=== PATIENT | male | born 1950 | race Caucasian/White ===

== ENCOUNTER → 2023-10-20 10:54 | Outpatient (REF) | payer MEDICARE, SELFPAY | LOC: HWRAD 10:54 | PROVIDERS: ATTENDING PHYSICIAN Family Medicine | DX: I25.10 Atherosclerotic heart disease of native coronary artery without angina pectoris (principal) | CPT/HCPCS: 71046 ==

== ENCOUNTER → 2023-12-25 12:31 | Outpatient (REF) | payer MEDICARE, SELFPAY | LOC: RAD 12:31 | PROVIDERS: ATTENDING PHYSICIAN Physician Assistant; FAMILY PHYSICIAN Family Medicine | DX: I73.9 Peripheral vascular disease, unspecified (principal); R60.9 Edema, unspecified | CPT/HCPCS: 93922; 93925; 93971 ==

== ENCOUNTER 2024-05-02 09:26 | Emergency (ER) | payer MEDICARE, SELFPAY ==
[2024-05-02 09:45] VITALS: BP 120/69
--- NOTE | 2024-05-02 10:05 | ED.GENMED ---
History of Present Illness
General
Chief Complaint: Skin Problem
Source: patient
Time Seen by Provider: 05/02/24 09:50
History of Present Illness
History of Present Illness:
Patient is concerned with an area of ecchymosis over his right posterior elbow. No pain. No known trauma. No other unusual bruising. No distal numbness tingling or weakness.
Past History
Past History
ED Past Medical History: CAD, HTN and Hypercholesterolemia
ED Past Surgical History: Cardiac, Orthopedic and Other (Vascular surgery)
Social History
Tobacco: Non-smoker
Personal:
Living: with family
Employment: Employed
Review of Systems
Review of Systems
All Other Systems: Not applicable
Constitutional: Denies fever or chills
Phy Exam
Physical Exam
Physical Exam:
GENERAL: Alert and oriented in no apparent distress
CARDIAC: Regular rate and rhythm
LUNGS: No respiratory distress
NEUROLOGICAL: Alert and oriented , grossly non-focal
SKIN: Warm and dry, fairly large area of superficial ecchymosis over the right posterior elbow. Approximately 20 cm x 10 cm. No warmth no erythema no open wound. No other unusual bruising
MUSCULOSKELETAL: No edema,no deformity.Good color. No bony tenderness to the right elbow. Good range of motion. Nontender
PSYCH: Normal and appropriate interaction.
Course
Orders/Labs/Results
Orders:
Orders
05/02/24 10:00
Basic Metabolic Panel Urgent
Complete Blood Count/With Diff Urgent
05/02/24 10:56
Potassium Urgent
Abnormal Lab Results
05/02/24
10:00
Potassium 5.3 H mmol/L
(3.5-5.1)
Chloride 109 H mmol/L
(98-107)
BUN 22 H mg/dl
(9-20)
05/02/24 10:00
05/02/24 10:00
Vital Signs
Initial and Last Documented VS:
Initial Vital Signs
Temp Pulse Resp BP Pulse Ox
98.3 F 69 16 120/69 97
05/02/24 09:45 05/02/24 09:45 05/02/24 09:45 05/02/24 09:45 05/02/24 09:45
Last Documented Vital Signs
Temp Pulse Resp BP Pulse Ox
98.3 F 69 16 120/69 97
05/02/24 09:45 05/02/24 09:45 05/02/24 09:45 05/02/24 09:45 05/02/24 09:45
MDM/Problems Addressed
Differential Diagnosis Includes:
Clinically this is a large subcutaneous area of ecchymosis without significant bony abnormality. Nothing to support DVT. No signs of cellulitis. Will check a CBC to evaluate platelets.
Labs stable. Minimal hyperkalemia which was a incidental finding. Likely hemolysis. Will recheck potassium. No reason to stay at this time. If remains minimally elevated can follow-up.
*Pulse Oximetry
Patient hypoxic: no
*Critical Care Note
Total Time (30-74mins, 75-104mins- exclusive of procedures): Not Applicable
Data Reviewed
Review of Other/Old Records Reveals: Labs and Testing
ED Attending Note
-
Portions of this chart may have been created with voice recognition software.� Occasional wrong word or��sound alike� substitutions may have occurred due to the inherent limitations of voice recognition software.
Discharge Plan
Departure
Patient Disposition: Home (Routine Discharge)
Date of Disposition: 05/02/24
Time of Disposition: 10:57
Patient with high blood pressure during this ER visit?: No
Discharge Problem:
Right arm ecchymosis, Mild hyperkalemia
Instructions: Hyperkalemia, Contusion
Prescriptions:
No Action
simvastatin [Zocor] 20 mg Tablet
20 mg PO HS
metoprolol succinate [Toprol XL] 25 mg Tablet Extended Release 24 Hr
12.5 mg PO DAILY
ezetimibe [Zetia] 10 mg Tablet
10 mg PO QPM
coQ10 (ubiquinol) 100 mg Capsule
300 mg PO QPM
magnesium oxide 400 mg magnesium Tablet
400 mg PO QPM
tamsulosin 0.4 MG capsule
0.4 mg PO QPM
aspirin 81 mg Tablet,Delayed Release (Dr/Ec)
81 mg PO DAILY
clopidogrel 75 mg Tablet
75 mg PO DAILY Qty: 90 0RF
Referrals:
Nicolas Escobar, [Family Provider] - Follow up in 2-3 days
Activity Restrictions/Additional Instructions:
I will call you about your repeat potassium result
This area of bruising/ecchymosis should self resolved. Return with redness swelling pain fever spreading ecchymosis or any other concerning symptoms.
Interventions
Interventions:
*Risk Screen - Suicide Last Done: 05/02/24 10:05
*General Assessment Last Done: 05/02/24 10:05
*Neglect/Abuse Screening Last Done: 05/02/24 10:05
*ED COVID-19 Vaccine History Last Done: 05/02/24 10:05
Discharge Date and Time
Print Language: KOREAN
[2024-05-02 10:19] LABS: % Basophils 0.5 % (0-2); % Eosinophils 1.1 % (0-6); % Immature Granulocytes 0.4 % (0-0.5); % Lymphocytes 20.8 % (20.5-51.1); % Monocytes 5.9 % (1.7-9.3); % Neutrophils 71.3 % (42.2-75.2); Absolute Eosinophils 0.1 10^3/uL (0-0.7); Absolute Lymphocytes 1.7 10^3/uL (1.2-3.4); Absolute Monocytes 0.5 10^3/uL (0.1-0.6); Absolute Neutrophils 5.9 10^3/uL (1.4-6.5); Hemoglobin 17.4 g/dL (13.0-18.0); Mean Corp Hgb Conc. 34.1 g/dL (33.0-37.0); Mean Corpuscular Hgb 29.2 pg (27.0-31.0); Mean Corpuscular Volume 85.6 fL (80.0-94.0); Mean Platelet Volume 9.7 fL (7.4-10.4); Nucleated Red Blood Cells % 0 % (-); Platelet Count 177 10^3/uL (130-400); Red Blood Cell Count 5.96 10^6/uL (4.70-6.10); Red Cell Dist. Width 13.2 % (11.5-14.5); White Blood Cell Count 8.3 10^3/uL (4.8-10.8)
[2024-05-02 10:33] LABS: Blood Urea Nitrogen 22 mg/dl (9-20); Calcium 9.8 mg/dl (8.4-10.2); Carbon Dioxide 23 mmol/L (22-30); Chloride 109 mmol/L (98-107); Glucose 94 mg/dl (70-99); Potassium 5.3 mmol/L (3.5-5.1); Sodium 140 mmol/L (135-145); eGFR > 60.00
[2024-05-02 11:19] VITALS: BP 124/74
== END 2024-05-02 11:15 | disposition home or self-care (01) ==
LOC: EMR 09:26
PROVIDERS: EMERGENCY PHYSICIAN Emergency Medicine; FAMILY PHYSICIAN Family Medicine
DX: S50.01XA Contusion of right elbow, initial encounter (principal); E87.5 Hyperkalemia; X58.XXXA Exposure to other specified factors, initial encounter; I10 Essential (primary) hypertension; E78.00 Pure hypercholesterolemia, unspecified; I25.10 Atherosclerotic heart disease of native coronary artery without angina pectoris; Z79.82 Long term (current) use of aspirin; Z88.5 Allergy status to narcotic agent; Z91.048 Other nonmedicinal substance allergy status
CPT/HCPCS: 99283; 80048; 84132; 85025

== ENCOUNTER 2024-05-17 15:37 | Inpatient (IN) | payer MEDICARE, SELFPAY ==
[2024-05-17 11:08] VITALS: BP 126/89
--- NOTE | 2024-05-17 12:05 | ED.GENMED ---
History of Present Illness
General
Chief Complaint: Vascular Symptoms
Source: patient, records, spouse, previous radiology exam and previous hospital records
Exam Limitations: none
Time Seen by Provider: 05/17/24 11:30
Nursing documentation reviewed up to this point in time: agreed with
History of Present Illness
History of Present Illness:
74-year-old male presents with coolness and pain to his right foot into his calf history of the same when he occluded his right femoral artery stent was placed about 15 years ago [facility] followed locally by Dr. Hernandez did have some
bruising of his right arm week or 2 ago aspirin was stopped maintained on Plavix no trauma in his arm no pain
Past History
Past History
ED Past Medical History: CAD, HTN and Hypercholesterolemia
ED Past Surgical History: Cardiac, Orthopedic and Other (Vascular surgery)
Social History
Tobacco: Former smoker
Alcohol: None
Drug: None
Personal:
Living: with family
Employment: Employed
Review of Systems
Review of Systems
All Other Systems: Not applicable
Constitutional: Denies fever or fatigue
EENT: Reports no symptoms
Respiratory: Reports no symptoms
Cardiac: Reports no symptoms
ABD/GI: Reports no symptoms
Musculoskeletal: Reports muscle stiffness and back pain (Chronic)
Skin: Reports no symptoms
Neurological: Reports numbness; Denies dizzy
Endocrine: Reports no symptoms
Phy Exam
Physical Exam
Physical Exam:
Physical Exam
General: no apparent distress, not acutely ill
Neck: No jaundice
Heart: s1/s2 regular rate and rhythm, no murmur. equal radial pulses.
Lungs: no acute respiratory distress. clear bilaterally
Abdomen: Nontender
Neuro: alert and oriented. no focal neurological deficits
Skin: no rash
Psychiatric: well kept. interactive and cooperative
Extremities: Right lower extremity no pallor, slightly cool, diminished posterior tibialis pulse
Course
Orders/Labs/Results
Orders:
Orders
05/17/24 11:46
Vascular Surgery Consult Urgent
Consulting Provider: Kervin Hernandez
Was physician already notified: Yes
05/17/24 12:09
Electrocardiogram (*1) Urgent
Reason for Study: QTc Monitoring
EKG- Treatment ONCE
05/17/24 12:15
CT Abd Aorta Angio W/ Run Off Stat
Comment:
Reason For Exam: cold leg, do not wait for labs please
05/17/24 12:29
Heparin Protocol- PTT Orders As Directed
PTT per Heparin protocol: -Obtain CBC and baseline PTT - if not already collected.
-Obtain PTT 6 hours from start of infusion. Then, every 6 hours until 2 consecutive
PTT's are therapeutic. Then, PTT Daily.
-With each rate change, obtain PTT every 6 hours until 2 consecutive PTT's are
therapeutic. Then, PTT Daily.
Notify MD As Directed
Notify physician if: PTT is greater than or equal to 200.
05/17/24 12:30
Heparin 24678 Units/250 ml 25,000 units in 250 ml IV PER PROTOCOL
Weight to be used for heparin protocol in kilograms (kg):: 92
Protocol:: Vascular Surgery
PTT Goal Range to be used:: PTT 73 to 111 seconds
Order type:: Initial
INITIAL Infusion Dose (UNITS/KG/hr) & then follow protocol:: 18 units/kg/hr
Infusion Dose in UNITS/hr & then follow protocol (UNITS/hr):: 1,700
INFUSION RATE in mL/hr & then follow protocol (mL/hr):: 17
PTT less than or equal to 64 seconds:: Notify Ordering Provider. obtain orders for rate increase &
possible bolus
PTT 64.1 to 72.9 seconds:: Increase rate by 100 units/hr (+ 1 mL/hr)
PTT 73 to 111 seconds:: Target Range. No change in rate.
PTT 111.1 to 130.9 seconds:: Decrease rate by 100 units/hr (- 1 mL/hr)
PTT 131 to 199.9 seconds:: HOLD for 1 hour. Then decrease rate by 200 units/hr (- 2 mL/hr)
PTT greater than or equal to 200 seconds:: STOP INFUSION. Notify Ordering provider to obtain further orders.
Lab follow-up:: Each change, PTT q6h until 2 consecutive are therapeutic. Then PTT
daily.
05/17/24 12:31
Complete Blood Count/With Diff Urgent
Comprehensive Metabolic Panel Urgent
PTT Urgent
Prothrombin Time Urgent
05/19/24 06:00
Complete Blood Count/No Diff Q2D
Comment: Notify MD if platelet count is <130,000 or decreases by 50% from baseline
05/21/24 06:00
Complete Blood Count/No Diff Q2D
Comment: Notify MD if platelet count is <130,000 or decreases by 50% from baseline
05/23/24 06:00
Complete Blood Count/No Diff Q2D
Comment: Notify MD if platelet count is <130,000 or decreases by 50% from baseline
05/25/24 06:00
Complete Blood Count/No Diff Q2D
Comment: Notify MD if platelet count is <130,000 or decreases by 50% from baseline
05/27/24 06:00
Complete Blood Count/No Diff Q2D
Comment: Notify MD if platelet count is <130,000 or decreases by 50% from baseline
05/29/24 06:00
Complete Blood Count/No Diff Q2D
Comment: Notify MD if platelet count is <130,000 or decreases by 50% from baseline
05/31/24 06:00
Complete Blood Count/No Diff Q2D
Comment: Notify MD if platelet count is <130,000 or decreases by 50% from baseline
06/02/24 06:00
Complete Blood Count/No Diff Q2D
Comment: Notify MD if platelet count is <130,000 or decreases by 50% from baseline
Abnormal Lab Results
05/17/24
12:31
Absolute Neuts (auto) 7.8 H 10^3/uL
(1.4-6.5)
Neutrophils % 79.1 H %
(42.2-75.2)
Lymphocytes % 14.6 L %
(20.5-51.1)
Potassium 5.2 H mmol/L
(3.5-5.1)
05/17/24 12:31
05/17/24 12:31
Vital Signs
Initial and Last Documented VS:
Initial Vital Signs
Temp Pulse Resp BP Pulse Ox
98.0 F 64 18 126/89 96
05/17/24 11:08 05/17/24 11:08 05/17/24 11:08 05/17/24 11:08 05/17/24 11:08
Last Documented Vital Signs
Temp Pulse Resp BP Pulse Ox
98.0 F 58 12 134/70 97
05/17/24 11:08 05/17/24 12:32 05/17/24 12:32 05/17/24 12:32 05/17/24 12:32
MDM/Problems Addressed
Differential Diagnosis Includes:
Venous occlusion stent occlusion PVD
MDM/Problems Addressed:
Pain coolness of his
Chronic conditions affecting care:
PVD
Acute Exacerbation and/or Progression of Chronic Illness:
PVD
*Radiology
Radiology exam reviewed: preliminary read by ED provider
*Pulse Oximetry
Patient hypoxic: no
*EKG
Interpreted by ED Provider?: Yes
Interpretation: normal
Comparison EKG: no comparison EKG present
Heart Rate: 78
Rate: normal
Ischemia: non-specific ST changes
*Super[employer] Interpretation
Rate: normal
Interpretation: normal
Heart Rate: 78
Rhythm: sinus
*Critical Care Note
Total Time (30-74mins, 75-104mins- exclusive of procedures): Not Applicable
Data Reviewed
Review of Other/Old Records Reveals: Labs, Operative Reports and Discharge Summary
Source: patient
Update Note
Update Note:
Labs noted, vascular surgery note reviewed
ED Attending Note
-
Portions of this chart may have been created with voice recognition software.� Occasional wrong word or��sound alike� substitutions may have occurred due to the inherent limitations of voice recognition software.
Discharge Plan
Departure
Patient Disposition: Admit
Date of Disposition: 05/17/24
Time of Disposition: 13:20
Admit to: Med/Surg
Presentation/result/management discussed w/ accepting MD/DO: Hospitalist
Patient with high blood pressure during this ER visit?: No
Condition: Fair
Discharge Problem:
Peripheral vascular disease
Prescriptions:
No Action
simvastatin [Zocor] 20 mg Tablet
20 mg PO HS
metoprolol succinate [Toprol XL] 25 mg Tablet Extended Release 24 Hr
12.5 mg PO DAILY
ezetimibe [Zetia] 10 mg Tablet
10 mg PO QPM
coQ10 (ubiquinol) 100 mg Capsule
300 mg PO QPM
magnesium oxide 400 mg magnesium Tablet
400 mg PO QPM
tamsulosin 0.4 MG capsule
0.4 mg PO QPM
aspirin 81 mg Tablet,Delayed Release (Dr/Ec)
81 mg PO DAILY
clopidogrel 75 mg Tablet
75 mg PO DAILY Qty: 90 0RF
Interventions
Interventions:
*Risk Screen - Suicide Last Done: 05/17/24 11:08
*General Assessment Last Done: 05/17/24 11:08
*Neglect/Abuse Screening Last Done: 05/17/24 11:08
ED- Cardiac Assessment Last Done: 05/17/24 12:35
ED- Pulmonary Assessment Last Done: 05/17/24 12:35
ED-Peripheral Vascular Assessment Last Done: 05/17/24 12:35
ED-Skin Assessment Last Done: 05/17/24 12:35
Discharge Date and Time
Print Language: KOSOVAN
--- NOTE | 2024-05-17 12:17 | CON.VAS ---
Addendum entered and electronically signed by Lizandro Stoner III, MD 05/17/24 20:03:
This patient was seen and examined with MELONIE Juares. I agree with the history and physical exam as well as the assessment and plan. I have the following additions:
Patient is known to the vascular surgery service
Lower extremity endovascular interventions performed at [facility] many years ago
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
Had an episode of acute stent thrombosis 1 year ago in April 2023 that was treated endovascularly
Has another recurrent event in the right lower extremity
Onset of lower extremity discomfort earlier today similar to what he experienced a year ago
I personally reviewed the CT angiogram images which show thrombosis of the right superficial femoral artery stent and distal reconstitution of the popliteal artery.
On physical examination he is grossly intact from a neuro motor standpoint in the left lower extremity, foot and toes
He has a monophasic Doppler signal in the right posterior tibial artery at the ankle
My recommendation is for therapeutic anticoagulation with heparin
Continue antiplatelet therapy
Vein mapping
Revascularization with either RLE bypass, if he has acceptable UE vein conduit (prior b/l LE GSV harvests), or consideration of percutaneous transmural artery bypass/DETOUR which may be a good option for him.
We will continue discussions and development of surgical plan over the weekend.
Call with questions or concerns
Signed:
Lizandro Stoner III, MD
[facility] Vascular Surgery
[phone] ([facility])
Addendum entered and electronically signed by MELONIE Juares 05/17/24 14:15:
Dr. Stoner reviewed CTA with patient and . Right SFA is occluded.
Plan:
-Admit to medicine
-Continue heparin drip
-Upper extremity vein mapping, for bypass early next week
-Cardiac optimization
Original Note:
Consultation
Consultation Request
Performing Provider: Dannielle WILHELM
Reason for Consultation: Cold leg
Medical History
-
Chief Complaint: Right lower extremity pain
History of Present Illness:
74-year-old male well-known to the vascular service presents to the ER today for sudden onset right calf and foot pain while playing pickle ball this morning. Denies trauma or injury. Patient had a Viabahn stent placed with an a prior stent in his
right SFA on 05/02/[address] Hernandez. Patient reports no issues since that stent placement. Vascular consult for right lower extremity pain.
Patient seen at bedside in the ER this a.m. with present. Patient admits to sudden onset pain in the right foot and calf while playing pickle ball. Patient states he left pickleball to go home once arriving home his brought him to the
ER. The pain has subsided but patient notes the foot feels stiff when attempting to move his toes, feels cool to him and there is a decrease in the sensation he feels. His toes nails are dusky and cap refill is delayed. He has +1/2 femoral pulse
and a faint Doppler signal at the PT. patient was recently here on 05/02/2024 in the ER for bruising of the right upper extremity. He had reached out to Dr. Hernandez's office and was notified he could stop taking his aspirin. He has continued on his
Plavix and has not missed a dose.
Vascular procedure:
05/02/23: Placement of [place] Viabahn 6 mm x 10 cm covered stent through occluded SFA stent.
Dr Herrera Oliver Right SFA stent from ' years ago'
Past Medical History
Past Medical History: HTN, Hypercholesterolemia and Other (PAD)
Past Surgical History: Other (See above)
Social History
Tobacco: Non-Smoker
Personal:
Living: With Family
Family History
Family History: Reviewed & Not Pertinent
Allergies / Home Medications
Allergy/AdvReac Type Severity Reaction Status Date / Time
codeine Allergy UNSURE OF Verified 05/17/24 11:08
REACTION
pollen extracts Allergy Unknown Verified 05/17/24 11:08
�Medication �Instructions �Recorded �Confirmed �Type
aspirin 81 mg tablet,delayed 81 mg PO DAILY 05/02/23 05/02/23 History
release
coQ10 (ubiquinol) 100 mg capsule 300 mg PO QPM 05/02/23 05/02/23 History
ezetimibe 10 mg tablet (Zetia) 10 mg PO QPM 05/02/23 05/02/23 History
magnesium oxide 400 mg PO QPM 05/02/23 05/02/23 History
metoprolol succinate 25 mg 12.5 mg PO DAILY 05/02/23 05/02/23 History
tablet,extended release 24 hr
(Toprol XL)
simvastatin 20 mg tablet (Zocor) 20 mg PO HS 05/02/23 05/02/23 History
tamsulosin 0.4 mg capsule 0.4 mg PO QPM 05/02/23 05/02/23 History
clopidogrel 75 mg tablet 75 mg PO DAILY #90 tabs 05/03/23 Rx
Review of Systems
-
History Source: Patient
All other systems: Negative unless noted
Constitutional: Reports No Symptoms
EENT: Reports No Symptoms
Respiratory: Reports No Symptoms
Cardiac: Reports No Symptoms
Vascular: Reports Leg Pain / Claudication and Numbness
Abdomen/GI: Reports No Symptoms
: Reports No Symptoms
Musculoskeletal: Reports Muscle Stiffness
Skin: Reports No Symptoms
Neurological: Reports No Symptoms
Endocrine: Reports No Symptoms
Physical Exam
Vital Signs
Temp Pulse Resp BP Pulse Ox
98.0 F 64 18 126/89 96
05/17/24 11:08 05/17/24 11:08 05/17/24 11:08 05/17/24 11:08 05/17/24 11:08
Physical Exam
General: No Apparent Distress
HEENT: Normocephalic and Atraumatic
Respiratory: Non Labored Respirations
Cardiac: Negative JVD
GI: Soft and Non Tender
Musculoskeletal: No Clubbing and Cyanosis (Right toenail beds dusky)
Skin: Other (Right foot slightly cooler than left, slightly paler than left)
Neuro: Awake, Alert and Oriented
Psych: Calm
Pulses: Right Femoral: +1, Left Posterior Tibial: +1 and Right Posterior Tibial: Doppler (Faint)
Assessment / Plan
-
74-year-old male with new onset pain, coolness, numbness to the right foot
History of stent thrombosis to the right SFA
New right SFA stent placed last year by Dr. Hernandez
Plan:
-Stat CT angio with runoff
-Heparin drip
-N.p.o. for possible lysis
-Admit to hospitalist
-Discussed with Dr. Hernandez
[2024-05-17 12:32] VITALS: BP 134/70
[2024-05-17 12:53] LABS: APTT 26.5 Sec (23.4-35.0); INR 1.08; PT 13.9 Sec (11.4-14.6)
[2024-05-17 13:07] LABS: % Basophils 0.2 % (0-2); % Eosinophils 0.2 % (0-6); % Immature Granulocytes 0.4 % (0-0.5); % Lymphocytes 14.6 % (20.5-51.1); % Monocytes 5.5 % (1.7-9.3); % Neutrophils 79.1 % (42.2-75.2); Absolute Lymphocytes 1.4 10^3/uL (1.2-3.4); Absolute Monocytes 0.5 10^3/uL (0.1-0.6); Absolute Neutrophils 7.8 10^3/uL (1.4-6.5); Hematocrit 44.3 % (39.0-52.0); Mean Corp Hgb Conc. 33.9 g/dL (33.0-37.0); Mean Corpuscular Hgb 28.8 pg (27.0-31.0); Mean Platelet Volume 9.5 fL (7.4-10.4); Nucleated Red Blood Cells % 0 % (-); Platelet Count 203 10^3/uL (130-400); Red Blood Cell Count 5.21 10^6/uL (4.70-6.10); Red Cell Dist. Width 12.9 % (11.5-14.5); White Blood Cell Count 9.8 10^3/uL (4.8-10.8)
[2024-05-17 13:08] LABS: ALT (SGPT) 14 U/L (0-50); AST (SGOT) 26 U/L (17-59); Albumin 3.9 g/dl (3.5-5.0); Alkaline Phosphatase 84 U/L (38-126); Blood Urea Nitrogen 15 mg/dl (9-20); Calcium 9.4 mg/dl (8.4-10.2); Carbon Dioxide 29 mmol/L (22-30); Chloride 107 mmol/L (98-107); Glucose 98 mg/dl (70-99); Potassium 5.2 mmol/L (3.5-5.1); Sodium 144 mmol/L (135-145); Total Bilirubin 0.8 mg/dl (0.2-1.3); Total Protein 6.3 g/dl (6.3-8.2); eGFR > 60.00
[2024-05-17 13:17] VITALS: BP 145/71
[2024-05-17] MEDS: HEPARIN 25000 UNITS/250 ML IV (13:21)
--- NOTE | 2024-05-17 14:26 | HPS.HSE ---
Family Physician
-
Family Physician:
Chief Complaint
-
Right calf and foot pain
History of Present Illness
74-year-old male with a past medical history PAD status post right SFA stent on 05/02/2023, CAD status post CABG and cardiac stent placement, hypertension, hyperlipidemia, anxiety/depression, BPH presents with acute onset of right calf and foot pain
while pain pickleball. Patient denies pain at rest, but states pain occurs when he walks. Associated symptoms include decreased sensation in the right foot, and his right foot is cool to the touch. He also reports spontaneous bruising of his
right arm a few weeks ago. He denies trauma. He reached out to Dr. Hernandez's office, and was told to stop taking his aspirin. He has continued his Plavix. No fever, no chest pain, no shortness of breath. No black or bloody stools. No hematuria.
No nausea, no vomiting.
Medical History
Past Medical History
Past Medical History: Reports Other
Additional Past Medical History:
Coronary artery disease status post stent placement and CABG
Peripheral artery disease
Kidney stones
Hypertension
Hyperlipidemia
Anxiety/depression
Benign prostatic hypertrophy
Past Surgical History: Reports Other
Additional Past Surgical History:
CABG
Cardiac stents
Bilateral leg stents
Left total knee arthroplasty
Social History
Tobacco: Former Smoker (Quit over 40 years ago)
Alcohol: Occasional
Drug: None
Personal:
Living: With Family
Family History
Family History: Not pertinent
Allergies / Home Medications
Allergies reflects when Allergies were last updated in bttn.
Home Medications with original date entered in bttn
Allergy/Medication List:
Allergies
Allergy/AdvReac Type Severity Reaction Status Date / Time
codeine Allergy UNSURE OF Verified 05/17/24 11:08
REACTION
pollen extracts Allergy Unknown Verified 05/17/24 11:08
Home Medications Table - record
�Medication �Instructions �Recorded �Confirmed
coQ10 (ubiquinol) 100 mg capsule 300 mg PO QPM 05/02/23 05/17/24
ezetimibe 10 mg tablet (Zetia) 10 mg PO QPM 05/02/23 05/17/24
simvastatin 20 mg tablet (Zocor) 20 mg PO HS 05/02/23 05/17/24
tamsulosin 0.4 mg capsule 0.4 mg PO QPM 05/02/23 05/17/24
clopidogrel 75 mg tablet 75 mg PO HS 05/17/24 05/17/24
sertraline 50 mg tablet 25 mg PO HS 05/17/24 05/17/24
Review of Systems
-
A 12 point ROS was completed and negative except as noted: Yes
Physical Exam
Vital Signs
Vital Signs
Temp Pulse Resp BP Pulse Ox
98.0 F 55 12 145/71 99
05/17/24 11:08 05/17/24 13:17 05/17/24 12:32 05/17/24 13:17 05/17/24 13:17
Physical Exam
General: Well Developed, Well Nourished and No Apparent Distress
HEENT: NormoCephalic, Anicteric and Moist mucous membranes
Respiratory: Clear
Cardiac: S1/S2 and Regular Rhythm
Musculoskeletal: No Clubbing, No Edema and Other (Decreased sensation of right foot, right foot cool to the touch, decreased pulses)
Skin: Warm
Neuro: Awake, Alert and Oriented
Psych: Calm
Laboratory Results
-
05/17/24 12:31
05/17/24 12:31
Laboratory Results
PT 13.9 Sec (11.4-14.6) 05/17/24 12:31
INR 1.08 05/17/24 12:31
APTT 26.5 Sec (23.4-35.0) 08/30/24 12:31
Total Bilirubin 0.8 mg/dl (0.2-1.3) 05/17/24 12:31
AST 26 U/L (17-59) 05/17/24 12:31
ALT 14 U/L (0-50) 05/17/24 12:31
Alkaline Phosphatase 84 U/L (38-126) 05/17/24 12:31
Impression/Plan
-
HPI: 74-year-old male with a past medical history PAD status post right SFA stent on 05/02/2023, CAD status post CABG and cardiac stent placement, hypertension, hyperlipidemia, anxiety/depression, BPH presents with acute onset of right calf and foot
pain while pain pickleball. Patient denies pain at rest, but states pain occurs when he walks. Associated symptoms include decreased sensation in the right foot, and his right foot is cool to the touch. He also reports spontaneous bruising of his
right arm a few weeks ago. He denies trauma. He reached out to Dr. Hernandez's office, and was told to stop taking his aspirin. He has continued his Plavix. No fever, no chest pain, no shortness of breath. No black or bloody stools. No hematuria.
No nausea, no vomiting.
#Critical limb ischemia of right lower extremity
#Peripheral artery disease
Status post right SFA stent on 05/02/[address] Hernandez
Appreciate vascular surgery input, for right lower extremity bypass next week
Vascular surgery recommends cardiology consult for optimization
Continue heparin drip, Plavix, statin
Check fasting lipid profile
#Right upper extremity ecchymosis
Denies injury, denies trauma
Stopped aspirin a few weeks ago
Platelets are normal, coag profile normal, unclear etiology
Continue to monitor
#Coronary artery disease status post CABG and stent placement
Continue statin, Plavix
Cardiology consulted by vascular surgery for optimization
#Hyperkalemia
Mild, low potassium diet, recheck in a.m.
#Anxiety/depression
Continue SSRI
#BPH
Continue Flomax
DVT prophylaxis�heparin drip
Full code
Total time spent to see the patient on the floor, examine the patient, review data and lab results, discuss treatment plan with patient, nursing staff around 77 minutes.
--- NOTE | 2024-05-17 15:21 | CON.CAR ---
Addendum entered and electronically signed by Anton Antonio MD 05/17/24 17:11:
I saw and examined the patient.
The GAS FLOW REGULATOR's note was reviewed and I agree with the note.
Primary hand tool lapper Dr. Elizabeth.
74-year-old male with a history of coronary artery disease, coronary artery bypass grafting 2018, coronary stenting with last procedure including stenting of the left circumflex and diagonal 2017, ejection fraction 45 to 50%, PAD left SFA stent
04/2023. Patient is normally active and plays [employer] ball. Today he had acute pain right lower calf and which then migrated into the foot. By the time he got home pain then went up to his upper leg with rest symptoms resolved and now is pain-free.
Seen by vascular surgery. CTA showed occluded right SFA and now patient is being assessed for lower extremity bypass. Due to prior cardiac history preop cardiovascular evaluation requested.
Patient has some increased risk due to previous history of coronary artery disease and coronary stenting along with ejection fraction 45 to 50%. However he has good functional capacity and is able to perform greater than 4 METS without symptoms.
ECG is stable. Although patient has some increased risk his condition appears stable to proceed with vascular surgery as scheduled. No additional changes in testing or medical therapy required.
-Continue aspirin 81 mg a day without interruption
-Patient remains on IV heparin under the direction of vascular surgery
-If patient develops new symptoms then please let us know otherwise we will reassess postoperatively
Original Note:
Consultation
Consultation Request
Date/Time Consultation Requested: 05/17/24 2:15p
Date/Time Consultation Performed: 05/17/24 3p
Requesting Provider: MELONIE Juares
Performing Provider: MELONIE Eugene for Dr. Antonio
Reason for Consultation: pre-op risk assessment
Medical History
-
Chief Complaint: RLE pain
History of Present Illness:
Mr. Aleman is a 74 yo male with CAD s/p CABG 2013, then multiple PCI, last Lcx and diag 2017, prior NSTEMI, ICM EF 45-50%, PAD s/p left SFA stent 04/[address] Hernandez, sinus bradycardia (did not tolerate beta keaton), IVCD, dyslipidemia,
statin intolerance to Crestor (mouth swelling) but tolerates Zocor, who presents to the ER with c/o RLE pain after playing pickle ball today. 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
cyanotic toes. CTA showed occluded right SFA, he was seen by Dr. Stoner who plans for UE vein mapping and bypass early next week. He is admitted to the hospitalist service and we are consulted for pre-op risk assessment. He plays pickle ball 3
times a week w/o any cardiac symptoms. EKG is stable w/o ischemia. He states having spontaneous ecchymosis to RUE and was seen in the ER 05/02/24, Dr. Hernandez recommended stopping ASA and continue Plavix. He also states having COVID 1 month ago.
Past Medical History
Past Medical History: Other (as above)
Past Surgical History: Other (as above)
Social History
Tobacco: Former Smoker
Alcohol: Occasional
Personal:
Living: With Family
Family History
Family History: Reviewed & Not Pertinent
Allergies / Home Medications
Allergy/AdvReac Type Severity Reaction Status Date / Time
codeine Allergy UNSURE OF Verified 05/17/24 11:08
REACTION
pollen extracts Allergy Unknown Verified 05/17/24 11:08
�Medication �Instructions �Recorded �Confirmed �Type
coQ10 (ubiquinol) 100 mg capsule 300 mg PO QPM 05/02/23 05/17/24 History
ezetimibe 10 mg tablet (Zetia) 10 mg PO QPM 05/02/23 05/17/24 History
simvastatin 20 mg tablet (Zocor) 20 mg PO HS 05/02/23 05/17/24 History
tamsulosin 0.4 mg capsule 0.4 mg PO QPM 05/02/23 05/17/24 History
clopidogrel 75 mg tablet 75 mg PO HS 05/17/24 05/17/24 History
sertraline 50 mg tablet 25 mg PO HS 05/17/24 05/17/24 History
Review of Systems
-
History Source: Patient
All other systems: Negative unless noted
Physical Exam
Vital Signs
Temp Pulse Resp BP Pulse Ox
98.0 F 60 14 145/71 98
05/17/24 11:08 05/17/24 14:00 05/17/24 14:00 05/17/24 13:17 05/17/24 14:00
Lab Results
05/17/24 12:31
05/17/24 12:31
Physical Exam
General: Well Developed, Well Nourished and No Apparent Distress
HEENT: Normocephalic, Anicteric and Moist Mucous Membranes
Respiratory: Clear and Non Labored Respirations
Cardiac: S1/S2 and Regular Rhythm
Breast: Deferred by me
GI: Soft, Non Tender, Non Distended and Normal Bowel Sounds
Rectal: Deferred by Provider
Genito-urinary: No Costovertebral Tender
Musculoskeletal: No Clubbing, No Cyanosis and No Edema
Skin: Warm, Dry and Other (RLE toe nails are dusky, cap refill is delayed)
Neuro: AO x 3
Psych: Calm
Impression / Plan
-
Pre-op risk assessment - PAD with occluded right SFA, RLE pain.
- denies any symptoms, specifically CP, SOB or palps.
- able to perform > 4 METS without cardiac symptoms.
- he is euvolemic, no heart failure symptoms, stable weights at home on medical therapy.
- Echo 08/01/23: EF 45-50%, septal hypokinesis, mild MR, nl RV, mild TR.
- intermediate risk given his comorbidities.
RLE pain - CTA showed occluded right SFA.
- he was seen by Dr. Stoner today who plans for UE vein mapping and bypass early next week.
- currently on Heparin and continued on Plavix.
- known PAD with left SFA stent, on Plavix.
CAD - s/p CABG 2013, stable with patent grafts on cath in 2019.
- no anginal symptoms.
- continue medial therapy.
ICM - EF 45-50%.
- no heart failure on exam.
- denies symptoms at home.
- stable weight of 198-199 lbs at home.
- not on BB due to symptomatic bradycardia.
HLD - tolerating Zocor and Zetia.
- 04/2024 LDL 74.
- will review PCSK9 inhibitors at next outpatient visit.
RUE ecchymosis - spontaneous, 05/02/24 ER visit.
- ecchymosis is resolving.
- Dr. Hernandez recommended stopping ASA and has continued on Plavix.
Data Reviewed
-
EKG: Tracing Personally Visualized and interpreted (SB 56 bpm)
CT Scan: Report Reviewed by me (right SFA occluded)
Medical Tests (Nuc Med, Echo etc): Report Reviewed by me (Echo 08/01/23: EF 45-50%, septal hypokinesis, mild MR, nl RV, mild TR.) and Other (Cath 2019: CRUZ-LAD, SVG-OM1, SVG-RPDA patent; no culprit for NSTEMI)
Labs: Labs Reviewed by me
Old Records: Reviewed
[2024-05-17 16:34] VITALS: BP 136/93
[2024-05-17 16:48] VITALS: BP 126/72; BMI 28.3
[2024-05-17] MEDS: FLOMAX 0.4 MG PO (18:11)
[2024-05-17] MEDS: ZETIA 10 MG PO (18:11)
[2024-05-17] MEDS: ASPIR LOW (ENTERIC COATED) 81 MG PO (18:11)
[2024-05-17 19:53] LABS: APTT 81.9 Sec (23.4-35.0)
[2024-05-17] MEDS: ZOLOFT 25 MG PO (21:33)
[2024-05-17] MEDS: PLAVIX 75 MG PO (21:33)
[2024-05-17 23:26] VITALS: BP 118/68
[2024-05-18] MEDS: HEPARIN 25000 UNITS/250 ML IV ×2 (04:23→22:06)
[2024-05-18 07:00] VITALS: BP 127/65
--- NOTE | 2024-05-18 08:07 | W.PN.HOSP.TC ---
Today's Communication/Plan
-
see bold
Assessment / Plan
Assessment / Plan
HPI: 74-year-old male with a past medical history PAD status post right SFA stent on 05/02/2023, CAD status post CABG and cardiac stent placement, hypertension, hyperlipidemia, anxiety/depression, BPH presents with acute onset of right calf and foot
pain while pain pickleball. Patient denies pain at rest, but states pain occurs when he walks. Associated symptoms include decreased sensation in the right foot, and his right foot is cool to the touch. He also reports spontaneous bruising of his
right arm a few weeks ago. He denies trauma. He reached out to Dr. Hernandez's office, and was told to stop taking his aspirin. He has continued his Plavix. No fever, no chest pain, no shortness of breath. No black or bloody stools. No hematuria.
No nausea, no vomiting.
#Critical limb ischemia of right lower extremity
#Peripheral artery disease
Status post right SFA stent on 05/02/[address] Hernandez
Appreciate vascular surgery input, for right lower extremity bypass Tues
Cardiology following for optimization
Continue heparin drip, Plavix, aspirin, statin
#Right upper extremity ecchymosis
Denies injury, denies trauma
Platelets are normal, coag profile normal, unclear etiology
Hematology consulted, continue to monitor
#Coronary artery disease status post CABG and stent placement
Continue statin, aspirin, Plavix
Cardiology following for optimization
#Hyperkalemia
Resolved
#Anxiety/depression
Continue SSRI
#BPH
Continue Flomax
DVT prophylaxis�heparin drip
Full code
Total time spent to see the patient on the floor, examine the patient, review data and lab results, discuss treatment plan with patient, nursing staff around 45 minutes.
Physical Exam
General: No acute distress
HEENT: Normocephalic, Atraumatic, EOMI, MMM
Respiratory: Clear to Auscultation bilaterally
Cardiac: Normal S1/S2, Regular Rate and Rhythm
GI: Soft, Nontender, Nondistended, Normal Bowel Sounds
Extremities: No Clubbing, Cyanosis, or Edema
Scattered ecchymosis of right upper extremity noted
Neuro: Nonfocal/Grossly Intact
Psych: Calm, Cooperative
Derm: No Visible lesions
Anticipated Discharge: > 48 hours
Subjective/Interval History
-
Date of Service: May 18, 2024
Patient does not have any right foot or right calf pain at rest. No fever, no vomiting.
Objective Data
-
Labs:
Laboratory Results
05/17/24 05/18/24 05/18/24
19:30 02:07 06:57
APTT 81.9 H 131.0 H
Sodium Pending
Potassium Pending
Chloride Pending
Carbon Dioxide Pending
BUN Pending
Creatinine Pending
Glucose Pending
Calcium Pending
05/18/24
10:20
APTT Pending
Sodium
Potassium
Chloride
Carbon Dioxide
BUN
Creatinine
Glucose
Calcium
Vital Signs:
Vital Signs
Temp Pulse Resp BP Pulse Ox
97.8 F 59 18 118/68 96
05/17/24 23:26 05/17/24 23:26 05/17/24 23:26 05/17/24 23:26 05/17/24 23:26
I&O
05/17/24 05/18/24 05/19/24
06:59 06:59 06:59
Intake Total 480 / 480 840 / 840
Output Total 350 / 350
Balance 480 / 480 490 / 490
[2024-05-18 08:43] LABS: Blood Urea Nitrogen 15 mg/dl (9-20); Calcium 9.3 mg/dl (8.4-10.2); Carbon Dioxide 24 mmol/L (22-30); Chloride 108 mmol/L (98-107); Estimated Creatinine Clearance 65 ml/min; Glucose 96 mg/dl (70-99); HDL Cholesterol 35 mg/dl; LDL Cholesterol, Calculated 60 mg/dl; Potassium 4.3 mmol/L (3.5-5.1); Sodium 143 mmol/L (135-145); Total Cholesterol 121 mg/dl (50-199); Triglyceride 133 mg/dl (10-149); Very Low Density Lipoprotein 26 mg/dl (0-30); eGFR > 60.00
--- NOTE | 2024-05-18 08:43 | W.PN.UPDATE ---
Update Note
Progress Note Update
Patient resting comfortably in bed
No complaints
No pain in right foot/calf
Heparin gtt running
Right foot is warm/pink
I had a long conversation with Mr. Aleman at bedside this morning. I reviewed his vein mapping which shows less than ideal upper extremity vein for bypass conduit. His bilateral lower extremity great saphenous vein has been harvested previously.
I discussed several surgical options with him.
1.) PTFE bypass of the right lower extremity. The the technical aspects of this procedure were discussed with him in detail. The benefits and rationale for this approach were discussed with him in detail. Operative risks were discussed with him
in detail including but not limited to RI, bleeding, infection, wound healing complications, graft thrombosis, need for additional procedures in the future and potential limited long-term patency
2.) Percutaneous transmural artery bypass/DETOUR procedure. The technical aspects of this procedure were discussed with him in detail. The benefits and rationale for this approach were discussed with him in detail. Operative risks were discussed
with him in detail including but not limited to arterial access site injury, bleeding, contrast nephropathy, DVT, stent thrombosis, failure to successfully complete the endovascular procedure and the need for additional procedures.
We also spent a good amount of time comparing the 2 procedures, risks/benefits of each and addressing specific questions as to the differences in recovery for both, both inpatient and outpatient. We also addressed some specific questions he had
regarding how each of these procedures might impact him and his active lifestyle as well as medical therapy instead of DAPT. I did explain to him that no matter what we do I would plan to maintain him on Compass protocol at a minimum long-term and
perhaps after DETOUR he would need temporary systemic anticoagulation. I also explained that if we did a DETOUR bypass it would not eliminate the possibility of doing a PTFE bypass in the future if the stents failed/thrombosed.
He expressed a clear understanding of our conversation and the options I presented to him. He would like to talk with his and then will make a final decision about a surgical plan.
Lizandro Stoner III, MD
[facility]
[phone] (zenm)
[2024-05-18] MEDS: ASPIR LOW (ENTERIC COATED) 81 MG PO (08:49)
[2024-05-18 10:47] LABS: APTT 103.9 Sec (23.4-35.0)
[2024-05-18 15:00] VITALS: BP 109/62
[2024-05-18 16:27] LABS: APTT 114.5 Sec (23.4-35.0)
--- NOTE | 2024-05-18 16:56 | CM ---
Alert awake oriented patient who lives with his Florence who lives in a 2 story home with 2 step to enter and bed and bathroom on first floor. He is independent in driving and all activities of daily living.Offered Vn he declined need.
[facility] hx /No SNF hx
Pharmacy [facility]
PCP DR Escobar
PLAN Home no anticipated needs
[2024-05-18] MEDS: FLOMAX 0.4 MG PO (17:47)
[2024-05-18] MEDS: ZETIA 10 MG PO (17:47)
[2024-05-18 19:00] VITALS: BP 120/60
[2024-05-18 19:34] LABS: Troponin I < 0.012 ng/ml
--- NOTE | 2024-05-18 19:44 | PTCARENOTE ---
PT co 3/10 burnin pain in upper chest wall that was reproducible with palpation. He also state it hurst more with deep inspiration. VSS bp 120/60 HR 62, rr 22. pulse ox 98% on room air. EKG completed showed sinus leyla 53 with no changes
noted. At time of event pt was resting in bed holding sleeping, pt ate at 5 pm, denied gerd, pt denied any nausea vomiting or referred pain. notified and trops orderd.
[2024-05-18] MEDS: ZOLOFT 25 MG PO (21:07)
[2024-05-18] MEDS: PLAVIX 75 MG PO (21:07)
--- NOTE | 2024-05-18 21:30 | CON.ONC ---
Impression
Impression
Peripheral vascular disease
Coronary artery disease
TANJA
Hyperlipidemia
Plan
Plan
I am at a loss to explain the distribution of severe ecchymoses limited to one upper arm.
He is on multiple medications and supplements that can cause bleeding/bruising but he tells me this had not occurred previously.
Baseline platelet count and coag studies were normal.
Cannot do von willebrand panel with pt on anti-platelet therapy.
The bruising has been improving with no new areas so hopefully this will prove to be a self-limited event.
Antiphospholipid antibody panel ordered for completeness; if positive, with hx arterial clotting, would suggest warfarin.
Thank you for consult, will follow along with you.
Patient History
History of Present Illness
74-year-old male with a past medical history PAD status post right SFA stent on 05/02/2023, CAD status post CABG and cardiac stent placement, hypertension, hyperlipidemia, anxiety/depression, BPH presents with acute onset of right calf and foot pain
while pain pickleball. He has been evaluated by Vascular Surgery and is considering options of lower extremity arterial bypass or medical therapy. Separately he reports spontaneous bruising of his right arm a few weeks ago. He was on
Plavix/Aspirin at that time but had been on these medications previously without bruising complication. Ecchymoses were extensive but limited to the right arm and are now improving. He reached out to Dr. Hernandez's office, and was told to stop taking
his aspirin. He also takes curcumin and Co-Q10. Pt denies history of easy bruisability, epistaxis or other platelet-type bleeding prior to the acute onset of ecchymoses.
Past-Medical/Surgical History
PMHx:
Coronary artery disease status post stent placement and CABG
Peripheral artery disease
Kidney stones
Hypertension
Hyperlipidemia
Anxiety/depression
Benign prostatic hypertrophy
PSHx:
CABG
Cardiac stents
Bilateral leg stents
Left total knee arthroplasty
Social History
Tobacco: Former Smoker (Quit over 40 years ago)
Alcohol: Occasional
Drug: None
Personal:
Living: With Family
Family History
Family History: Not pertinent
Patient Medication
�Medication �Instructions �Recorded �Confirmed �Last Taken �Type
coQ10 (ubiquinol) 100 mg capsule 300 mg PO QPM 05/02/23 05/17/24 05/16/24 History
ezetimibe 10 mg tablet (Zetia) 10 mg PO QPM 05/02/23 05/17/24 05/16/24 History
simvastatin 20 mg tablet (Zocor) 20 mg PO HS 05/02/23 05/17/24 05/16/24 History
tamsulosin 0.4 mg capsule 0.4 mg PO QPM 05/02/23 05/17/24 05/16/24 History
clopidogrel 75 mg tablet 75 mg PO HS 05/17/24 05/17/24 05/16/24 History
sertraline 50 mg tablet 25 mg PO HS 05/17/24 05/17/24 05/16/24 History
Active Medications
Generic Name Dose Route Start Last Admin
Trade Name Freq PRN Reason Stop Dose Admin
Acetaminophen 650 mg 05/17/24 16:40
Acetaminophen 325 Mg Tablet PO 06/14/24 16:39
Q4HPRN PRN
mild pain/COLON/temp> 100.4F
Aspirin 81 mg 05/17/24 18:00 05/18/24 08:49
Aspirin 81 Mg (Enteric Coated) Tablet PO 06/14/24 17:59 81 mg
DAILY JUAN Administration
Bisacodyl 10 mg 05/17/24 16:40
Bisacodyl 10 Mg Rectal Suppository RECTAL 06/14/24 16:39
[id number] PRN
constipation
Clopidogrel Bisulfate 75 mg 05/17/24 22:00 05/18/24 21:07
Clopidogrel 75 Mg Tablet PO 06/14/24 21:59 75 mg
HS JUAN Administration
Ezetimibe 10 mg 05/17/24 18:00 05/18/24 17:47
Ezetimibe (Zetia) 10 Mg Tablet PO 06/14/24 17:59 10 mg
QPM JUAN Administration
Heparin Sodium 25,000 units in 250 mls @ 0 mls/hr 05/18/24 20:45
Heparin 74844 Units/250 Ml IV
PER PROTOCOL JUAN
Protocol
Per Protocol
Simvastatin [Zocor] 0 mg 05/17/24 22:00
20 Mg Tablet Po Hs PO 06/14/24 21:59
HS JUAN
Ondansetron HCl 4 mg 05/17/24 16:40
Ondansetron 4 Mg/2 Ml Vial IV 06/14/24 16:39
Q6HPRN PRN
nausea and vomiting
Oxycodone HCl 5 mg 05/17/24 16:40
Oxycodone 5 Mg Regular Release Tablet PO 05/31/24 16:39
Q4HPRN PRN
moderate pain
Polyethylene Glycol 17 grams 05/17/24 16:40
Polyethylene Glycol Powder 17 Grams Packet PO 06/14/24 16:39
DAILYPRN PRN
constipation
Sertraline HCl 25 mg 05/17/24 22:00 05/18/24 21:07
Sertraline 25 Mg Tablet PO 06/14/24 21:59 25 mg
HS JUAN Administration
Sodium Chloride 0 flush 05/17/24 17:00
Sodium Chloride 0.9% (Flush) Syringe IV 06/14/24 16:59
PER PROTOCOL JUAN
Tamsulosin HCl 0.4 mg 05/17/24 18:00 05/18/24 17:47
Tamsulosin 0.4 Mg Capsule PO 06/14/24 17:59 0.4 mg
QPM JUAN Administration
Review of Systems
-
History Source: Patient, Family and Records
All Other Systems: Reviewed and Negative
Physical Exam
-
General: Well Developed, Well Nourished and No Apparent Distress
HEENT: Moist Mucous Membranes; Negative Jaundice
Cardiology: Normal Sinus Rhythm, S1 and S2
Pulmonary: Clear; Negative Wheezes
GI: Soft and Normal Bowel Sounds
Musculoskeletal: No Clubbing, No Cyanosis and No Edema
Extremities: Other (Resolving ecchymoses R upper arm)
Neurology: Non Focal and No Lateralizing Symptoms
Skin: Warm and Dry
Hematologic / Lymphatic: No Lymphadenopathy and No Petechiae
Psych: Calm and Intact Judgement/Insight
Labs
Lab Results
WBC 9.8 10^3/uL (4.8-10.8) 05/17/24 12:31
RBC 5.21 10^6/uL (4.70-6.10) 05/17/24 12:
Hgb 15.0 g/dL (13.0-18.0) 05/17/24 12:31
Hct 44.3 % (39.0-52.0) 05/17/24 12:31
MCV 85.0 fL (80.0-94.0) 05/17/24 12:31
MCH 28.8 pg (27.0-31.0) 05/17/24 12:31
MCHC 33.9 g/dL (33.0-37.0) 05/17/24 12:
RDW 12.9 % (11.5-14.5) 05/17/24 12:31
Plt Count 203 10^3/uL (130-400) 05/17/24 12:31
MPV 9.5 fL (7.4-10.4) 05/17/24 12:31
Abs Immat Gran (auto) 0.0 10^3/uL (0-0.05) 05/17/24 12:31
Absolute Neuts (auto) 7.8 10^3/uL (1.4-6.5) H 05/17/24 12:
Absolute Lymphs (auto) 1.4 10^3/uL (1.2-3.4) 05/17/24 12:
Absolute Monos (auto) 0.5 10^3/uL (0.1-0.6) 05/17/24 12:31
Absolute Eos (auto) 0.0 10^3/uL (0-0.7) 05/17/24 12:
Absolute Basos (auto) 0.0 10^3/uL (0-0.2) 05/17/24 12:31
Immature Gran % 0.4 % (0-0.5) 05/17/24 12:
Neutrophils % 79.1 % (42.2-75.2) H 05/17/24 12:
Lymphocytes % 14.6 % (20.5-51.1) L 05/17/24 12:
Monocytes % 5.5 % (1.7-9.3) 05/17/24 12:
Eosinophils % 0.2 % (0-6) 05/17/24 12:31
Basophils % 0.2 % (0-2) 05/17/24 12:
Creatinine 1.0 mg/dL (0.7-1.3) 05/18/24 06:57
Vital Signs
Vital Signs
Temp Pulse Resp BP Pulse Ox
98.1 F 60 16 109/62 92
05/18/24 15:00 05/18/24 15:00 05/18/24 15:00 05/18/24 15:00 05/18/24 15:00
[2024-05-18 23:48] VITALS: BP 123/73
[2024-05-19 01:02] LABS: APTT 108.1 Sec (23.4-35.0)
[2024-05-19 01:11] LABS: Troponin I < 0.012 ng/ml
[2024-05-19 07:00] VITALS: BP 118/64
--- NOTE | 2024-05-19 07:09 | VATNOTE ---
Called by RN to see pt with vanco infiltrate measuring 4 cm x 8 cm. Redness and mild swelling noted. IV discontinued and heat applied. Asked RN to notify DEPUTY COURT CLERK, but that this RN doesn't think it needs to be treated.
--- NOTE | 2024-05-19 07:28 | W.PN.HOSP.TC ---
Today's Communication/Plan
-
see bold
Assessment / Plan
Assessment / Plan
HPI: 74-year-old male with a past medical history PAD status post right SFA stent on 05/02/2023, CAD status post CABG and cardiac stent placement, hypertension, hyperlipidemia, anxiety/depression, BPH presents with acute onset of right calf and foot
pain while pain pickleball. Patient denies pain at rest, but states pain occurs when he walks. Associated symptoms include decreased sensation in the right foot, and his right foot is cool to the touch. He also reports spontaneous bruising of his
right arm a few weeks ago. He denies trauma. He reached out to Dr. Hernandez's office, and was told to stop taking his aspirin. He has continued his Plavix. No fever, no chest pain, no shortness of breath. No black or bloody stools. No hematuria.
No nausea, no vomiting.
#Critical limb ischemia of right lower extremity
#Peripheral artery disease
Status post right SFA stent on 05/02/[address] Hernandez
Appreciate vascular surgery input, for right lower extremity bypass Tues
Cardiology following for optimization
Continue heparin drip, Plavix, aspirin, statin
#Right upper extremity ecchymosis
Denies injury, denies trauma
Platelets are normal, coag profile normal, unclear etiology
Appreciate hematology input, unclear etiology, antiphospholipid antibody panel ordered
#Transient chest pain
Likely musculoskeletal
EKG negative, troponins negative
#Sinus bradycardia
No symptoms, monitor
#Coronary artery disease status post CABG and stent placement
Continue statin, aspirin, Plavix
Cardiology following for optimization
#Hyperkalemia
Resolved
#Anxiety/depression
Continue SSRI
#BPH
Continue Flomax
DVT prophylaxis�heparin drip
Full code
Total time spent to see the patient on the floor, examine the patient, review data and lab results, discuss treatment plan with patient, nursing staff around 42 minutes.
Physical Exam
General: No acute distress
HEENT: Normocephalic, Atraumatic, EOMI, MMM
Respiratory: Clear to Auscultation bilaterally
Cardiac: Normal S1/S2, Regular Rate and Rhythm
GI: Soft, Nontender, Nondistended, Normal Bowel Sounds
Extremities: No Clubbing, Cyanosis, or Edema
Scattered ecchymosis of right upper extremity noted
Neuro: Nonfocal/Grossly Intact
Psych: Calm, Cooperative
Derm: No Visible lesions
Anticipated Discharge: > 48 hours
Subjective/Interval History
-
Date of Service: May 19, 2024
Patient had some right foot pain with ambulation. He also had some chest pain that was reproducible, resolved currently. No fever, no vomiting.
Objective Data
-
Labs:
Laboratory Results
05/19/24 05/19/24
00:41 07:09
WBC Pending
Hgb Pending
Hct Pending
Plt Count Pending
APTT 108.1 H Pending
Sodium Pending
Potassium Pending
Chloride Pending
Carbon Dioxide Pending
BUN Pending
Creatinine Pending
Glucose Pending
Calcium Pending
Vital Signs:
Vital Signs
Temp Pulse Resp BP Pulse Ox
97.5 F 58 16 123/73 95
05/18/24 23:48 05/18/24 23:48 05/18/24 23:48 05/18/24 23:48 05/18/24 23:48
I&O
05/18/24 05/19/24 05/20/24
06:59 06:59 06:59
Intake Total 480 / 480 1320 / 1320
Output Total 1025 / 1025
Balance 480 / 480 295 / 295
[2024-05-19 07:29] LABS: Hematocrit 48.4 % (39.0-52.0); Hemoglobin 16.5 g/dL (13.0-18.0); Mean Corp Hgb Conc. 34.1 g/dL (33.0-37.0); Mean Corpuscular Hgb 29.2 pg (27.0-31.0); Mean Corpuscular Volume 85.5 fL (80.0-94.0); Mean Platelet Volume 9.4 fL (7.4-10.4); Platelet Count 210 10^3/uL (130-400); Red Blood Cell Count 5.66 10^6/uL (4.70-6.10); Red Cell Dist. Width 13.2 % (11.5-14.5); White Blood Cell Count 6.6 10^3/uL (4.8-10.8)
[2024-05-19] MEDS: ASPIR LOW (ENTERIC COATED) 81 MG PO (07:55)
[2024-05-19 07:57] LABS: Blood Urea Nitrogen 18 mg/dl (9-20); Calcium 9.6 mg/dl (8.4-10.2); Carbon Dioxide 29 mmol/L (22-30); Chloride 105 mmol/L (98-107); Estimated Creatinine Clearance 59 ml/min; Glucose 107 mg/dl (70-99); Potassium 4.5 mmol/L (3.5-5.1); Sodium 143 mmol/L (135-145); eGFR > 60.00
[2024-05-19 07:59] LABS: Troponin I < 0.012 ng/ml
[2024-05-19 09:51] LABS: Troponin I < 0.012 ng/ml
[2024-05-19] MEDS: SENOKOT-S 2 TABLET PO ×2 (10:00→21:19)
--- NOTE | 2024-05-19 11:02 | PTCARENOTE ---
pt co no bm.. aware and given stool softener. Telemetry ordered and found to hav sinus leyla at 55. Inspection of chest wall found blue area on chest where he was complaining of tenderness yesterday. It appeared like a new bruise however
after inspecting it further it wiped off with wet cloth. was water color painting with the same blue color.
[2024-05-19 13:48] LABS: Troponin I < 0.012 ng/ml
[2024-05-19 13:52] LABS: APTT 101.2 Sec (23.4-35.0)
[2024-05-19 15:00] VITALS: BP 130/65
[2024-05-19] MEDS: HEPARIN 25000 UNITS/250 ML IV (16:29)
[2024-05-19] MEDS: LIPITOR 20 MG PO (17:35)
[2024-05-19] MEDS: FLOMAX 0.4 MG PO (17:35)
[2024-05-19] MEDS: ZETIA 10 MG PO (17:35)
[2024-05-19 19:00] VITALS: BP 124/66
[2024-05-19] MEDS: ZOLOFT 25 MG PO (21:19)
[2024-05-19] MEDS: PLAVIX 75 MG PO (21:19)
--- NOTE | 2024-05-19 21:46 | PTCARENOTE ---
Previous staff have documented that this pt has an NGT. This pt does not and has not had an NGT this admission.
[2024-05-19 23:00] VITALS: BP 125/65
[2024-05-20 03:00] VITALS: BP 118/67
[2024-05-20 06:53] LABS: APTT 114.1 Sec (23.4-35.0)
[2024-05-20 07:00] VITALS: BP 126/67
--- NOTE | 2024-05-20 07:37 | W.PN.UPDATE ---
Update Note
Progress Note Update
Patient has decided to proceed with PTAB/DETOUR.
Will add on for 05/21/24
NPO after midnight
Heparin drip off regional account director to the OR
Continue antiplatelet agents
Call with questions/concerns
Lizandro Stoner III, MD
[facility]
[phone] (fzpb)
[2024-05-20 07:55] LABS: Blood Urea Nitrogen 21 mg/dl (9-20); Calcium 9.6 mg/dl (8.4-10.2); Carbon Dioxide 27 mmol/L (22-30); Chloride 108 mmol/L (98-107); Estimated Creatinine Clearance 54 ml/min; Glucose 106 mg/dl (70-99); Potassium 4.9 mmol/L (3.5-5.1); Sodium 143 mmol/L (135-145); eGFR > 60.00
[2024-05-20] MEDS: ASPIR LOW (ENTERIC COATED) 81 MG PO (08:44)
[2024-05-20] MEDS: SENOKOT-S 2 TABLET PO (08:44)
--- NOTE | 2024-05-20 09:04 | W.PN.HOSP.TC ---
Today's Communication/Plan
-
NPO after MN for OR
Assessment / Plan
Assessment / Plan
HPI: 74-year-old male with a past medical history PAD status post right SFA stent on 05/02/2023, CAD status post CABG and cardiac stent placement, hypertension, hyperlipidemia, anxiety/depression, BPH presents with acute onset of right calf and foot
pain while pain pickleball. Patient denies pain at rest, but states pain occurs when he walks. Associated symptoms include decreased sensation in the right foot, and his right foot is cool to the touch. He also reports spontaneous bruising of his
right arm a few weeks ago. He denies trauma. He reached out to Dr. Hernandez's office, and was told to stop taking his aspirin. He has continued his Plavix. No fever, no chest pain, no shortness of breath. No black or bloody stools. No hematuria.
No nausea, no vomiting.
#Critical limb ischemia of right lower extremity
#Peripheral artery disease
Status post right SFA stent on 05/02/[address] Hernandez
Appreciate vascular surgery input, for right lower extremity bypass Tues
Cardiology following for optimization
Continue heparin drip, Plavix, aspirin, statin
#Right upper extremity ecchymosis
Denies injury, denies trauma
Platelets are normal, coag profile normal, unclear etiology
Appreciate hematology input, unclear etiology, antiphospholipid antibody panel ordered
bruising improving
#Transient chest pain
Likely musculoskeletal
EKG negative, troponins negative
#Sinus bradycardia
No symptoms, monitor
#Coronary artery disease status post CABG and stent placement
Continue statin, aspirin, Plavix
seen by cardiology for optimization
intermittent Bradycardia
-baseline patient in 50's
-ambulates dailey without dizziness
-brief period HR high 30's without symptoms, not on AV douglas blocking agents likely related to sleep/brief vagal reaction
#Hyperkalemia
Resolved
#Anxiety/depression
Continue SSRI
#BPH
Continue Flomax
DVT prophylaxis�heparin drip
Full code
Total time spent to see the patient on the floor, examine the patient, review data and lab results, discuss treatment plan with patient, nursing staff around 42 minutes.
Physical Exam
General: No acute distress
HEENT: Normocephalic, Atraumatic, EOMI, MMM
Respiratory: Clear to Auscultation bilaterally
Cardiac: Normal S1/S2, Regular Rate and Rhythm
GI: Soft, Nontender, Nondistended, Normal Bowel Sounds
Extremities: No Clubbing, Cyanosis, or Edema
Scattered ecchymosis of right upper extremity noted
Neuro: Nonfocal/Grossly Intact
Psych: Calm, Cooperative
Derm: No Visible lesions
Anticipated Discharge: > 48 hours
Subjective/Interval History
-
Date of Service: May 20, 2024
no lightheadedness or dizziness
chest discomfort resolved (MSK pain yesterday)
Objective Data
-
Labs:
Laboratory Results
05/20/24 05/20/24
06:29 13:15
APTT 114.1 H Pending
Sodium 143
Potassium 4.9
Chloride 108 H
Carbon Dioxide 27
BUN 21 H
Creatinine 1.2
Glucose 106 H
Calcium 9.6
Vital Signs:
Vital Signs
Temp Pulse Resp BP Pulse Ox
97.4 F 59 18 126/67 93
05/20/24 07:00 05/20/24 07:00 05/20/24 07:00 05/20/24 07:00 05/20/24 07:00
I&O
05/19/24 05/20/24 05/21/24
06:59 06:59 06:59
Intake Total 1320 / 1320 948 / 948
Output Total 1025 / 1025 400 / 400
Balance 295 / 295 548 / 548
Review of Systems
-
History Source: Patient
All other systems: Reviewed and negative
Data Reviewed
-
Diagnostic Radiology: Report Reviewed by me
Labs: Labs Reviewed by me
--- NOTE | 2024-05-20 09:08 | PTCARENOTE ---
patient with episode of bradycardia with heart rate dropping to 39 at rest at 07[address]. asymptomatic. Dr[address] Armas made aware and EKG ordered and done. seen at bedside by Dr. Armas, will continue to monitor.
[2024-05-20 09:21] LABS: Magnesium 1.9 mg/dl (1.6-2.3)
[2024-05-20] MEDS: HEPARIN 25000 UNITS/250 ML IV (10:40)
[2024-05-20 11:00] VITALS: BP 132/69
[2024-05-20 13:23] LABS: Hematocrit 46.8 % (39.0-52.0); Hemoglobin 16.2 g/dL (13.0-18.0); Mean Corp Hgb Conc. 34.6 g/dL (33.0-37.0); Mean Corpuscular Hgb 29.8 pg (27.0-31.0); Mean Corpuscular Volume 86.2 fL (80.0-94.0); Mean Platelet Volume 9.3 fL (7.4-10.4); Platelet Count 171 10^3/uL (130-400); Red Blood Cell Count 5.43 10^6/uL (4.70-6.10); Red Cell Dist. Width 13.2 % (11.5-14.5); White Blood Cell Count 6.3 10^3/uL (4.8-10.8)
[2024-05-20 13:35] LABS: APTT 91.7 Sec (23.4-35.0)
[2024-05-20 15:00] VITALS: BP 120/60
[2024-05-20] MEDS: LIPITOR 20 MG PO (17:38)
[2024-05-20] MEDS: FLOMAX 0.4 MG PO (17:38)
[2024-05-20] MEDS: ZETIA 10 MG PO (17:38)
--- NOTE | 2024-05-20 18:00 | PTCARENOTE ---
patient reports pain only with ambulation in right foot, no pain at rest, right foot with decreased sensation. tolerating diet, independent in room and hallway, vss, heparin drip infusing without difficulty, for planned PTAD/DETOUR procedure with
Dr. Stoner tomorrow, will continue to monitor.
[2024-05-20 19:00] VITALS: BP 116/64
[2024-05-20 21:00] VITALS: BMI 28.2
[2024-05-20] MEDS: ZOLOFT 25 MG PO (21:05)
[2024-05-20] MEDS: SENOKOT-S PO ×2 (21:05→21:06)
[2024-05-20] MEDS: PLAVIX 75 MG PO (21:05)
[2024-05-20 23:38] VITALS: BP 121/62
[2024-05-21] VITALS (35 sets, daily range): BP systolic 100–144; BP diastolic 53–77; BMI 27.8
[2024-05-21 07:09] LABS: Hematocrit 48.1 % (39.0-52.0); Hemoglobin 16.3 g/dL (13.0-18.0); Mean Corp Hgb Conc. 33.9 g/dL (33.0-37.0); Mean Corpuscular Hgb 29.4 pg (27.0-31.0); Mean Corpuscular Volume 86.8 fL (80.0-94.0); Mean Platelet Volume 9.3 fL (7.4-10.4); Platelet Count 181 10^3/uL (130-400); Red Blood Cell Count 5.54 10^6/uL (4.70-6.10); Red Cell Dist. Width 13.2 % (11.5-14.5); White Blood Cell Count 6.3 10^3/uL (4.8-10.8)
[2024-05-21 07:31] LABS: Blood Urea Nitrogen 20 mg/dl (9-20); Calcium 9.6 mg/dl (8.4-10.2); Carbon Dioxide 28 mmol/L (22-30); Chloride 107 mmol/L (98-107); Estimated Creatinine Clearance 54 ml/min; Glucose 110 mg/dl (70-99); Potassium 5.1 mmol/L (3.5-5.1); Sodium 142 mmol/L (135-145); eGFR > 60.00
[2024-05-21] MEDS: HEPARIN 25000 UNITS/250 ML IV (08:26)
[2024-05-21] MEDS: ASPIR LOW (ENTERIC COATED) 81 MG PO (08:29)
[2024-05-21] MEDS: SENOKOT-S PO (08:45)
--- NOTE | 2024-05-21 09:54 | CM ---
Reviewed chart, patient noted to be ambulatory in halls and room, at baseline. Will return home when stable.
Plan: Case management will continue to follow and assist with discharge planning. Home when medically cleared.
--- NOTE | 2024-05-21 10:31 | W.PN.HOSP.TC ---
Today's Communication/Plan
-
NPO for OR
Assessment / Plan
Assessment / Plan
HPI: 74-year-old male with a past medical history PAD status post right SFA stent on 05/02/2023, CAD status post CABG and cardiac stent placement, hypertension, hyperlipidemia, anxiety/depression, BPH presents with acute onset of right calf and foot
pain while pain pickleball. Patient denies pain at rest, but states pain occurs when he walks. Associated symptoms include decreased sensation in the right foot, and his right foot is cool to the touch. He also reports spontaneous bruising of his
right arm a few weeks ago. He denies trauma. He reached out to Dr. Hernandez's office, and was told to stop taking his aspirin. He has continued his Plavix. No fever, no chest pain, no shortness of breath. No black or bloody stools. No hematuria.
No nausea, no vomiting.
#Critical limb ischemia of right lower extremity
#Peripheral artery disease
Status post right SFA stent on 05/02/[address] Hernandez
Appreciate vascular surgery input, for right lower extremity bypass today, he is NPO
Cardiology following for optimization
Continue heparin drip, Plavix, aspirin, statin
#Right upper extremity ecchymosis
Denies injury, denies trauma
Platelets are normal, coag profile normal, unclear etiology
Appreciate hematology input, unclear etiology, antiphospholipid antibody panel ordered
bruising improving
#Transient chest pain
Likely musculoskeletal
EKG negative, troponins negative
#Sinus bradycardia
No symptoms, monitor
#Coronary artery disease status post CABG and stent placement
Continue statin, aspirin, Plavix
seen by cardiology for optimization
intermittent Bradycardia
-baseline patient in 50's
-ambulates dailey without dizziness
-brief period HR high 30's without symptoms, not on AV douglas blocking agents likely related to sleep/brief vagal reaction -
HR 60's this AM
#Hyperkalemia
Resolved
#Anxiety/depression
Continue SSRI
#BPH
Continue Flomax
DVT prophylaxis�heparin drip
Full code
Total time spent to see the patient on the floor, examine the patient, review data and lab results, discuss treatment plan with patient, nursing staff around 42 minutes.
Anticipated Discharge: 24 - 48 hours
Subjective/Interval History
-
Date of Service: May 21, 2024
feeling well
denies chest pain
RLE pain when walking yesterday
Objective Data
-
Labs:
Laboratory Results
05/21/24 05/21/24
06:35 06:36
WBC 6.3
Hgb 16.3
Hct 48.1
Plt Count 181
APTT 79.0 H
Sodium 142
Potassium 5.1
Chloride 107
Carbon Dioxide 28
BUN 20
Creatinine 1.2
Glucose 110 H
Calcium 9.6
Vital Signs:
Vital Signs
Temp Pulse Resp BP Pulse Ox
98.4 F 55 17 114/66 95
05/21/24 07:20 05/21/24 07:20 05/21/24 07:20 05/21/24 07:20 05/21/24 07:20
I&O
05/20/24 05/21/24 05/22/24
06:59 06:59 06:59
Intake Total 948 / 948 1356 / 1356 636 / 636
Output Total 400 / 400 600 / 600
Balance 548 / 548 1356 / 1356 36 / 36
Review of Systems
-
History Source: Patient
All other systems: Reviewed and negative
Physical Exam
-
General: No Apparent Distress
HEENT: PERRLA
Respiratory: Clear to Auscultation; Negative Wheezes
Cardiac: Regular Rhythm and S1/S2
GI: Soft, Nontender and Nondistended
Musculoskeletal: No Edema
Skin: Warm and Dry; Negative Rash
Neuro: AO x 3
Psych: Calm
Data Reviewed
-
Diagnostic Radiology: Report Reviewed by me
Labs: Labs Reviewed by me
--- NOTE | 2024-05-21 12:01 | W.SUR.PREOP ---
Pre-Operative Surgical Note
-
I have examined this patient prior to the performance of the scheduled procedure.
The patient's condition is unchanged from the time of the current History and
Physical and the patient is able to undergo the scheduled procedure.
--- NOTE | 2024-05-21 12:35 | PTCARENOTE ---
Report given to slab off mill tender. Patient sent to slab off mill tender at 1237. Spouse at bedside.
--- NOTE | 2024-05-21 13:21 | PTCARENOTE ---
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 Patient and spouse oriented to room. Heparin continues to run as ordered. Call segal in place. Assessment completed as documented. Tele-SB. Verbalizes c/o right lower extremity
discomfort-10/28. Comfort measures provided. Verbalizes no needs at this time.
[2024-05-21 15:21] LABS: ACT-LR - POC 327 Seconds (116-155)
--- NOTE | 2024-05-21 16:21 | W.SUR.POST ---
Surgical Immediate Post Op
Note
Pre Op Diagnosis: PAD
Post Op Diagnosis: PAD
Procedure Performed: RLE DETOUR
Primary Surgeon: Herbie
Anesthesia: General
Estimated Blood Loss: <2cc
Fluids: see anesthesia flow sheet
Drains/Shunts: none
Specimens/Cultures: none
Doppler/Duplex/Angio (Y/N): Y
Complications: none
Operative Findings: successful detour
--- NOTE | 2024-05-21 16:29 | CON.INTV ---
Consultation
Consultation Request
Date/Time Consultation Requested: 05/21
Date/Time Consultation Performed: 05/21
Reason for Consultation: Critical care
Medical History
-
History of Present Illness:
History obtained from the chart and reviewing outpatient records. Patient is a 74-year-old male, admitted on 05/17/2024, with right SFA occlusion per imaging. Patient had acute onset of right foot pain, calf pain while playing pickle ball. Patient
has history of peripheral vascular disease, status post stent 05/02/2023 at [facility]. Of note patient has been on aspirin/Plavix therapy but aspirin was stopped due to recent bruising of the right upper extremity 2 weeks prior. Venous
bypass was not an option due to lack of optimal venous conduit. Patient was seen by vascular surgery and DETOUR bypass was considered for which he underwent successfully 05/21/2024. We are asked to help from critical care standpoint
Patient evaluated in the PACU. Presently denies chest pain, shortness of breath, nausea, right leg pain. Lying flat, comfortable
.
PMH: Peripheral vascular disease with stent placement SFA 05/02/2023. History of right SFA stent 2014 ago at [facility]. Coronary disease with history of bypass surgery/stent, BPH, hypertension, hypercholesterolemia, history of ICD,
cardiomyopathy with a EF 45% in the past, sleep apnea, restless leg syndrome. History of left knee surgery
Past Medical History
Past Medical History: None (See above)
Past Surgical History: None (See above)
Social History
Tobacco: Former Smoker (Quit 40 years ago)
Alcohol: Occasional
Drug: None
Personal:
Living: With Family
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
Family History
Family History: Other (Father with history of lung and liver cancer, mother with history of leukemia both . Sister from lung cancer age 55. No history of thromboembolic disease)
Allergies / Home Medications
Allergies
Allergy/AdvReac Type Severity Reaction Status Date / Time
codeine Allergy UNSURE OF Verified 05/21/24 13:33
REACTION
pollen extracts Allergy Unknown Verified 05/21/24 13:33
Home Medications
�Medication �Instructions �Recorded �Confirmed �Last Taken �Type
coQ10 (ubiquinol) 100 mg capsule 300 mg PO QPM Supplement 05/02/23 05/17/24 05/16/24 History
ezetimibe 10 mg tablet (Zetia) 10 mg PO QPM High Cholesterol 05/02/23 05/17/24 05/16/24 History
simvastatin 20 mg tablet (Zocor) 20 mg PO HS High Cholesterol 05/02/23 05/17/24 05/16/24 History
tamsulosin 0.4 mg capsule 0.4 mg PO QPM Urinary Issue 05/02/23 05/17/24 05/16/24 History
clopidogrel 75 mg tablet 75 mg PO HS Blood Clot 05/17/24 05/17/24 05/16/24 History
Prevention/Tx
sertraline 50 mg tablet 25 mg PO HS Depression 05/17/24 05/17/24 05/16/24 History
Review of Systems
-
All other systems: Negative unless noted
Vitals / Labs / Diagnostic Testing
Vital Signs
Temp Pulse Resp BP Pulse Ox
97.7 F 57 18 144/77 96
05/21/24 13:10 05/21/24 13:10 05/21/24 13:10 05/21/24 13:10 05/21/24 13:10
Laboratory Results
05/20/24 05/21/24
19:37 06:36
APTT 87.0 H 79.0 H
Diagnostic Testing:
Physical Exam
-
HEENT: Normocephalic and Anicteric
Cardiovascular: S1/S2, Regular Rhythm, Murmur (n), Rub (n), Peripheral Edema (n) and Other (Right foot cool, capillary refill around 3 seconds, no cyanosis. Ankle arterial bandage in place)
Respiratory: Clear, Wheeze (n), Rales (n) and Rhonchi (n)
GI: Soft, Non Distended and Non Tender
Neurology: Awake, Alert (Still lethargic but answering questions) and No Motor Deficits (Moves all extremities)
Skin: Other (No skin rash) and Other (Mild subcutaneous bruising left superior groin)
General: Comfortable
Assessment
-
74-year-old male with history of peripheral vascular disease prior right SFA stent April 2023 presents with acute right calf and foot pain found to have occluded SFA, underwent DETOUR bypass 05/21/2024 due to lack of optimal venous bypass. We are
asked to help from critical care standpoint 05/21/2024
Right lower extremity critical ischemia
Occluded SFA stent
S/p DETOUR bypass 05/21/2024
Conditions present prior to admission
Hypertension/hyperlipidemia
History of coronary disease, bypass surgery
Stent placement in the past
Obstructive sleep apnea, total index 32, desaturation fiorella 84%
Last seen 2019 (SDG)
BPH
History of pancreatitis
Restless leg syndrome
Family history of liver cancer, lung cancer, leukemia
Father, sister, mother
Plan/recommendations
At this time, patient remains critically ill but stable
Hemodynamically stable, patient is without complaints
Right foot is cool but pulses are palpable, trace
Right groin pulse 1+
Left groin with mild superficial hematoma/bruise superiorly
Moving forward
Continue with management per vascular surgery
Plavix/aspirin
Xarelto has been ordered for tonight. Patient was on heparin drip, now discontinued
Follow hemoglobin
Vascular checks
Follow urine output
Patient with known sleep apnea
Will need to clarify whether he is using CPAP
Will empirically order BiPAP 10/5 to be used as needed
Reviewed with PACU nursing
We will follow
TCCT 31 min
--- NOTE | 2024-05-21 17:08 | OR.RPT ---
Operative Report
Operative Report
Date of Operation: 05/21/2024
Pre Op Diagnosis: Critical limb threatening ischemia with recurrent thrombosis of right superficial femoral artery stents
Post Op Diagnosis: Critical limb threatening ischemia with recurrent thrombosis of right superficial femoral artery stents
Procedure:
1.) Percutaneous transmural artery bypass using the DETOUR system (conduit through right femoral vein to popliteal artery)
2.) Endovenous femoropopliteal arterial revascularization with transcatheter placement of stent grafts:
Overlapping TORUS stent grafts (distal to proximal):
6 mm x 200 mm (distal)
6.7 mm x 200 mm
6.7 mm x 150 mm (proximal)
3.) Right lower extremity venogram
4.) Ultrasound-guided percutaneous access to the right posterior tibial tibial vein
5.) Ultrasound-guided percutaneous access to the left common femoral artery
6.) ProGlide closure of the left common femoral artery access
Surgeon: Lizandro Stoner III, MD
Anesthesia: General
Complications: None
Estimated Blood Loss: 25 cc
Fluoroscopy:
32.4 min
279 mGy
58.13 DAP
History and Indications for Procedure: 74-year-old male with recurrent thrombosis of the right superficial femoral artery stents. He presented with critical limb threatening ischemia. We brought him to the operating room for a percutaneous
transmural artery bypass of the right lower extremity.
Procedure in Detail: Skyler Aleman was correctly identified and placed supine on the operating table. After adequate induction of anesthesia the bilateral groins as well as the right lower extremity including the calf, ankle and foot were prepped
and draped in the usual sterile fashion. Preoperative antibiotics were administered. A timeout procedure was performed with the nursing and anesthesia staff confirming the patient's identity as well as the nature and laterality of the procedure.
The left common femoral artery was identified under ultrasound guidance. The artery was patent. The superior and inferior aspects of the femoral head were identified with radiographic guidance and marked at the skin level. The proposed puncture site
was infiltrated with local anesthesia. We saved a copy of the ultrasound image to the medical record. Under ultrasound guidance we accessed the left common femoral artery with a micropuncture needle and upsized to a 5 Fr sheath over a Bentson wire.
The wire and a Shepherds hook flush catheter were advanced into the distal abdominal aorta. The right common iliac artery followed by the external iliac artery were selected with a Glidewire and the Chavarria's hook catheter. The wire was exchanged
out for a short floppy tip Amplatz wire. An 8 Tristanian 55 cm sheath was then inserted over the Amplatz wire and the radiopaque tip was advanced to the right femoral head.
Ultrasound-guided percutaneous venous access was achieved in the right posterior tibial tibial vein at the ankle. A 6 Tristanian sheath was then inserted over a Bentson wire. The Bentson wire was easily advanced to the proximal right thigh. A
venogram was performed demonstrating patency of the popliteal vein and femoral vein with no filling defects or stenosis identified..
Systemic heparin was administered.
A 6 Tristanian EnSnare catheter was inserted through the venous sheath and advanced over the Bentson wire to the proximal thigh. The EnSnare was then inserted through the catheter to the proximal thigh.
Under roadmap guidance the right superficial femoral artery was selected with a Quickcross and Glidewire. I then exchanged out for a 0.014 grand slam wire and positioned this in the superficial femoral artery.
Through the 8 Tristanian sheath the ENDOCROSS device was inserted over the 0.014 wire and advanced into the SFA, 3 cm distal to the femoral bifurcation. The ENDOCROSS was oriented and fired a single time into the femoral vein, creating the proximal
anastomosis. A 300 cm 0.014 wire was advanced through the back end of the ENDOCROSS device and into the vein. The wire in the femoral vein was snared and then externalized through the 6 Tristanian venous sheath.
The ENDOCROSS was then removed from the 8 Tristanian sheath and re-prepped on the back table. A 4 mm x 40 mm angioplasty balloon was then advanced over the 0.014 wire and used to dilate the proximal arterial/venous anastomosis. TheENDOCROSS was once
again advanced over the 0.014 wire, through the proximal anastomosis, into the vein and positioned distal to the occlusive disease. An arteriogram was then performed through the 8 Tristanian sheath to visualize the reconstituted arterial segment.
The ENDOCROSS was oriented and deployed 1 time before we successfully gained access to the popliteal artery. The Glidewire advantage 0.014 wire was advanced through the popliteal artery and into the peroneal artery to maximize wire purchase. The
ENDOCROSS was removed over the wire. A 4 mm x 40 mm angioplasty balloon was advanced over the 0.014 wire and across the distal venous/artery anastomosis. Angioplasty was performed on the distal anastomosis as well as the proximal anastomosis once
again.
Next, telescoped 0.018 and 0.035 CXI catheters were advanced together over the 0.014 wire and into the popliteal artery. The smaller CXI catheter and the 0.014 wire were removed. A Supra Core 0.035 wire was advanced through the CXI and positioned
in the below-knee popliteal artery.
The first 6 mm x 200 mm TORUS stent graft was placed in the desired location, providing 3 cm of distal landing zone in the popliteal artery. The length of distal landing zone was confirmed using external radiopaque measuring tape. The stent graft
was deployed and the delivery system removed. The second stent, 6.7 mm x 200 mm TORUS stent graft was placed in the desired location, with 6 cm of overlap into the first stent. The stent was deployed in the desired location and the delivery system
removed over the wire. An arteriogram was then performed under magnification view to clearly identify the femoral bifurcation, proximal superficial femoral artery and profunda femoral artery origin. The final stent, a 6.7 mm x 200 mm TORUS stent
graft was placed in the desired location, with 6 cm of overlap into the prior stent and carefully deployed in the desired location with the proximal end of the stent 2 mm above the proximal edge of the SFA/profunda femoral artery bifurcation. The
delivery system was removed. The entire TORUS stent graft bypass was postdilated with a 6 mm x 200 mm angioplasty balloon for the distal segments and a 7 mm x 200 mm angioplasty balloon for the mid and proximal segment. This was performed distal
to proximal and focused in particular on the anastomotic sites and all areas of overlap.
A final arteriogram was performed which demonstrated an outstanding technical result. The common femoral artery and profunda femoral artery were widely patent. The TORUS stent graft bypass was widely patent with good flow and no areas of filling
defects or stenosis. The popliteal artery runoff distally was widely patent and brisk. Tibial artery disease was identified. The anterior tibial artery was patent with somewhat sluggish flow and appeared to occlude at the distal ankle. The
tibioperoneal trunk, peroneal artery and posterior tibial artery were patent. The posterior tibial artery was the dominant runoff vessel which continued across the ankle and into the foot to form plantar branches. A completion venogram was also
performed and confirmed flow through a patent femoral femoral vein.
Satisfied with this result we then concluded the procedure. The 8 Tristanian sheath was pulled back over the wire into the left external iliac artery. The wire was pulled back to the aortic bifurcation and readvanced into the distal abdominal aorta.
A single Pro-glide closure device was advanced over the wire through the femoral artery access and fired. The knots were secured, the wire was removed and hemostasis was achieved. Protamine was administered. Direct manual pressure was held over
the arterial puncture site for an additional 10 minutes. A sterile dressing was applied
Manual pressure was applied to the venous access site after removal of the 6 Tristanian sheath. Following manual pressure there was still some oozing from the venous puncture site. Therefore a large TR band was applied directly over the puncture site
and inflated with 10 cc. Hemostasis was achieved. The patient was taken to the recovery room with the TR band inflated. There was a palpable posterior tibial pulse at the ankle, distal to the TR band.
The patient tolerated the procedure well. He was taken to the recovery room in stable condition.
Attestation: I was present and responsible for the entire procedure
Signed:
Lizandro Stoner III, MD
[facility] Vascular Surgery
[phone] (tcou)
[2024-05-21 17:28] LABS: Hematocrit 43.2 % (39.0-52.0); Hemoglobin 14.8 g/dL (13.0-18.0); Mean Corp Hgb Conc. 34.3 g/dL (33.0-37.0); Mean Corpuscular Hgb 29.2 pg (27.0-31.0); Mean Corpuscular Volume 85.4 fL (80.0-94.0); Mean Platelet Volume 9.8 fL (7.4-10.4); Platelet Count 152 10^3/uL (130-400); Red Blood Cell Count 5.06 10^6/uL (4.70-6.10); Red Cell Dist. Width 13.3 % (11.5-14.5)
[2024-05-21 17:37] LABS: INR 1.16; PT 14.9 Sec (11.4-14.6)
[2024-05-21 17:38] LABS: APTT 30.9 Sec (23.4-35.0)
[2024-05-21 17:49] LABS: Blood Urea Nitrogen 15 mg/dl (9-20); Calcium 8.7 mg/dl (8.4-10.2); Carbon Dioxide 25 mmol/L (22-30); Chloride 106 mmol/L (98-107); Estimated Creatinine Clearance 65 ml/min; Glucose 105 mg/dl (70-99); Potassium 4.2 mmol/L (3.5-5.1); Sodium 141 mmol/L (135-145); eGFR > 60.00
[2024-05-21] MEDS: NSS 1000 IV (18:20)
[2024-05-21] MEDS: FLOMAX 0.4 MG PO (18:20)
[2024-05-21] MEDS: LIPITOR 20 MG PO (18:23)
[2024-05-21] MEDS: ZETIA 10 MG PO (18:23)
--- NOTE | 2024-05-21 18:45 | PTCARENOTE ---
Pt received via bed from PACU at 1805. Pt awake and answering all questions appropriately. Denies c/o pain or SOB. On RA w/ POx 95%. Lt groin site checked with SEROLOGY TEACHER and verified unchanged in appearance. Small soft hematoma noted to Lt groin site-
edges marked. Gauze dressing intact to Rt lateral ankle- no shadow drainage noted. Doppler PT/DP pulses bilaterally. Rt foot slightly cooler than Lt foot- unchanged in temp per SEROLOGY TEACHER. Pt reports intact sensation and movement to Rt LE. Bilateral
breath sounds clear, bowel sounds present x4 quad. Pt denies nausea. Sips of water w/ ordered meds. Xarelto order clarified w/ ECook RN- to hold until seen by Vascular in AM.
[2024-05-21 19:16] LABS: Magnesium 1.8 mg/dl (1.6-2.3)
[2024-05-21] MEDS: PLAVIX 75 MG PO (21:03)
[2024-05-21] MEDS: SENOKOT-S 2 TABLET PO (21:03)
[2024-05-21] MEDS: ZOLOFT 25 MG PO (21:03)
[2024-05-22] VITALS (13 sets, daily range): BP systolic 90–129; BP diastolic 52–77; BMI 28.2
--- NOTE | 2024-05-22 00:43 | PTCARENOTE ---
systems reviewed, neurovascular checks per worklist, pedal pulses improving from present with doppler to weak on palpation, R ankle surgical site dry and intact, L groin site soft hematoma resolving, call segal within reach, otherwise refer to
documentation
--- NOTE | 2024-05-22 03:48 | PTCARENOTE ---
B/L LE pulses present--weak but palpable, warm with equal sensation. LLE pale, RLE pink. L groin site bruised--soft to palpation, tender.
[2024-05-22 04:02] LABS: Hematocrit 42.1 % (39.0-52.0); Hemoglobin 14.6 g/dL (13.0-18.0); Mean Corp Hgb Conc. 34.7 g/dL (33.0-37.0); Mean Corpuscular Volume 86.6 fL (80.0-94.0); Mean Platelet Volume 9.4 fL (7.4-10.4); Platelet Count 158 10^3/uL (130-400); Red Blood Cell Count 4.86 10^6/uL (4.70-6.10); Red Cell Dist. Width 13.2 % (11.5-14.5); White Blood Cell Count 9.5 10^3/uL (4.8-10.8)
[2024-05-22 04:11] LABS: INR 1.16; PT 14.9 Sec (11.4-14.6)
[2024-05-22 04:12] LABS: APTT 28.8 Sec (23.4-35.0)
[2024-05-22 04:25] LABS: Blood Urea Nitrogen 19 mg/dl (9-20); Calcium 8.6 mg/dl (8.4-10.2); Carbon Dioxide 23 mmol/L (22-30); Chloride 110 mmol/L (98-107); Estimated Creatinine Clearance 65 ml/min; Glucose 137 mg/dl (70-99); Potassium 4.5 mmol/L (3.5-5.1); Sodium 140 mmol/L (135-145); eGFR > 60.00
--- NOTE | 2024-05-22 07:43 | W.PN.VS ---
Addendum entered and electronically signed by MELONIE Lam 05/22/24 10:07:
Patient will continue Xarelto 20mg PO daily, Aspirin 81mg PO daily, and Plavix 75mg PO daily for 30 days due to increase risk of stent thrombosis and DVT during the immediate postoperative period. After 30 days he will be switched to compass
protocol of 81mg PO daily with 2.5mg of Xarelto BID, and Plavix will be discontinued.
Addendum entered and electronically signed by Kervin Hernandez MD 05/22/24 07:53:
Seen and examined with JERROD Mullen. Agree with findings as noted below. Left groin soft. No hematoma. Mild to moderate ecchymosis, no pulsatile mass. Right lower extremity soft. No significant edema thigh or calf. Foot is warm with 1+ palpable
DP, 2+ palpable PT pulse. Plan/as discussed and noted below. Hopefully discharge today. Xarelto, aspirin/Plavix.
Original Note:
Today's Communication / Plan
-
Seen and assessed with Dr. Hernandez
Assessment/Plan
-
POD 1 right detour
Plan:
-DC IV fluids
-Out of bed/ambulate
-Increase diet
-P.o. medications, resume Xarelto tonight
-Likely DC later today if meeting criteria
Subjective Data
-
Date of Service: May 22, 2024
Patient seen at bedside this a.m. with Dr. Hernandez. Patient offers no complaints at this time, no events overnight. Ankle and groin sites clean, dry, intact
Objective Data
-
Vital Signs
Temp Pulse Resp BP Pulse Ox
97.9 F 67 9 103/57 93
05/21/24 20:00 05/22/24 05:30 05/22/24 05:30 05/22/24 05:00 05/22/24 05:30
Intake and Output
05/21/24 05/22/2405/23/24
06:59 06:59 06:59
Intake Total 1356 / 1356 1516 / 1516
Output Total 1600 / 1600
Balance 1356 / 1356 -84 / -84
Intake:
Oral fluids 1200 / 1200 720 / 720
IV fluids (Total) 640 / 640
Nss 1,000 ml @ 80 mls/hr IV . 640 / 640
[id number] [facility] Rx#:[id number]
IV piggybacks 156 / 156 156 / 156
Output:
Urine, Stoner 200 / 200
Urine, Voided 1400 / 1400
Other:
Number of approximated MODERATE 5 1
amounts of urine
Lab Results
05/22/24 03:43
05/22/24 03:43
Calcium 8.6 mg/dl (8.4-10.2) 05/22/24 03:43
Magnesium 1.8 mg/dl (1.6-2.3) 05/21/24 17:19
Total Bilirubin 0.8 mg/dl (0.2-1.3) 05/17/24 12:31
AST 26 U/L (17-59) 05/17/24 12:31
ALT 14 U/L (0-50) 05/17/24 12:31
Alkaline Phosphatase 84 U/L (38-126) 05/17/24 12:31
Total Protein 6.3 g/dl (6.3-8.2) 05/17/24 12:31
Albumin 3.9 g/dl (3.5-5.0) 05/17/24 12:31
Physical Exam
-
AAOx3
No tachypnea
No tachycardia
Abdomen soft
Groin site and ankle site dressings clean dry and intact, no drainage or hematoma noted
Minimal ecchymosis at left groin site, soft
Palpable pulses
[2024-05-22] MEDS: SENOKOT-S 2 TABLET PO (07:50)
[2024-05-22] MEDS: ASPIR LOW (ENTERIC COATED) 81 MG PO (07:50)
--- NOTE | 2024-05-22 07:57 | W.PN.CD ---
Today's Communication / Plan
-
Maintain atorvastatin 20 mg daily.
Follow up antiphospholipid panel (as an outpatient).
Ambulate.
Outpatient lipid panel in 3 months.
Clarify outpatient antithrombotic regimen and duration with vascular surgery.
Stable for outpatient follow up from a cardiac perspective.
Thank you for this interesting consult. Signing off. Please call with questions.
Impression / Plan
-
Impression/Plan: 74 y/o male with HTN, HLD, CAD s/p CABG and prior PCI, mild ICMO (LVEF 45%), PAD s/p bilateral SFA stents with MOONER of LSFA stents, recent RSFA stent admitted with acute SFA occlusion, now s/p DETOUR femoropopliteal bypass for acute
CLI.
#Critical Limb Ischemia with recurrent thrombosis of RSFA stent
-Acute on chronic.
-S/P percutaneous femoropopliteal arterial transmural artery bypass (DETOUR - conduit through right femoral vein to popliteal artery) with overlapping endovenous stents (TORUS 6 x 200, 6.7 x 200, 6.7 x 150) with Dr. Stoner (05/21/2024).
-Antithrombotic therapy with DAPT (aspirin/clopidogrel) and rivaroxaban. I will ask vascular surgery for explicit clarification on duration of each therapy.
-Ambulate.
-Discharge planning per vascular surgery.
#CAD
-Chronic, stable.
-s/p CABG 2013, stable with patent grafts on cath in 2019.
-Antithrombotic therapy as noted above.
-Continue simvastatin, ezetimibe.
#ICMO
-Chronic, stable.
-LV EF 45-50%.
-Euvolemic.
-GDMT as hemodynamics will tolerate. Not on beta keaton due to symptomatic bradycardia.
#HLD/intolerance of rosuvastatin (mouth swelling)
-Chronic, stable.
-Tolerating simvastatin and ezetimibe as an outpatient.
-Total cholesterol = 121, LDL = 60, HDL = 35, Triglycerides = 133.
-Currently tolerating atorvastatin 20 mg daily and ezetimibe as an inpatient. I would favor continuing atorvastatin as an outpatient (as the patient will benefit from a high potency statin).
-Goal LDL < 55.
#RUE ecchymosis
-Acute, spontaneous, 05/02/24 ER visit.
-Ecchymosis is resolving.
-Hematology involved. Antiphospholipid antibody panel ordered/pending. If this is positive, hematology recommends transitioning to warfarin.
Subjective/Interval History:
S/P DETOUR procedure yesterday.
Weight stable.
Feels well.
DATA:
TTE, 08/01/2023:
CONCLUSIONS
Mildly reduced left ventricular systolic function.
Left ventricular ejection fraction is 45-50%.
Anteroseptal and inferoseptal hypokinesis.
Mild mitral regurgitation.
No prior study available for comparison.
Physical Exam
Vital Signs/Labs
Vital Signs
Temp Pulse Resp BP Pulse Ox
36.6 C 67 9 103/57 93
05/21/24 20:00 05/22/24 05:30 05/22/24 05:30 05/22/24 05:00 05/22/24 05:30
05/20/24 05/21/24 05/22/24
11:59 11:59 11:59
Actual Weight 88.195 kg 89.4 kg
05/22/24 03:43
05/22/24 03:43
PT 14.9 Sec (11.4-14.6) H 05/22/24 03:43
INR 1.16 05/22/24 03:43
APTT 28.8 Sec (23.4-35.0) 05/22/24 03:43
Magnesium 1.8 mg/dl (1.6-2.3) 05/21/24 17:19
Triglycerides 133 mg/dl (10-149) 08/31/24 06:57
LDL Cholesterol, Calc 60 mg/dl 05/18/24 06:57
VLDL Cholesterol, Calc 26 mg/dl (0-30) 05/18/24 06:57
HDL Cholesterol 35 mg/dl 05/18/24 06:57
LAB Results
05/19/24 05/19/24 05/19/24
07:09 09:19 13:07
Troponin I < 0.012 < 0.012 < 0.012
Physical Exam
Constitutional: No acute distress and Comfortable
EENT: Anicteric and Moist mucous membranes
Cardiovascular: Rhythm & rate is regular, Pedal edema is absent, JVD pressure is normal, S1S2 is normal and Murmur/rub/gallop absent
Respiratory: Respiratory effort normal, Lungs clear to auscul., Wheeze Absent, Crackles Absent and Rhonchi Absent
GI: Soft, Distention absent, Flat, Non tender and Normal bowel sounds
Neuro/Psych: AO x 3
Other: Cath Site (Left femoral access site is C/D/I.)
Data Reviewed
-
Date of Service: May 22, 2024
Medical Decision Making: Reviewed Test Results, Independent Historian Assessment, Test Interpretation and Review of Case with other Provider
EKG: Tracing Personally Visualized and interpreted and Report Reviewed by me
X-Ray/CT/US/MRI/NUC/PET: Image Personally Visualized and interpreted and Report Reviewed by me
Labs: Labs Reviewed by me
--- NOTE | 2024-05-22 07:57 | W.PN.INTV ---
Today's Communication / Plan
Recommendations
Continue care per vascular
Anticoagulation per vascular
Lip swelling with Lipitor, notified cardiology/vascular
Recommend follow-up in the sleep clinic. Information left in chart
Disposition efforts
Assessment
-
74-year-old male with history of peripheral vascular disease prior right SFA stent April 2023 presents with acute right calf and foot pain found to have occluded SFA, underwent DETOUR bypass 05/21/2024 due to lack of optimal venous bypass. We are
asked to help from critical care standpoint 05/21/2024
Right lower extremity critical ischemia
Occluded SFA stent
S/p DETOUR bypass 05/21/2024
Conditions present prior to admission
Hypertension/hyperlipidemia
History of coronary disease, bypass surgery
Stent placement in the past
Obstructive sleep apnea, total index 32, desaturation fiorella 84%
Last seen 2019 (SDG)
BPH
History of pancreatitis
Restless leg syndrome
Family history of liver cancer, lung cancer, leukemia
Father, sister, mother
Plan/recommendations
At this time, patient is without complaints. Observed ambulating without difficulty. Pulses intact, feet are warm.
Denies leg pain, foot pain with ambulation
Left groin with mild superficial hematoma/bruise superiorly, mild
Moving forward
Continue with management per vascular surgery
Plavix/aspirin/Xarelto has been ordered
Hemoglobin stable, urine output adequate
Patient with known sleep apnea
Patient does not use CPAP or BiPAP. Refused BiPAP overnight
Patient also complaining of mild lip swelling, thinks it is from Lipitor. He tolerates Zocor as outpatient
He had similar reaction to Crestor in the past
I contacted vascular and cardiology
May be better to discharge on prior simvastatin dose, defer to cardiology
Suggest follow-up with sleep clinic given the severity of his sleep apnea in the past. Information left in chart
Patient for discharge
Subjective Dataa
Subjective Data
Date of Service:
Date of Service: May 22, 2024
Subjective:
Patient is without complaints. Observed ambulating throughout the hallway. Denies shortness of breath, chest pain, nausea, leg pain or foot pain. He is complaining of some mild right lip swelling. Denies any shortness of breath.
Objective Data
Data Reviewed
Vital Signs / I&O / Oxygen:
Vital Signs
Temp Pulse Resp BP Pulse Ox
97.9 F 67 9 103/57 93
05/21/24 20:00 05/22/24 05:30 05/22/24 05:30 05/22/24 05:00 05/22/24 05:30
Intake and Output
05/21/24 05/22/24 05/23/24
06:59 06:59 06:59
Intake Total 1356 / 1356 1516 / 1516
Output Total 1600 / 1600
Balance 1356 / 1356 -84 / -84
SaO2 93
Physical Exam
General: Comfortable
HEENT: Normocephalic and Anicteric
Cardiovascular: S1-S2, Regular Rhythm, Murmur (n) and Rub (n)
Respiratory: Wheeze (n), Crackles (n), Rhonchi (n) and Non-Labored Respirations
GI: Soft, Non Distended and Non Tender
Neurology: Awake, Alert and No Motor Deficits
Skin: Good Color and Cyanosis (n)
Labs/Micro/Reports
Lab Data
05/22/24 03:43
05/22/24 03:43
Laboratory Results
05/21/24 05/21/24 05/22/24
06:36 17:19 03:43
PT 14.9 H 14.9 H
INR 1.16 1.16
APTT 79.0 H 30.9 28.8
--- NOTE | 2024-05-22 08:22 | W.PN.HOSP.TC ---
Today's Communication/Plan
-
possible discharge later today
Assessment / Plan
Assessment / Plan
HPI: 74-year-old male with a past medical history PAD status post right SFA stent on 05/02/2023, CAD status post CABG and cardiac stent placement, hypertension, hyperlipidemia, anxiety/depression, BPH presents with acute onset of right calf and foot
pain while pain pickleball. Patient denies pain at rest, but states pain occurs when he walks. Associated symptoms include decreased sensation in the right foot, and his right foot is cool to the touch. He also reports spontaneous bruising of his
right arm a few weeks ago. He denies trauma. He reached out to Dr. Hernandez's office, and was told to stop taking his aspirin. He has continued his Plavix. No fever, no chest pain, no shortness of breath. No black or bloody stools. No hematuria.
No nausea, no vomiting.
05/21/24
Procedure:
1.) Percutaneous transmural artery bypass using the DETOUR system (conduit through right femoral vein to popliteal artery)
2.) Endovenous femoropopliteal arterial revascularization with transcatheter placement of stent grafts:
Overlapping TORUS stent grafts (distal to proximal):
6 mm x 200 mm (distal)
6.7 mm x 200 mm
6.7 mm x 150 mm (proximal)
3.) Right lower extremity venogram
4.) Ultrasound-guided percutaneous access to the right posterior tibial tibial vein
5.) Ultrasound-guided percutaneous access to the left common femoral artery
6.) ProGlide closure of the left common femoral artery access
#Critical limb ischemia of right lower extremity
#Peripheral artery disease
Status post right SFA stent on 05/02/[address] Hernandez
Appreciate vascular surgery input
-s/p RLE bypass 05/21
-continue asa/plavix
-per vascular, start Xarelto this evening
-will order GI PPx
#Right upper extremity ecchymosis
Denies injury, denies trauma
Platelets are normal, coag profile normal, unclear etiology
Appreciate hematology input, unclear etiology, antiphospholipid antibody panel ordered
bruising improving
#Transient chest pain
Likely musculoskeletal
EKG negative, troponins negative
#Sinus bradycardia
No symptoms, monitor
#Coronary artery disease status post CABG and stent placement
Continue statin, aspirin, Plavix
seen by cardiology for optimization
intermittent Bradycardia
-baseline patient in 50's
-ambulates dailey without dizziness
-brief period HR high 30's without symptoms, not on AV douglas blocking agents likely related to sleep/brief vagal reaction -
HR 60's this AM
-HR stable 70's this AM
#Hyperkalemia
Resolved
#Anxiety/depression
Continue SSRI
#BPH
Continue Flomax
DVT prophylaxis
Full code
Total time spent to see the patient on the floor, examine the patient, review data and lab results, discuss treatment plan with patient, nursing staff around 42 minutes.
Anticipated Discharge: Within 24 hours
Subjective/Interval History
-
Date of Service: May 22, 2024
he is feeling well
right toes with improved mobility
Objective Data
-
Labs:
Laboratory Results
05/22/24
03:43
WBC 9.5
Hgb 14.6
Hct 42.1
Plt Count 158
PT 14.9 H
INR 1.16
APTT 28.8
Sodium 140
Potassium 4.5
Chloride 110 H
Carbon Dioxide 23
BUN 19
Creatinine 1.0
Glucose 137 H
Calcium 8.6
Vital Signs:
Vital Signs
Temp Pulse Resp BP Pulse Ox
97.9 F 67 9 103/57 93
05/21/24 20:00 05/22/24 05:30 05/22/24 05:30 05/22/24 05:00 05/22/24 05:30
I&O
05/21/24 05/22/24 05/23/24
06:59 06:59 06:59
Intake Total 1356 / 1356 1516 / 1516
Output Total 1600 / 1600
Balance 1356 / 1356 -84 / -84
Review of Systems
-
History Source: Patient
All other systems: Reviewed and negative
Physical Exam
-
General: No Apparent Distress
HEENT: PERRLA
Respiratory: Clear to Auscultation; Negative Wheezes
Cardiac: Regular Rhythm and S1/S2
GI: Soft and Nontender
Musculoskeletal: No Edema and Other (no left groin hematoma )
Skin: Warm and Dry; Negative Rash
Neuro: AO x 3
Psych: Calm
Data Reviewed
-
Diagnostic Radiology: Report Reviewed by me
Labs: Labs Reviewed by me
[2024-05-22] MEDS: PROTONIX 40 MG PO (08:48)
--- NOTE | 2024-05-22 09:21 | PTCARENOTE ---
Assumed care of pt. VSS. Pt assisted OOB to chair without issue. Pedal pulses present. L groin soft, ecchymosis present. R ankle dressing CDI. Pt ambulated throughout unit without issue. Tolerated breakfast without issue.
--- NOTE | 2024-05-22 13:16 | PTCARENOTE ---
Assessment unchanged. Pt reporting feeling lip swelling that is increasing and stating that is from Lipitor. States he had lip and throat swelling from crestor in the past. Last dose of lipitor 1800 last night and was 3rd dose. No swelling observed,
speaking clearly, SpO2 94% on RA. Heavy Equipment Engine Mechanic notified and benedryl ordered. Balloon Design Printer notified and lipitor stopped. Pt instructed to restart simvastatin once home.
--- NOTE | 2024-05-22 13:17 | W.PN.UPDATE ---
Update Note
Progress Note Update
Patient complaining of mild right upper lip swelling. He is complaining more of mucosal abnormality on the inside of his mouth. No obvious lip swelling on exam. No pulmonary symptoms, no shortness of breath, no stridor.
This has happened to him before when taking outpatient Crestor. He has taken Benadryl for this in the past. It is much less than has happened in the past.
He will switch back to his simvastatin as outpatient, not sure whether Lipitor was contributing to this symptom.
He is asking for dose of Benadryl. I provided 25 mg x 1.
He was given strict instructions to return to the ED with any worsening symptoms and touch base with his vulcanizing press operator/vascular physician as an outpatient regarding appropriate statin therapy. He will resume his simvastatin
Above reviewed with vascular surgery and primary service
[2024-05-22] MEDS: BENADRYL 25 MG PO (13:22)
--- NOTE | 2024-05-22 13:52 | W.DCSUMMARY ---
Discharge Summary
Discharge Data
Date of Admission: 05/17/24
Date of Discharge: 05/22/24
-
Pending Results: No
Hospital Course
Discharging Physician : Dr. Taty Armas
Disposition : Home
Primary care physician : Dr. Nicolas Escobar
Principal Discharge diagnosis : Limb Ischemia status post bypass
Hospital Course :
74-year-old male with a past medical history PAD status post right SFA stent on 05/02/2023, CAD status post CABG and cardiac stent placement, hypertension, hyperlipidemia, anxiety/depression, BPH presents with acute onset of right calf and foot pain
while pain pickleball. Triage vitals stable, labs without leukocytosis, stable renal function. CTA showed thrombosis of the right superficial femoral artery stent and distal reconstitution of the popliteal artery. He was started on an IV Heparin
gtt, admitted to medicine with Vascular Surgery consulting and cardiology consulting for clearance.
He underwent bypass (procedure below) on 05/21/24. He tolerated procedure well and feels ready to go home.
Per Vascular surgery, he will be on triple therapy with Aspirin, Plavix and Xarelto x 1 month then change to lower Xarelto dosing + aspirin (stop plavix) after one month.
He is started on Protonix for GI PPx.
Time spent on discharge was 32 minutes.
Important imaging findings :
CTA
IMPRESSION:
1. Interval placement of additional right superficial femoral artery stents which are now occluded. Moderate stenosis at the origin of right superficial femoral. There is right popliteal reconstitution with three-vessel runoff.
2. 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 Occlusion of the left anterior tibial artery.
3. Aortic atherosclerotic changes without aneurysmal dilation. Relative narrowing of the distal aorta, patent lumen of 1.0 x 0.7 cm. Without significant change from prior.
4. Hepatic fatty infiltration.
5. Cholelithiasis.
6. Bilateral nonobstructive nephrolithiasis.
7. Small fat-containing umbilical hernia.
Procedure findings :
Date of Operation: 05/21/2024
Pre Op Diagnosis: Critical limb threatening ischemia with recurrent thrombosis of right superficial femoral artery stents
Post Op Diagnosis: Critical limb threatening ischemia with recurrent thrombosis of right superficial femoral artery stents
Procedure:
1.) Percutaneous transmural artery bypass using the DETOUR system (conduit through right femoral vein to popliteal artery)
2.) Endovenous femoropopliteal arterial revascularization with transcatheter placement of stent grafts:
Overlapping TORUS stent grafts (distal to proximal):
6 mm x 200 mm (distal)
6.7 mm x 200 mm
6.7 mm x 150 mm (proximal)
3.) Right lower extremity venogram
4.) Ultrasound-guided percutaneous access to the right posterior tibial tibial vein
5.) Ultrasound-guided percutaneous access to the left common femoral artery
6.) ProGlide closure of the left common femoral artery access
Discharge Plan
-
Patient Disposition: Home (Routine Discharge)
Discharge Diagnosis/Procedures: Limb ischemia with recurrent thrombosis of right superficial femoral artery stents status post bypass procedure
Diet: Low Cholesterol
Activity: As tolerated
Driving Restrictions: As prior to admission
Bathing Restrictions: None
Others Tests: Your follow up ultrasound is on 06/27/2024 at 2pm here at [facility]
Stand Alone Forms: DC Instr - Vascular OR
Referrals:
Katerine Jackson PA-C [Specified Professional Personl] - 07/01/24 10:30 am
Nicolas Escobar DO [Family Provider] - in less than 1 week
Hernan Downing MD [Active] -
(New sleep visit with Dr. Downing or Norris
revisit dx and rx of Sleep apnea (Central Apnea?))
Additional Discharge Medication Instructions: After 30 days from procedure (06/20/2024) stop Xarelto 20 mg PO daily. START ON 06/21/2024 Xarelto 2.5mg by mouth twice daily and STOP Plavix 75mg by mouth daily.
Take Protonix daily to help protect the lining of the stomach while on these three medications. Avoid any excessive alcohol intake to protect the lining of the stomach.
Prescriptions:
New
aspirin 81 mg Tablet,Delayed Release (Dr/Ec)
81 mg PO DAILY Qty: 0 0RF
Xarelto 20 mg Tablet
20 mg PO QPM 29 Days Qty: 0 0RF
Rx Instructions:
STOP THIS DOSE ON 06/20/2024
Xarelto 2.5 mg Tablet
2.5 mg PO BID Qty: 0 0RF
Rx Instructions:
START THIS MEDICATION ON 06/21/2024
pantoprazole 40 mg Tablet,Delayed Release (Dr/Ec)
40 mg PO DAILY Qty: 30 0RF
Continued
simvastatin [Zocor] 20 mg Tablet
20 mg PO HS
ezetimibe [Zetia] 10 mg Tablet
10 mg PO QPM
coQ10 (ubiquinol) 100 mg Capsule
300 mg PO QPM
tamsulosin 0.4 MG capsule
0.4 mg PO QPM
sertraline 50 mg Tablet
25 mg PO HS
clopidogrel 75 mg tablet
75 mg PO HS
Discharge Date and Time
Print Language: MALAY
--- NOTE | 2024-05-22 13:59 | W.DS.TRANS ---
DC Summary - Ear Machine Operator
-
Discharge Instructions:
Discharge Diagnosis/Procedures Limb ischemia with recurrent thrombosis of right
superficial femoral artery stents status post
bypass procedure
Diet Low Cholesterol
Activity As tolerated
Driving Restrictions As prior to admission
Bathing Restrictions None
Others Tests Your follow up ultrasound is on 06/27/2024 at
2pm here at [facility]
Instructions:
Stand-Alone Forms: DC Instr - Vascular OR
Changes to Home Medications: Yes
Discharge Medications:
DC Medications w/original date entered in [employer]
coQ10 (ubiquinol) 100 mg capsule 300 mg PO QPM Supplement 05/02/23
ezetimibe 10 mg tablet (Zetia) 10 mg PO QPM High Cholesterol 05/02/23
simvastatin 20 mg tablet (Zocor) 20 mg PO HS High Cholesterol 05/02/23
tamsulosin 0.4 mg capsule 0.4 mg PO QPM Urinary Issue 05/02/23
clopidogrel 75 mg tablet 75 mg PO HS Blood Clot Prevention/Tx 05/17/24
sertraline 50 mg tablet 25 mg PO HS Depression 05/17/24
aspirin 81 mg capsule 81 mg PO DAILY #90 caps 05/22/24
pantoprazole 40 mg tablet,delayed release 40 mg PO DAILY #30 tabs 05/22/24
rivaroxaban 2.5 mg tablet (Xarelto) 2.5 mg PO BID #160 tabs 05/22/24
rivaroxaban 20 mg tablet (Xarelto) 20 mg PO QPM #29 tabs 05/22/24
Home Medication Changes
After 30 days from procedure (06/20/2024) stop Xarelto 20 mg PO daily. START ON 06/21/2024 Xarelto 2.5mg by mouth twice daily and STOP Plavix 75mg by mouth daily. Continue aspirin daily.
Take Protonix daily to help protect the lining of the stomach while on these three medications. Avoid any excessive alcohol intake to protect the lining of the stomach.
Pending Results: No
--- NOTE | 2024-05-22 15:05 | CM ---
met with pattient who is stable for dc home today.patient signed imm letter.family to transport home with no needs.
[2024-05-22 17:44] LABS: Beta-2-Glycoprotein I Ab. IgG <10 SGU (<=20); Beta-2-Glycoprotein I Ab. IgM <10 SMU (<=20)
[2024-05-22 18:23] LABS: Cardiolipin IgA Antibody <10 APL (<=11); Cardiolipin IgM Antibody <10 MPL (<=12); Cardiolipin Igg Antibody <10 GPL (<=14)
[2024-05-23 01:39] LABS: Phosphatidylserine Ab, IgA 0 APS (0-19); Phosphatidylserine Ab, IgG 0 GPS (0-15); Phosphatidylserine Ab, IgM 0 MPS (0-21)
[2024-05-23 02:28] LABS: Beta-2-Glycoprotein I Ab. IgA <10 SAU (<=20)
== END 2024-05-22 14:46 | disposition home or self-care (01) | DRG 253 ==
LOC: ICU 15:37
PROVIDERS: Internal Medicine; Nurse Practitioner; Nurse Practitioner Acute Care; ADMITTING PHYSICIAN Family Medicine; ATTENDING PHYSICIAN Student in an Organized Health Care Education/Training Program; CONSULT PHYSICIAN Internal Medicine Cardiovascular Disease; CONSULT PHYSICIAN Internal Medicine Critical Care Medicine; CONSULT PHYSICIAN Internal Medicine Hematology & Oncology; EMERGENCY PHYSICIAN Emergency Medicine; FAMILY PHYSICIAN Family Medicine; OTHER PHYSICIAN Surgery Vascular Surgery
PROC: X2KH3E9 Bypass Right Femoral Artery using Conduit through Femoral Vein to Popliteal Artery, Percutaneous Approach, New Technology Group 9 (ICD-10-PCS; 2024-05-21)
DX: I70.221 Atherosclerosis of native arteries of extremities with rest pain, right leg (principal); T82.868A Thrombosis due to vascular prosthetic devices, implants and grafts, initial encounter; I25.5 Ischemic cardiomyopathy; I10 Essential (primary) hypertension; E78.00 Pure hypercholesterolemia, unspecified; E87.5 Hyperkalemia; I25.10 Atherosclerotic heart disease of native coronary artery without angina pectoris; F41.9 Anxiety disorder, unspecified; F32.A Depression, unspecified; N40.0 Benign prostatic hyperplasia without lower urinary tract symptoms; G47.33 Obstructive sleep apnea (adult) (pediatric); G25.81 Restless legs syndrome; I25.2 Old myocardial infarction; S40.021A Contusion of right upper arm, initial encounter; R00.1 Bradycardia, unspecified; R07.89 Other chest pain; R22.9 Localized swelling, mass and lump, unspecified; T46.6X5A Adverse effect of antihyperlipidemic and antiarteriosclerotic drugs, initial encounter; Y83.1 Surgical operation with implant of artificial internal device as the cause of abnormal reaction of the patient, or of later complication, without mention of misadventure at the time of the procedure; Z96.652 Presence of left artificial knee joint; Z79.02 Long term (current) use of antithrombotics/antiplatelets; Z79.899 Other long term (current) drug therapy; Z95.820 Peripheral vascular angioplasty status with implants and grafts; Z95.810 Presence of automatic (implantable) cardiac defibrillator; Z95.5 Presence of coronary angioplasty implant and graft; Z95.1 Presence of aortocoronary bypass graft; Z88.5 Allergy status to narcotic agent; Z87.891 Personal history of nicotine dependence; Z86.16 Personal history of COVID-19; Z79.82 Long term (current) use of aspirin; X58.XXXA Exposure to other specified factors, initial encounter
CPT/HCPCS: 37226; 71045; 75635; 76937; 80048; 80053; 80061; 83735; 84484; 85025; 85027; 85610; 85730; 86146; 86147; 86148; 93005; 93970; 99285; C1725; C1773; C1874; C1894; Q9967

== ENCOUNTER → 2024-06-27 13:52 | Outpatient (REF) | payer MEDICARE, SELFPAY | LOC: RAD 13:52 | PROVIDERS: ATTENDING PHYSICIAN Surgery Vascular Surgery; FAMILY PHYSICIAN Family Medicine | DX: I73.9 Peripheral vascular disease, unspecified (principal); I87.2 Venous insufficiency (chronic) (peripheral) | CPT/HCPCS: 93922; 93925; 93970 ==

== ENCOUNTER 2024-07-05 18:03 | Inpatient (IN) | payer MEDICARE, SELFPAY ==
[2024-07-05] VITALS (19 sets, daily range): BP systolic 112–141; BP diastolic 54–86; BMI 29.4
[2024-07-05 14:21] LABS: % Basophils 0.3 % (0-2); % Eosinophils 0.3 % (0-6); % Immature Granulocytes 0.3 % (0-0.5); % Lymphocytes 14.2 % (20.5-51.1); % Monocytes 4.3 % (1.7-9.3); % Neutrophils 80.6 % (42.2-75.2); Absolute Lymphocytes 1.4 10^3/uL (1.2-3.4); Absolute Monocytes 0.4 10^3/uL (0.1-0.6); Hematocrit 45.5 % (39.0-52.0); Hemoglobin 15.4 g/dL (13.0-18.0); Mean Corp Hgb Conc. 33.8 g/dL (33.0-37.0); Mean Corpuscular Hgb 28.8 pg (27.0-31.0); Mean Corpuscular Volume 85.2 fL (80.0-94.0); Mean Platelet Volume 9.9 fL (7.4-10.4); Nucleated Red Blood Cells % 0 % (-); Platelet Count 163 10^3/uL (130-400); Red Blood Cell Count 5.34 10^6/uL (4.70-6.10); Red Cell Dist. Width 13.7 % (11.5-14.5); White Blood Cell Count 9.9 10^3/uL (4.8-10.8)
--- NOTE | 2024-07-05 14:31 | CON.VAS ---
Consultation
Consultation Request
Date/Time Consultation Performed: 07/05/24 1430
Requesting Provider: Akin Guo PA-C
Performing Provider: Carey GRAYC for Lizandro Stoner III, MD
Reason for Consultation: Acute right lower extremity pain
Medical History
-
Chief Complaint: Acute right lower extremity pain
History of Present Illness:
This is a 74-year-old male known well to the vascular surgical group with significant past medical history for peripheral arterial disease, hypertension, and hypercholesterolemia who presents to [place] ED for acute and sudden onset of right calf
and foot pain while playing pickle ball this morning. Patient is known to our group as he recently presented to the ED on 05/17/2024 with exact right lower extremity pain presentation, ironically also following pickleball playing at that time, and
was found to have thrombosis of right superficial femoral artery stent with distal reconstitution of the popliteal artery. He was admitted and ultimately went under percutaneous trans neural artery bypass/detour for revascularization. He notes
that he was recently seen in the office by Dr. Lizandro Stoner, with recent arterial ultrasound which demonstrated complete patency of bypass. He notes he was doing very well until this morning when he had acute onset of right calf and foot pain
which was identical to prior pain and when it did not resolve throughout the morning he presented to the ED. currently, he endorses that he is comfortable but does have continued mild pain at top of foot and is now noticing decreased ability to bend
his right hallux toe. However, all other motor is intact and sensation completely intact. He denies any severe pain. Denies rest pain. He endorses medical compliance and is continuing to take his Xarelto 2.5 mg p.o. twice daily. He does note
prior to his April ED visit he had experienced a spontaneous bruise to his right elbow, which she saw pleat taper for and patient states she cannot explain spontaneous bruising. He does note that he tolerated full-strength Xarelto while he was on
it and did not have reoccurring spontaneous bruising episodes. Vascular surgical history noted below, he does endorse bilateral lower extremity endovascular interventions performed at [facility] 'many years ago.' However, he did
experience early thrombosis of his left lower extremity stent, this is chronic, and had an episode of acute stent thrombosis 1 year ago in April, that was also treated endovascularly.
Vascular surgical history:
Percutaneous transmural artery bypass using the DETOUR system (conduit through right femoral vein to popliteal artery) 05/21/[address] Lizandro Stoner III
Right lower extremity arteriogram with third order vessel catheterization right popliteal artery via left common femoral artery puncture. Placement of Wayne Viabahn 6 mm x 10 cm covered stent through occluded SFA stent 05/03/[address] Kervin Hernandez
Past Medical History
Past Medical History: HTN, Hypercholesterolemia and Other (PAD)
Past Surgical History: Other (See above)
Social History
Tobacco: Non-Smoker
Personal:
Living: With Family
Family History
Family History: Reviewed & Not Pertinent
Allergies / Home Medications
Allergy/AdvReac Type Severity Reaction Status Date / Time
codeine Allergy UNSURE OF Verified 05/21/24 13:33
REACTION
pollen extracts Allergy Unknown Verified 05/21/24 13:33
�Medication �Instructions �Recorded �Confirmed �Type
coQ10 (ubiquinol) 100 mg capsule 300 mg PO QPM Supplement 05/02/23 05/17/24 History
ezetimibe 10 mg tablet (Zetia) 10 mg PO QPM High Cholesterol 05/02/23 05/17/24 History
simvastatin 20 mg tablet (Zocor) 20 mg PO HS High Cholesterol 05/02/23 05/17/24 History
tamsulosin 0.4 mg capsule 0.4 mg PO QPM Urinary Issue 05/02/23 05/17/24 History
clopidogrel 75 mg tablet 75 mg PO HS Blood Clot 05/17/24 05/17/24 History
Prevention/Tx
sertraline 50 mg tablet 25 mg PO HS Depression 05/17/24 05/17/24 History
aspirin 81 mg capsule 81 mg PO DAILY #90 caps 05/22/24 Rx
pantoprazole 40 mg tablet,delayed 40 mg PO DAILY #30 tabs 05/22/24 Rx
release
rivaroxaban 2.5 mg tablet (Xarelto) 2.5 mg PO BID #160 tabs 05/22/24 Rx
rivaroxaban 20 mg tablet (Xarelto) 20 mg PO QPM #29 tabs 05/22/24 Rx
Review of Systems
-
History Source: Patient
Constitutional: Reports No Symptoms
EENT: Reports No Symptoms
Respiratory: Reports No Symptoms
Cardiac: Reports No Symptoms
Vascular: Reports Leg Pain / Claudication
Abdomen/GI: Reports No Symptoms
: Reports No Symptoms
Musculoskeletal: Reports Other (Pain at dorsum of foot)
Skin: Reports No Symptoms
Neurological: Reports No Symptoms
Endocrine: Reports No Symptoms
Physical Exam
Vital Signs
Temp Pulse Resp BP Pulse Ox
98.8 F 54 18 141/65 95
07/05/24 12:08 07/05/24 14:13 07/05/24 14:13 07/05/24 14:13 07/05/24 14:13
Lab Results
07/05/24 14:08
Physical Exam
General: No Apparent Distress and Comfortable
HEENT: Normocephalic, Anicteric and Atraumatic
Respiratory: Non Labored Respirations
Cardiac: Negative JVD
GI: Soft, Non Tender and Non Distended
Musculoskeletal: No Edema
Skin: Warm, Dry and Other (Right foot is warm but noticed to be cooler in comparison to left)
Neuro: AO x 3
Pulses: Bilateral Femoral: +1 and Right Posterior Tibial: Doppler (Absent right DP Doppler signal)
Assessment / Plan
-
Assessment: 74-year-old male with new onset pain at right lower extremity similar to presentation of prior SFA stent thrombosis concerning for new acute thrombosis of DETOUR bypass
Plan:
Stat CT angio with runoff
Discussed with Dr. Lizandro Stoner III, MD
NPO for possible lysis
[2024-07-05 14:34] LABS: ALT (SGPT) 14 U/L (0-50); AST (SGOT) 26 U/L (17-59); Albumin 4.2 g/dl (3.5-5.0); Alkaline Phosphatase 57 U/L (38-126); Blood Urea Nitrogen 22 mg/dl (9-20); Calcium 9.3 mg/dl (8.4-10.2); Carbon Dioxide 25 mmol/L (22-30); Chloride 108 mmol/L (98-107); Glucose 127 mg/dl (70-99); Potassium 4.8 mmol/L (3.5-5.1); Sodium 142 mmol/L (135-145); Total Bilirubin 0.6 mg/dl (0.2-1.3); Total Protein 6.6 g/dl (6.3-8.2); eGFR > 60.00
[2024-07-05 14:45] LABS: APTT 29.8 Sec (23.4-35.0)
--- NOTE | 2024-07-05 15:26 | ED.GENMED ---
History of Present Illness
General
Chief Complaint: Extremity Pain (non-traumatic)
Time Seen by Provider: 07/05/24 13:43
History of Present Illness
History of Present Illness:
74-year-old male with history of peripheral arterial disease status post bilateral lower extremity femoral artery stents presents to the emergency department for evaluation of right calf and foot discomfort that began after playing pickle ball
earlier today. He has approximately 1 month status post right femoral artery stent occlusion status post femoropopliteal bypass. Pain is minimized while at rest but he still has right foot discomfort. No numbness or pallor of the foot. No fevers
or chills
Past History
Past History
ED Past Medical History: CAD, HTN and Hypercholesterolemia
ED Past Surgical History: Cardiac, Orthopedic and Other (Vascular surgery)
Social History
Tobacco: Former smoker
Alcohol: None
Drug: None
Personal:
Living: with family
Employment: Employed
Review of Systems
Review of Systems
Allergies reviewed?: Yes
All Other Systems: ROS reviewed and negative except as documented in HPI and ROS
Phy Exam
Physical Exam
Physical Exam:
GEN: Well appearing, NAD, WDWN
HEENT: Oral mucosa moist, no scleral icterus
Cardiac: Regular rate
Lung: No respiratory distress, no tachypnea
MSK: No gross deformity or injuries. No pallor to the right lower extremity. Thready dorsalis pedis pulse, nonpalpable right posterior tibialis pulse. Pulses are quite thready by Doppler, sensation is intact
Skin: Good color, no pallor or jaundice, no rashes
Neuro: AO x3, moves all extremities freely
Psych: Calm, cooperative
Course
Orders/Labs/Results
Orders:
Orders
07/05/24 14:08
Complete Blood Count/With Diff Urgent
Comprehensive Metabolic Panel Urgent
PTT Urgent
Prothrombin Time Urgent
07/05/24 14:28
CT Abd Aorta Angio W/ Run Off Stat
Comment:
Reason For Exam: r/o bypass occlusion
07/05/24 15:30
Heparin 37537 Units/250 ml 25,000 units in 250 ml IV PER PROTOCOL
Weight to be used for heparin protocol in kilograms (kg):: 92.9
Protocol:: Vascular Surgery
PTT Goal Range to be used:: PTT 73 to 111 seconds
Order type:: Initial
INITIAL Infusion Dose (UNITS/KG/hr) & then follow protocol:: 18 units/kg/hr
Infusion Dose in UNITS/hr & then follow protocol (UNITS/hr):: 1,700
INFUSION RATE in mL/hr & then follow protocol (mL/hr):: 17
PTT less than or equal to 64 seconds:: Notify Ordering Provider. obtain orders for rate increase &
possible bolus
PTT 64.1 to 72.9 seconds:: Increase rate by 100 units/hr (+ 1 mL/hr)
PTT 73 to 111 seconds:: Target Range. No change in rate.
PTT 111.1 to 130.9 seconds:: Decrease rate by 100 units/hr (- 1 mL/hr)
PTT 131 to 199.9 seconds:: HOLD for 1 hour. Then decrease rate by 200 units/hr (- 2 mL/hr)
PTT greater than or equal to 200 seconds:: STOP INFUSION. Notify Ordering provider to obtain further orders.
Lab follow-up:: Each change, PTT q6h until 2 consecutive are therapeutic. Then PTT
daily.
07/05/24 16:10
Heparin 4,000 units IV NOW STA
07/05/24 17:40
Alteplase [Cathflo/Activase] 10 mg Syringe [Syringe Non-Pump] 0 ml INTRAARTER NOW
07/05/24 17:41
Admit/Transfer Patient As Directed
Co-Sign Provider:
Level of Care: Inpatient admission
Assign to:: Medical/Surgical
Physician / Group: dione
Diagnosis: right foot pain
Reason for Hospitalization: occluded right lower extremity bypass
Expected length of stay greater than two midnights?: Yes
ELOS- Estimated Length of Stay in days: 2
I certify the patient meets the requirements for IP care: Yes
PRN Pain Medication Management As Directed
May give lesser potent ordered pain med per pt: Yes
preference::
Protocol:: Medication orders for pain may be administered in a
manner that supports deferring to patient preference
when the pt is:
- Requesting an ordered lesser potent pain medication.
Least to most potent pain medications are defined
as: acetaminophen < NSAID < tramadol < opioids
(morphine, oxycodone, hydromorphone).
- Requesting a lesser dose of the same medication IF
ORDERED.
- Requesting a less intrusive route of administration
if both routes are prescribed by the provider (PO <
IV).
07/05/24 17:42
Code Status As Directed
Resuscitation Status: Full Code
07/05/24 17:45
0.9% Sodium Chloride 1000 ml [Nss] 1,000 ml INF CATH 46 mls/hr
Alteplase [Cathflo/Activase] 4 mg 0.9% Sodium Chloride 50 ml [Nss] 12 ml Syringe [Syringe-Pump] 0 ml INF CATH Q4H
07/05/24 22:00
PTT Urgent
Abnormal Lab Results
07/05/24
14:08
Absolute Neuts (auto) 8.0 H 10^3/uL
(1.4-6.5)
Neutrophils % 80.6 H %
(42.2-75.2)
Lymphocytes % 14.2 L %
(20.5-51.1)
PT 15.0 H Sec
(11.4-14.6)
Chloride 108 H mmol/L
(98-107)
BUN 22 H mg/dl
(9-20)
Glucose 127 H mg/dl
(70-99)
07/05/24 14:08
07/05/24 14:08
Vital Signs
Initial and Last Documented VS:
Initial Vital Signs
Temp Pulse Resp BP Pulse Ox
98.8 F 78 18 117/56 94
07/05/24 12:08 07/05/24 12:08 07/05/24 12:08 07/05/24 12:08 07/05/24 12:08
Last Documented Vital Signs
Temp Pulse Resp BP Pulse Ox
98.8 F 55 16 141/86 96
07/05/24 12:08 07/05/24 17:51 07/05/24 17:51 07/05/24 17:51 07/05/24 17:51
MDM/Problems Addressed
MDM/Problems Addressed:
Patient was seen in conjunction with vascular surgery, unfortunately he has an occlusion of his femoral artery bypass and will require operative intervention. Will be admitted to the hospitalist service on heparin with plans for vascular
intervention tomorrow
*Critical Care Note
Total Time (30-74mins, 75-104mins- exclusive of procedures): Not Applicable
ED Attending Note
-
Portions of this chart may have been created with voice recognition software.� Occasional wrong word or��sound alike� substitutions may have occurred due to the inherent limitations of voice recognition software.
Discharge Plan
Departure
Patient Disposition: Admit
Date of Disposition: 07/05/24
Time of Disposition: 17:21
Admit to: Med/Surg
Presentation/result/management discussed w/ accepting MD/DO: Hospitalist
Discharge Problem:
Femoral-popliteal bypass graft occlusion, right
Interventions
Interventions:
*Risk Screen - Suicide Last Done: 07/05/24 12:08
*General Assessment Last Done: 07/05/24 12:08
*Neglect/Abuse Screening Last Done: 07/05/24 12:08
*ED COVID-19 Vaccine History Last Done: 07/05/24 12:08
*Nursing Disposition Last Done: 07/05/24 18:24
ED-Skin Assessment Last Done: 07/05/24 16:47
ED-Peripheral Vascular Assessment Last Done: 07/05/24 12:16
Discharge Date and Time
Discharge Date/Time: 07/05/24 18:24
--- NOTE | 2024-07-05 16:16 | EDRN ---
Heparin order clarified by pharmacy; pt in CT.
[2024-07-05] MEDS: HEPARIN 25000 UNITS/250 ML IV (16:35)
[2024-07-05] MEDS: HEPARIN 4000 UNITS IV (16:36)
--- NOTE | 2024-07-05 17:43 | HPS.HSE ---
Family Physician
-
Family Physician: Nicolas Escobar
Chief Complaint
-
right foot pain
History of Present Illness
74-year-old male past medical history of peripheral arterial disease status post right SFA stent and bypass, CAD status post CABG, hypertension, hypercholesteremia, anxiety/depression, BPH presenting with acute onset of right calf pain and foot pain
while playing Spo[place] ball this morning.
He had similar symptoms when he presented on 05/17 and was found to have thrombosis of the right superficial femoral artery stent with distal reconstruction of the popliteal artery. He underwent bypass. He recently saw Dr. Stoner and had arterial
ultrasound which demonstrated complete patency of bypass. He was doing well until this morning when he had acute onset of right calf and foot pain. He is compliant with Xarelto.
He is a former smoker. He only rarely drinks alcohol.
Medical History
Past Medical History
Past Medical History: Reports Other (peripheral arterial disease status post right SFA stent and bypass, CAD status post CABG, hypertension, hypercholesteremia, anxiety/depression, BPH)
Past Surgical History: Reports Other (Cardiac, Orthopedic and Other (Vascular surgery))
Social History
Tobacco: Former Smoker
Alcohol: Occasional
Drug: None
Family History
Family History: Not pertinent
Allergies / Home Medications
Allergies reflects when Allergies were last updated in [facility].
Home Medications with original date entered in [facility]
Allergy/Medication List:
Allergies
Allergy/AdvReac Type Severity Reaction Status Date / Time
codeine Allergy UNSURE OF Verified 05/21/24 13:33
REACTION
pollen extracts Allergy Unknown Verified 05/21/24 13:33
Home Medications
coQ10 (ubiquinol) 100 mg capsule 300 mg PO HS Supplement 05/02/23
ezetimibe 10 mg tablet (Zetia) 10 mg PO HS High Cholesterol 05/02/23
tamsulosin 0.4 mg capsule 0.4 mg PO HS Urinary Issue 05/02/23
sertraline 50 mg tablet 50 mg PO HS Depression 05/17/24
rivaroxaban 2.5 mg tablet (Xarelto) 2.5 mg PO BID #160 tabs 05/22/24
aspirin 81 mg tablet,delayed release 81 mg PO DAILY 07/05/24
diphenhydramine HCl 25 mg capsule (ZzzQuil) 25 mg PO HSPRN PRN sleep 07/05/24
docusate sodium 100 mg capsule (Stool Softener) 100 mg PO DAILYPRN PRN constipation 07/05/24
simvastatin 40 mg tablet 40 mg PO HS 07/05/24
Review of Systems
-
History Source: Patient
A 12 point ROS was completed and negative except as noted: Yes
Constitutional: Reports No Symptoms
EENT: Reports No Symptoms
Respiratory: Reports No Symptoms
Cardiac: Reports No Symptoms
Abdomen/GI: Reports No Symptoms
: Reports No Symptoms
Musculoskeletal: Reports See HPI
Skin: Reports No Symptoms
Neurological: Reports No Symptoms
Endocrine: Reports No Symptoms
Hematologic/Lymphatic: Reports No Symptoms
Psych: Reports No Symptoms
Physical Exam
Vital Signs
Vital Signs
Temp Pulse Resp BP Pulse Ox
98.8 F 54 18 141/65 95
07/05/24 12:08 07/05/24 14:13 07/05/24 14:13 07/05/24 14:13 07/05/24 14:13
Physical Exam
General: Well Developed, Well Nourished and No Apparent Distress
HEENT: NormoCephalic, Moist mucous membranes and Atraumatic
Respiratory: Clear
Cardiac: S1/S2 and Regular Rhythm; No Murmur or Rub
GI: Soft, Non Tender, Non Distended and Normal Bowel Sounds; No Organomegaly
Rectal: Deferred by Provider
Musculoskeletal: No Clubbing, No Cyanosis and No Edema
Skin: No Rash
Neuro: Nonfocal/grossly intact
Laboratory Results
-
07/05/24 14:08
07/05/24 14:08
Laboratory Results
PT 15.0 Sec (11.4-14.6) H 07/05/24 14:08
INR 1.20 07/05/24 14:08
APTT 29.8 Sec (23.4-35.0) 07/05/24 14:08
Total Bilirubin 0.6 mg/dl (0.2-1.3) 07/05/24 14:08
AST 26 U/L (17-59) 07/05/24 14:08
ALT 14 U/L (0-50) 07/05/24 14:08
Alkaline Phosphatase 57 U/L (38-126) 07/05/24 14:08
Data Reviewed
-
Lab Data: Labs Reviewed by me
Old Records: Reviewed
Impression/Plan
-
IMPRESSION:
PLAN:
# Occluded right lower extremity bypass
# History of PAD status post right SFA stent and recent bypass
-N.p.o. for thrombolysis tonight
-Heparin drip in place of Xarelto
-Continue aspirin
Chronic left lower extremity bypass graft
History of left lower extremity stent thrombosis treated endovascularly
-Continue aspirin
CAD status post CABG
-Continue aspirin
Essential hypertension
Hypercholesterolemia
-Continue statin, Zetia
Anxiety/depression
-Continue sertraline
BPH
-Continue tamsulosin
Full code
DVT prophylaxis�heparin drip
N.p.o.
--- NOTE | 2024-07-05 17:55 | W.PN.UPDATE ---
Update Note
Progress Note Update
This patient was seen and examined with MELONIE Lam. I agree with the history and physical exam as well as the assessment and plan. I have the following additions:
Patient well-known to me
Previous bilateral occluded SFA stents
Recent percutaneous transmural artery bypass right lower extremity
Doing very well up until today
Recent postoperative duplex showed widely patent detour with no focal velocity elevations to suggest significant stenosis
Acute onset right lower extremity pain today while playing pickleball
Cross-sectional imaging personally reviewed which demonstrates occluded detour bypass in the right lower extremity. Reconstitution of the pop artery is identified.
On exam he has full motor and sensory function in the right foot and toes
Weak monophasic posterior tibial Doppler signal on the right
Discussed option for initiation of thrombolysis which I am recommending given acute occlusion of the detour stents.
Technical aspects of this procedure were discussed with him in detail. Benefits and rationale for this approach were discussed with him in detail. Operative risks were discussed with him in detail including but not limited to access site injury,
hematoma, bleeding, infection, contrast nephropathy, distal embolization, limb loss and the need for additional surgery.
He expressed a clear understanding of our conversation and agrees to proceed with surgery as detailed above. My partner, Dr. Cummings will be performing the procedure and the patient is aware.
Signed:
Lizandro tSoner III, MD
[facility]
[phone] (rrce)
--- NOTE | 2024-07-05 19:25 | W.IMMPOSTOP ---
Surgical Immed Post Op Note
-
Primary Surgeon: [email or web address]
Assisting Surgeon: none
Pre-op Diagnosis: ischemic right leg
Post-op Diagnosis: same
Procedure Performed: lle agram, suction thrombectomy, lytic cath placement
Anesthesia Type: sedation
Specimen / Cultures: none
Estimated Blood Loss: 50
Complications: none
Operative Findings: pt signal
[2024-07-05] MEDS: CATHFLO/ACTIVASE 16 ML INF CATH ×3 (20:00→22:10)
[2024-07-05] MEDS: CATHFLO/ACTIVASE 16 MG INF CATH ×3 (20:00→22:10)
[2024-07-05] MEDS: HEPARIN 25000 UNITS/250 ML ART SHEATH (21:10)
[2024-07-05] MEDS: NORMOSOL-R/PLASMALYTE-A 1000 IV (21:39)
[2024-07-05] MEDS: FLOMAX 0.4 MG PO (22:01)
[2024-07-05] MEDS: LIPITOR 20 MG PO (22:01)
[2024-07-05] MEDS: ZETIA 10 MG PO (22:01)
[2024-07-05] MEDS: ZOLOFT 50 MG PO (22:01)
[2024-07-05] MEDS: ANCEF 5 IV (22:20)
--- NOTE | 2024-07-05 22:30 | PTCARENOTE ---
Received patient in bed AAOx3. neurovascular assessment completed with REJI Lucero. Doppler pulses are present to bilateral DPs and PTs. Feet are warm and skin toned. Patient denies numbness and tingling or pins and needles feeling. Left limb to be
kept straight. The patient dorsiflex and planta flexes his left foot. Right lower extremity movement is normal. Left groin incision site is oozy.gauze reinforcement applied. Heparin gtt and TPA are infusing at the site. Arterial line transduced. TPA
is at 2 mg/hr (8 mL/hr) with NSS at 46ml/hr., and heparin gtt at 500 units/hr (5 ml/hr). Patient is sinus leyla on the monitor with HR 50. The patient states that his HR runs low at baseline. BP via right upper extremity as the heparin and art line
can't be utilized concurrently. ACCOUNT ENGINEER made aware and okay to just run heparin. Auto BP comparable to arterial line when spot checked. SpO2 at 98% on 2L O2/nc. Diminished breath sounds. +BS. Stoner catheter is intact and draining cloudy yellow urine.
Patient advised to keep limb straight. Plan of care discussed. Questions answered. Full documentation as noted on the flowsheet.
[2024-07-05 22:58] LABS: Hematocrit 42.8 % (39.0-52.0); Hemoglobin 15.5 g/dL (13.0-18.0); Platelet Count 169 10^3/uL (130-400)
[2024-07-05 23:15] LABS: INR 1.24; PT 15.5 Sec (11.4-14.6)
[2024-07-05 23:16] LABS: APTT 82.9 Sec (23.4-35.0)
[2024-07-05 23:37] LABS: Fibrinogen 312 MG/DL (199-459)
[2024-07-06] VITALS (42 sets, daily range): BP systolic 89–147; BP diastolic 49–97; BMI 28.8
[2024-07-06] MEDS: MORPHINE SULFATE 2 MG IV (01:12)
--- NOTE | 2024-07-06 01:58 | PTCARENOTE ---
0000- Patient reassessed. The patient noted to have petechia like spots on his chest. MOTOR INSTALLER made aware and stated that they are medley angioma. No changes from the previous assessment.
[id number]: Patient's left groin continues to ooze. patient cleansed and gauze reinforcement applied with Tegaderm. Patient cleansed with CHG wipes and linens changed. PRN administered for pain.
[2024-07-06] MEDS: NSS 1000 INF CATH (02:21)
[2024-07-06] MEDS: CATHFLO/ACTIVASE 16 ML INF CATH ×2 (02:22→06:39)
[2024-07-06] MEDS: CATHFLO/ACTIVASE 16 MG INF CATH ×2 (02:22→06:39)
[2024-07-06 04:11] LABS: Hematocrit 42.2 % (39.0-52.0); Hemoglobin 14.5 g/dL (13.0-18.0); Mean Corp Hgb Conc. 34.4 g/dL (33.0-37.0); Mean Corpuscular Hgb 28.9 pg (27.0-31.0); Mean Corpuscular Volume 84.1 fL (80.0-94.0); Mean Platelet Volume 10.1 fL (7.4-10.4); Platelet Count 132 10^3/uL (130-400); Red Blood Cell Count 5.02 10^6/uL (4.70-6.10); Red Cell Dist. Width 13.6 % (11.5-14.5); White Blood Cell Count 7.1 10^3/uL (4.8-10.8)
[2024-07-06 04:23] LABS: INR 1.22; PT 15.2 Sec (11.4-14.6)
[2024-07-06 04:24] LABS: APTT 38.7 Sec (23.4-35.0); Fibrinogen 266 MG/DL (199-459)
[2024-07-06 04:30] LABS: ALT (SGPT) 14 U/L (0-50); AST (SGOT) 28 U/L (17-59); Albumin 3.7 g/dl (3.5-5.0); Alkaline Phosphatase 60 U/L (38-126); Blood Urea Nitrogen 18 mg/dl (9-20); Calcium 8.7 mg/dl (8.4-10.2); Carbon Dioxide 20 mmol/L (22-30); Chloride 110 mmol/L (98-107); Estimated Creatinine Clearance 72 ml/min; Glucose 166 mg/dl (70-99); Magnesium 1.9 mg/dl (1.6-2.3); Phosphorus 2.7 mg/dl (2.5-4.5); Potassium 5.1 mmol/L (3.5-5.1); Sodium 141 mmol/L (135-145); Total Bilirubin 0.8 mg/dl (0.2-1.3); eGFR > 60.00
[2024-07-06] MEDS: ANCEF 5 IV (04:48)
--- NOTE | 2024-07-06 05:09 | PTCARENOTE ---
[id number]: Patient reassessed. VSS. Neurovascular assessment as documented.Left femoral groin area continues to be oozy despite multiple reinforcement. No hematoma. Site is soft to the touch. PARLIAMENTARY COUNSEL made aware and Dr. Cummings page made aware. Plan
to continue monitoring.
--- NOTE | 2024-07-06 07:31 | CON.INTV ---
Consultation
Consultation Request
Date/Time Consultation Requested: 07/06/2024-7 AM
Date/Time Consultation Performed: 07/06/2024-7:30 AM
Requesting Provider: Vascular surgery
Performing Provider: Dr. Downing
Reason for Consultation: Postoperative critical care management
Medical History
-
Chief Complaint: PAD
History of Present Illness:
74-year-old male with a history of PAD, hypertension, hyperlipidemia with recent hospitalization who presented with similar presentation to prior SFA stent thrombosis concern for acute thrombosis of detour bypass and underwent sheath placement,
thrombectomy, and lysis therapy-rn patient care consulted for postoperative critical care management 07/06/2024. Patient feels much improved this morning with return of blood flow to his legs, denies any shortness of breath, chest pain, chest
tightness, productive cough, pleurisy, abdominal pain, nausea, leg pain or focal weakness.
Past Medical History
Past Medical History: None (Hypertension. Hyperlipidemia. CAD/stent/CABG. TANJA. BPH. Restless legs. History of pancreatitis. PAD status post lower extremity stents/bypass, etc. anxiety/depression.)
Social History
Tobacco: Former Smoker (60-[facility] quit 40 years ago)
Alcohol: Occasional
Drug: None
Personal:
Living: With Family
Occupational Exposures: No known asbestos exposure
Environmental Exposures: No known tuberculosis exposure
Family History
Family History: Other (Family history of liver cancer, lung cancer, leukemia in father, sister and mother. All)
Allergies / Home Medications
Allergies
Allergy/AdvReac Type Severity Reaction Status Date / Time
codeine Allergy UNSURE OF Verified 05/21/24 13:33
REACTION
pollen extracts Allergy Unknown Verified 05/21/24 13:33
Home Medications
�Medication �Instructions �Recorded �Confirmed �Last Taken �Type
coQ10 (ubiquinol) 100 mg capsule 300 mg PO HS Supplement 05/02/23 07/05/24 07/04/24 History
ezetimibe 10 mg tablet (Zetia) 10 mg PO HS High Cholesterol 05/02/23 07/05/24 07/04/24 History
tamsulosin 0.4 mg capsule 0.4 mg PO HS Urinary Issue 05/02/23 07/05/24 07/04/24 History
sertraline 50 mg tablet 50 mg PO HS Depression 05/17/24 07/05/24 07/04/24 History
rivaroxaban 2.5 mg tablet (Xarelto) 2.5 mg PO BID #160 tabs 05/22/24 07/05/24 07/05/24 Rx
aspirin 81 mg tablet,delayed 81 mg PO DAILY 07/05/24 07/05/24 07/05/24 History
release
diphenhydramine HCl 25 mg capsule 25 mg PO HSPRN PRN sleep 07/05/24 07/05/24 Unknown History
(ZzzQuil)
docusate sodium 100 mg capsule 100 mg PO DAILYPRN PRN constipation 07/05/24 07/05/24 Unknown History
(Stool Softener)
simvastatin 40 mg tablet 40 mg PO HS 07/05/24 07/05/24 07/04/24 History
Review of Systems
-
Unable to Obtain full review of systems at this time due to: Other (Per HPI)
Vitals / Labs / Diagnostic Testing
Vital Signs
Temp Pulse Resp BP Pulse Ox
98.2 F 71 15 147/56 95
07/06/24 07:00 07/06/24 06:35 07/06/24 06:35 07/06/24 06:08 07/06/24 06:35
Lab Data
07/06/24 03:58
Laboratory Results
07/05/24 07/05/24 07/05/24
14:08 19:30 22:49
PT 15.0 H Cancelled 15.5 H
INR 1.20 Cancelled 1.24
APTT 29.8 Cancelled Cancelled
07/05/24 07/06/24 07/06/24
22:49 01:30 03:58
PT Cancelled 15.2 H
INR Cancelled 1.22
APTT 82.9 H Cancelled 38.7 H
07/06/24 07/06/24 07/06/24
06:00 07:30 13:30
PT Cancelled Cancelled
INR Cancelled Cancelled
APTT Cancelled Cancelled Cancelled
07/06/24
19:30
PT Cancelled
INR Cancelled
APTT Cancelled
Diagnostic Testing:
Physical Exam
-
Exam:
Well-nourished and well-developed in no apparent distress
HEENT-atraumatic, normocephalic
Neck-supple, no JVD, no bruit
Heart-regular rate and rhythm-no murmurs, rubs or gallops
Chest-clear to auscultation, no wheezes, crackles
Back-no tenderness
Abdomen-soft, nontender, nondistended, no hepatosplenomegaly
Extremities-no cyanosis, clubbing, edema and good peripheral pulses
Integument-intact, no rashes, lesions or ecchymosis
Neurology-alert and oriented, nonfocal motor and sensory exam
Assessment
-
74-year-old male with a history of PAD, hypertension, hyperlipidemia with recent hospitalization who presented with similar presentation to prior SFA stent thrombosis concern for acute thrombosis of detour bypass and underwent sheath placement,
thrombectomy, and lysis therapy-rn patient care consulted for postoperative critical care management 07/06/2024.
PAD status post acute thrombosis of right lower extremity deep to her bypass
Status post suction thrombectomy, lysis and lytic catheter placement 07/05/2024
Scheduled for lysis catheter placement check, possible removal, angiogram and possible IDL/stent/balloon angioplasty 07/06/2024
Mild leukocytosis
Hyperglycemia
Mild metabolic acidosis
Conditions present prior to admission:
Recent hospitalization 06/11-ischemic lower extremity status post detour bypass
Hypertension.
Hyperlipidemia.
CAD/stent/CABG.
TANJA/central sleep apnea.
BPH.
Restless legs.
History of pancreatitis.
PAD status post lower extremity stents/bypass, etc.
Anxiety/depression.
Fatty liver
Cholelithiasis
Bilateral nonobstructing nephrolithiasis
Plan
Postoperative surgical intensive care unit monitoring
Supplemental oxygen as needed
Incentive spirometry
Aspiration precautions
Neuro and vascular checks per protocol
Vascular surgery following-correspondence and operative notes reviewed
Return to OR as noted above today
Monitor blood sugar
Insulin supplementation as needed
DVT prophylaxis
Early nutrition
Early mobilization
Patient last saw Dr. Bentley 01/28/2020 for obstructive sleep apnea-AHI 32, desaturation fiorella 84%, AutoPap CPAP 10 cm-recommend follow-up
Critical care statement: A total of 50 minutes of critical care time was provided for this patient today. This includes management of unstable vital signs, evaluation of the patient at bedside, reviewing the patient's pertinent medical records
including radiographs, microbiology, laboratory evaluations, and discussion with primary team, consultants, pharmacy, nutrition, physical therapy, case management, charge nurse, critical care nursing, and respiratory therapy.
Diagnostic data:
Chest x-ray 10/20/2023-NAD, left basilar atelectasis
Chest x-ray 05/21/2024-lungs are clear, no evidence for CHF, pneumothorax or pneumonia
Chest x-ray 07/05/2024-subtle faint opacification retrocardiac left lower lobe
CT abdomen and pelvis 05/17/2024-lung bases with subsegmental atelectasis and scarring, right superficial femoral artery stents occluded, long segment chronic occlusion of left superficial femoral artery, cholelithiasis, fatty liver, bilateral
nonobstructing nephrolithiasis
CT abdomen and pelvis 07/05/2024-mild bibasilar subsegmental atelectasis, lungs otherwise clear, right femoral to popliteal bypass graft is occlusion at its origin, popliteal artery is reconstituted via branches of the profunda, left lower extremity
arterial bypass graft is occluded unchanged compared to prior CT, cholelithiasis, pronounced enlargement of the prostate gland
Echocardiogram 08/01/2023-EF 45-50%, mild mitral regurgitation, EF 45-50%
Polysomnography 07/2008: AHI 32. Saturation fiorella was 84%.
Data Reviewed
-
PFT: Report reviewed by me
EKG: Report reviewed by me
Radiology: Image personally visualized and interpreted and Report reviewed by me
CT Scan: Image personally visualized and interpreted and Report reviewed by me
Medical Tests (Nuc Med, Echo etc): Report reviewed by me
Labs: Labs reviewed by me
Old Records: Reviewed
Critical Care Time (in minutes): 50
[2024-07-06] MEDS: ASPIR LOW (ENTERIC COATED) PO (07:33)
[2024-07-06 08:23] LABS: Hematocrit 41.6 % (39.0-52.0); Hemoglobin 14.4 g/dL (13.0-18.0); Platelet Count 125 10^3/uL (130-400)
--- NOTE | 2024-07-06 08:24 | PTCARENOTE ---
Received pt from change of shift, neurovascular checks completed per orders. L groin dressing oozing sang drainage; dressing reinforced per nightshift RN. Tissue soft around site; no hematoma present. L sheath remains in place w heparin and TPA
infusing- see MAR. Dr. Robins to bedside to assess this AM. Pt. taken to vascular OR @ 0815 by SUPERINTENDENT PRESSURE x2. Awaiting pt. return from OR.
[2024-07-06 08:34] LABS: APTT 38.7 Sec (23.4-35.0); INR 1.27; PT 15.8 Sec (11.4-14.6)
[2024-07-06 08:35] LABS: Fibrinogen 215 MG/DL (199-459)
--- NOTE | 2024-07-06 08:35 | W.PN.VS ---
Today's Communication / Plan
-
See below.
Assessment/Plan
-
Assessment: 74 year old male with acute thrombosis of RLE DETOUR bypass
Plan:
OR today for lysis catheter placement check, possible removal, angiogram, possible IVL/stent/balloon angioplasty
NPO
Subjective Data
-
Date of Service: July 06, 2024
Patient seen at bedside, reports vast improvement to near resolution of right foot pain. Sensation and motor intact. Denies nausea, vomiting, fever, and chills.
Objective Data
-
Vital Signs
Temp Pulse Resp BP Pulse Ox
98.2 F 71 15 147/56 95
07/06/24 07:00 07/06/24 06:35 07/06/24 06:35 07/06/24 06:08 07/06/24 06:35
Intake and Output
07/05/24 07/06/24 07/07/24
06:59 06:59 06:59
Intake Total 1278 / 1278
Output Total 627 / 627
Balance 651 / 651
Intake:
IV fluids (Total) 1278 / 1278
HEPARIN 23725 UNITS/250 ML 25, 50 / 50
000 units In 250 ml @ 500 UNITS
/HR 5 mls/hr ART SHEATH .Q24H
[facility] Rx#:[id number]
Normosol-R/Plasmalyte-A 1,000 720 / 720
ml @ 80 mls/hr IV .[id number] [facility]
Rx#:[id number]
Nss 1,000 ml @ 46 mls/hr INF 460 / 460
CATH .[id number] [facility] Rx#:[id number]
TPA 48 / 48
Output:
Urine, Stoner 627 / 627
Lab Results
07/06/24 03:58
Calcium 8.7 mg/dl (8.4-10.2) 07/06/24 03:58
Phosphorus 2.7 mg/dl (2.5-4.5) 07/06/24 03:58
Magnesium 1.9 mg/dl (1.6-2.3) 07/06/24 03:58
Total Bilirubin 0.8 mg/dl (0.2-1.3) 07/06/24 03:58
Direct Bilirubin Cancelled 07/06/24 06:00
AST 28 U/L (17-59) 07/06/24 03:58
ALT 14 U/L (0-50) 07/06/24 03:58
Alkaline Phosphatase 60 U/L (38-126) 07/06/24 03:58
Total Protein 6.0 g/dl (6.3-8.2) L 07/06/24 03:58
Albumin 3.7 g/dl (3.5-5.0) 07/06/24 03:58
Physical Exam
-
AAOx3
No tachypnea
No tachycardia
Abdomen soft, non-tender, non-distended
Left Groin site with evidence of oozing, but stable, HGB stable and BP stable, no hematoma, all surrounding compartments soft
Right calf soft, motor and sensation intact, foot warm
Right DP and PT doppler signals.
[2024-07-06 10:01] LABS: Hematocrit 40.4 % (39.0-52.0); Hemoglobin 13.9 g/dL (13.0-18.0); Mean Corp Hgb Conc. 34.4 g/dL (33.0-37.0); Mean Corpuscular Hgb 28.6 pg (27.0-31.0); Mean Corpuscular Volume 83.1 fL (80.0-94.0); Mean Platelet Volume 9.7 fL (7.4-10.4); Platelet Count 128 10^3/uL (130-400); Red Blood Cell Count 4.86 10^6/uL (4.70-6.10); Red Cell Dist. Width 13.5 % (11.5-14.5); White Blood Cell Count 10.9 10^3/uL (4.8-10.8)
[2024-07-06] MEDS: HEPARIN 25000 UNITS/250 ML IV (10:09)
[2024-07-06] MEDS: NORMOSOL-R/PLASMALYTE-A 500 IV (10:11)
[2024-07-06 10:12] LABS: APTT 33.1 Sec (23.4-35.0)
--- NOTE | 2024-07-06 10:28 | W.PN.HOSP.TC ---
Addendum entered and electronically signed by Michael Becker MD 07/06/24 11:44:
I saw and evaluated the patient. I reviewed the resident�s note and agree with findings and plan as documented in the resident�s note.
No new complaints.
Gen: NAD, AAOx3.
Eyes: EOMI, PERRLA, no scleral icterus.
Neck: supple.
CV: RRR, +S1/S2, no m/r/g.
Resp: CTAB, no rales, wheezes, or rhonchi.
Abd: +BS, soft, NT, ND
Skin: No rashes.
Vasc: 2+ R PT pulse
Neuro: CN 2-12 intact, non-focal.
Psych: Normal mood and affect.
Ischemic right lower extremity:
-s/p LLE arteriogram, suction thrombectomy, lytic cath placement on 07/05/24
-cont heparin gtt until tomorrow AM at which time will likely transition back to Xarelto
-cont ASA/statin
-discussed with vascular
Original Note:
Today's Communication/Plan
-
Monitor vitals
Mobilize the patient
Allow soft diet
Assessment / Plan
Assessment / Plan
Impression
A 74-year-old male with acute thrombosis of right lower extremity detour bypass. Admitted for lysis catheter placement check, possible removal, angiogram, possible IVUS/stent/balloon angioplasty.
Assessment and plan
Acute thrombosis of right lower extremity detour bypass
Patient has history of peripheral arterial disease with superficial femoral artery stenting done 11 years ago
Previous bilateral occluded SFA stents
Recent percutaneous transmural artery bypass right lower extremity
Patient was on Xarelto for anticoagulation
Presented with acute pain in right leg and foot, on workup occluded detour bypass in the right lower extremity.
Suction thrombectomy and lysis catheter placement done
Procedure completed uneventfully, patient feels well
The right lower extremity dorsalis pedis artery palpable now but was not appreciated at the time of admission
Patient Currently on heparin for anticoagulation
Vitally stable
OTHER
Previous bilateral occluded SFA stents
Recent percutaneous transmural artery bypass right lower extremity
-Continue aspirin
CAD status post CABG-----Continue aspirin
Essential hypertension
Hypercholesterolemia----Continue statin, Zetia
Anxiety/depression----Continue sertraline
BPH-----Continue tamsulosin
Full code
DVT prophylaxis�heparin drip
Anticipated Discharge: 24 - 48 hours
Subjective/Interval History
-
Date of Service: July 06, 2024
Mild discomfort at the site of lysis catheter advancement.otherwise feels well, no pain and active issues
Objective Data
-
Labs:
Laboratory Results
07/05/24 07/05/24 07/06/24
22:49 22:49 01:30
WBC
Hgb 15.5
Hct 42.8
Plt Count 169 Cancelled
PT 15.5 H Cancelled
INR 1.24 Cancelled
APTT Cancelled 82.9 H Cancelled
Sodium
Potassium
Chloride
Carbon Dioxide
BUN
Creatinine
Glucose
Calcium
Total Bilirubin
AST
ALT
Alkaline Phosphatase
07/06/24 07/06/24 07/06/24
03:58 03:58 03:58
WBC 7.1
Hgb Cancelled 14.5
Hct Cancelled 42.2
Plt Count Cancelled
PT
INR
APTT
Sodium
Potassium
Chloride
Carbon Dioxide
BUN
Creatinine
Glucose
Calcium
Total Bilirubin
AST
ALT
Alkaline Phosphatase
07/06/24 07/06/24 07/06/24
03:58 06:00 07:30
WBC
Hgb
Hct
Plt Count 132 D Cancelled
PT 15.2 H Cancelled Cancelled
INR 1.22 Cancelled Cancelled
APTT 38.7 H Cancelled Cancelled
Sodium 141
Potassium 5.1
Chloride 110 H
Carbon Dioxide 20 L
BUN 18
Creatinine 0.9
Glucose 166 H
Calcium 8.7
Total Bilirubin 0.8
AST 28
ALT 14
Alkaline Phosphatase 60
07/06/24 07/06/24 07/06/24
08:10 09:53 13:30
WBC 10.9 H
Hgb 14.4 13.9
Hct 41.6 40.4
Plt Count 125 L 128 L Cancelled
PT 15.8 H Cancelled
INR 1.27 Cancelled
APTT 38.7 H 33.1 Cancelled
Sodium
Potassium
Chloride
Carbon Dioxide
BUN
Creatinine
Glucose
Calcium
Total Bilirubin
AST
ALT
Alkaline Phosphatase
07/06/24 07/06/24 07/06/24
14:01 16:15 19:30
WBC
Hgb Cancelled
Hct Cancelled
Plt Count Cancelled Cancelled
PT Cancelled Cancelled
INR Cancelled Cancelled
APTT Cancelled Pending Cancelled
Sodium
Potassium
Chloride
Carbon Dioxide
BUN
Creatinine
Glucose
Calcium
Total Bilirubin
AST
ALT
Alkaline Phosphatase
07/06/24
20:01
WBC
Hgb Cancelled
Hct Cancelled
Plt Count Cancelled
PT Cancelled
INR Cancelled
APTT Cancelled
Sodium
Potassium
Chloride
Carbon Dioxide
BUN
Creatinine
Glucose
Calcium
Total Bilirubin
AST
ALT
Alkaline Phosphatase
Vital Signs:
Vital Signs
Temp Pulse Resp BP Pulse Ox
98.2 F 71 15 147/56 95
07/06/24 07:00 07/06/24 06:35 07/06/24 06:35 07/06/24 06:08 07/06/24 06:35
I&O
07/05/24 07/06/24 07/07/24
06:59 06:59 06:59
Intake Total 1278 / 1413 350 / 350
Output Total 627 / 677 200 / 200
Balance 651 / 736 150 / 150
Review of Systems
-
All other systems: Reviewed and negative
Physical Exam
-
General: Well Developed, Well Nourished, No Apparent Distress and Comfortable
HEENT: Normocephalic and Atraumatic
Respiratory: Clear to Auscultation
Cardiac: Regular Rhythm and S1/S2
GI: Soft, Nontender and Normal Bowel Sounds
Genito-urinary: No Costovertebral Tender
Musculoskeletal: No Clubbing, No Cyanosis and Other (Bilateral pedal pulses present)
Skin: Warm and Dry
Neuro: Awake, Alert and Oriented
Hematologic / Lymphatic: No Lymphadenopathy
Psych: Calm
--- NOTE | 2024-07-06 11:39 | PTCARENOTE ---
Received pt back from vacular OR @ 0900. L sheath and lysis catheter removed. Heparin/TPA via sheath d/c'd in OR per orders. L groin dressing c/d/i; tissue around dressing soft; no bruising/hematoma noted. Palpable pedal pulses b/l; confirmed w
doppler. Sensation intact. Pt. to remain flat x6H w neurovascular checks per orders- see flow sheet. Initiated heparin gtt per orders- see MAR/ flow sheet. Pt. informed on plan of care; verbalizes understanding. Instructed on how to report care
concerns and call segal w in reach.
--- NOTE | 2024-07-06 14:00 | PTCARENOTE ---
pt. removed self from case monitor; upon entering pt room, pt sitting up in bed; forgetful towards activity restrictions. Assisted back to lying position and reconnected to monitor. L groin site w small amt of sang drainage on dressing. Pt.
activity restrictions reinforced and pt verbalized understanding. Bed alarm activated.
--- NOTE | 2024-07-06 16:16 | PTCARENOTE ---
@ 1500 L groin dressing noted to be saturated w sang drainage. Reinforced w 4x4 and tegaderm. Vascular surgery, Dr. Cummings, made aware and received instruction to change dressing. Old dressing removed; manual pressure held until bleeding ceased
and new clean dressing applied. Sandbag applied s/p new dressing application and pt. remained flat until next neurovascular check @ 1600. @ 1600 dressing remained c/d/i; tissue around site soft; no hematoma noted. Dr. Cummings approved pt to sit
up to eat s/p 1600 site check. Pt. tolerating meal this far. Bed alarm active. Call segal in reach.
[2024-07-06 16:45] LABS: APTT 167.8 Sec (23.4-35.0)
--- NOTE | 2024-07-06 19:43 | PTCARENOTE ---
Handoff report received from off going RN. Patient received on heparin at 1500 unit/hr (15ml/hr). Patient is AAOx3 and able to make his needs known. Denies pain at this time. neurovascular assessment as documented. Pt's left groin incision has small
amount of sanguineous drainage. 4x4 and Tegaderm are in place. Plan of care for the shift reviewed with the patient. Sinus rhythm on the monitor with first degree block. Clear breath sounds. SpO2 at 94% on room air. +BS. Stoner catheter is draining
small amount of sara urine. Left forearm 20 g and rt wrist 20 g IVs are patent and intact. Bed alarm in use. Call segal is within use. Safety measures are in use.
[2024-07-06] MEDS: ZOLOFT 50 MG PO (22:07)
[2024-07-06] MEDS: FLOMAX 0.4 MG PO (22:07)
[2024-07-06] MEDS: ZETIA 10 MG PO (22:07)
[2024-07-06] MEDS: LIPITOR 20 MG PO (22:07)
[2024-07-06 23:53] LABS: APTT 126.3 Sec (23.4-35.0)
[2024-07-07] VITALS (19 sets, daily range): BP systolic 87–136; BP diastolic 47–81; BMI 28.9
--- NOTE | 2024-07-07 00:05 | PTCARENOTE ---
Patient reassessed. No changes from the previous assessment. Heparin gtt decreased to 1400 unit/hr per protocol. The patient repositions himself. Safety measures maintained.
[2024-07-07] MEDS: HEPARIN 25000 UNITS/250 ML IV (03:54)
[2024-07-07 05:41] LABS: INR 1.23; PT 15.4 Sec (11.4-14.6)
[2024-07-07 05:44] LABS: APTT 99.8 Sec (23.4-35.0)
[2024-07-07 06:13] LABS: Blood Urea Nitrogen 18 mg/dl (9-20); Calcium 8.6 mg/dl (8.4-10.2); Carbon Dioxide 27 mmol/L (22-30); Chloride 108 mmol/L (98-107); Estimated Creatinine Clearance 65 ml/min; Glucose 116 mg/dl (70-99); Potassium 4.1 mmol/L (3.5-5.1); Sodium 141 mmol/L (135-145); eGFR > 60.00
[2024-07-07 06:19] LABS: Hematocrit 38.1 % (39.0-52.0); Hemoglobin 12.8 g/dL (13.0-18.0); Mean Corp Hgb Conc. 33.6 g/dL (33.0-37.0); Mean Corpuscular Hgb 28.7 pg (27.0-31.0); Mean Corpuscular Volume 85.4 fL (80.0-94.0); Mean Platelet Volume 10.3 fL (7.4-10.4); Platelet Count 115 10^3/uL (130-400); Red Blood Cell Count 4.46 10^6/uL (4.70-6.10); Red Cell Dist. Width 13.7 % (11.5-14.5); White Blood Cell Count 9.8 10^3/uL (4.8-10.8)
--- NOTE | 2024-07-07 07:46 | W.PN.INTV ---
Today's Communication / Plan
Recommendations
Monitor hemoglobin
Monitor groin closely
Neurovascular checks
Activity per vascular surgery
Heparin drip
If transferred out of ICU then process line operator will sign off
Assessment
-
74-year-old male with a history of PAD, hypertension, hyperlipidemia with recent hospitalization who presented with similar presentation to prior SFA stent thrombosis concern for acute thrombosis of detour bypass and underwent sheath placement,
thrombectomy, and lysis therapy-process line operator consulted for postoperative critical care management 07/06/2024.
PAD status post acute thrombosis of right lower extremity deep to her bypass
Status post suction thrombectomy, lysis and lytic catheter placement 07/05/2024
Scheduled for lysis catheter placement check, possible removal, angiogram and possible IDL/stent/balloon angioplasty 07/06/2024
Mild leukocytosis
Hyperglycemia
Mild metabolic acidosis
Conditions present prior to admission:
Recent hospitalization 06/11-ischemic lower extremity status post detour bypass
Hypertension.
Hyperlipidemia.
CAD/stent/CABG.
TANJA/central sleep apnea.
BPH.
Restless legs.
History of pancreatitis.
PAD status post lower extremity stents/bypass, etc.
Anxiety/depression.
Fatty liver
Cholelithiasis
Bilateral nonobstructing nephrolithiasis
Plan
Postoperative surgical intensive care unit monitoring
Supplemental oxygen as needed
Incentive spirometry
Aspiration precautions
Neuro and vascular checks per protocol
Vascular surgery following-correspondence and operative notes reviewed
Return to OR 07/06/2024 for lysis catheter placement check an angiogram
Heparin drip continues
Some postoperative groin bleeding responding to local pressure
Monitor blood sugar
Insulin supplementation as needed
DVT prophylaxis
Early nutrition
Early mobilization
If the patient remains hemodynamically stable without evidence for bleeding and increase activity and downgrade-if downgraded to telemetry then process line operator will sign off
Patient last saw Dr. Bentley 01/28/2020 for obstructive sleep apnea-AHI 32, desaturation fiorella 84%, AutoPap CPAP 10 cm-recommend follow-up
Reviewed the patient's pertinent medical records including radiographs, microbiology, laboratory evaluations, and discussion with primary team, consultants, pharmacy, nutrition, physical therapy, case management, charge nurse, critical care
nursing, and respiratory therapy.
Diagnostic data:
Chest x-ray 10/20/2023-NAD, left basilar atelectasis
Chest x-ray 05/21/2024-lungs are clear, no evidence for CHF, pneumothorax or pneumonia
Chest x-ray 07/05/2024-subtle faint opacification retrocardiac left lower lobe
CT abdomen and pelvis 05/17/2024-lung bases with subsegmental atelectasis and scarring, right superficial femoral artery stents occluded, long segment chronic occlusion of left superficial femoral artery, cholelithiasis, fatty liver, bilateral
nonobstructing nephrolithiasis
CT abdomen and pelvis 07/05/2024-mild bibasilar subsegmental atelectasis, lungs otherwise clear, right femoral to popliteal bypass graft is occlusion at its origin, popliteal artery is reconstituted via branches of the profunda, left lower extremity
arterial bypass graft is occluded unchanged compared to prior CT, cholelithiasis, pronounced enlargement of the prostate gland
Echocardiogram 08/01/2023-EF 45-50%, mild mitral regurgitation, EF 45-50%
Polysomnography 07/2008: AHI 32. Saturation fiorella was 84%.
Subjective Dataa
Subjective Data
Date of Service:
Date of Service: July 07, 2024
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
Subjective:
Denies any shortness of breath, chest pain or abdominal pain, had some groin bleeding now resolved
Review of Systems
General: Other (Per HPI)
Objective Data
Data Reviewed
Vital Signs / I&O / Oxygen:
Vital Signs
Temp Pulse Resp BP Pulse Ox
98.0 F 64 16 121/63 93
07/07/24 07:00 07/06/24 22:15 07/06/24 22:15 07/06/24 22:11 07/06/24 22:15
Intake and Output
07/06/24 07/07/24 07/08/24
06:59 06:59 06:59
Intake Total 1278 / 1413 1121 / 1121
Output Total 627 / 677 1250 / 1250
Balance 651 / 736 -129 / -129
SaO2 93
Nasal Cannula flow liters per 2
minute
Physical Exam
General: Respiratory Distress (n) and Comfortable
HEENT: Normocephalic, Anicteric and Moist Mucous Membranes
Cardiovascular: Regular Rhythm and Murmur
Respiratory: Crackles (n), Rhonchi, Non-Labored Respirations, Accessory Resp Muscle Use (n) and Stridor
GI: Soft, Non Distended and Non Tender
Neurology: Awake, Alert and No Motor Deficits
Skin: Warm, Good Color, Cyanosis (n), Jaundice (n) and Rash
Labs/Micro/Reports
Lab Data
07/07/24 05:18
07/07/24 05:18
Laboratory Results
07/06/24 07/06/24 07/06/24
06:00 08:10 09:53
PT Cancelled 15.8 H
INR Cancelled 1.27
APTT 38.7 H 33.1
07/06/24 07/06/24 07/06/24
14:01 16:10 20:01
PT Cancelled Cancelled
INR Cancelled Cancelled
APTT Cancelled 167.8 H* Cancelled
07/06/24 07/07/24
23:29 05:18
PT 15.4 H
INR 1.23
APTT 126.3 H 99.8 H
[2024-07-07] MEDS: ASPIR LOW (ENTERIC COATED) 81 MG PO (09:11)
--- NOTE | 2024-07-07 09:30 | PTCARENOTE ---
Received pt. @ change of shift. AAOx3, denies pain. SR/SB w 1st degree AVB on monitor. SpO2 96% on RA. +BS, abd soft/round. Tolerating meals. Stoner catheter w cloudy/sara urine. L groin puncture site saturated. Dr. Cummings made aware;
further instruction to change dressing. L groin site redressed and sandbag applied @ 0900. Neurovascular checks maintained per orders- see flow sheet. #20 R wrist w heparin gtt infusing- see flow sheet. Pt. able to MILLER/shift weight in bed;
bedrest until seen by vascular surgery. Call luzma w in reach.
--- NOTE | 2024-07-07 09:39 | CM ---
Skyler was admitted to with (R) foot pain; prior ICU stay about 6 weeks ago with RLE ischemia. Pt in OR 07/05 vascular surgery LLE arteriogram, suction thrombectomy, lytic cath placement and 07/06 for possible stent/balloon angioplasty.
Patient is AAOx3; lives with his in a 2 story home with no entry steps; master bedroom on first floor with shower and bathrub; and will return home with his at discharge.
CM to follow for discharge planning needs.
PCP: Nicolas Escobar
Pharmacy: [facility] [place]
--- NOTE | 2024-07-07 09:59 | W.PN.HOSP.TC ---
Addendum entered and electronically signed by Michael Becker MD 07/07/24 12:01:
I saw and evaluated the patient. I reviewed the resident�s note and agree with findings and plan as documented in the resident�s note.
No new complaints.
Gen: NAD, AAOx3.
Eyes: EOMI, PERRLA, no scleral icterus.
Neck: supple.
CV: RRR, +S1/S2, no m/r/g.
Resp: CTAB, no rales, wheezes, or rhonchi.
Abd: +BS, soft, NT, ND
Skin: No rashes.
Vasc: 2+ R PT pulse
Neuro: CN 2-12 intact, non-focal.
Psych: Normal mood and affect.
Ischemic right lower extremity:
-s/p LLE arteriogram, suction thrombectomy, lytic cath placement on 07/05/24
-stop heparin gtt and transition back to Xarelto (20mg daily)
-cont ASA/statin
-discussed with vascular
Original Note:
Today's Communication/Plan
-
Discuss with vascular surgery regarding patient mobilization and follow-up plan
Discussed with patient anticoagulant options
Assessment / Plan
Assessment / Plan
Impression
A 74-year-old male with acute thrombosis of right lower extremity detour bypass. Admitted for lysis catheter placement check, possible removal, angiogram, possible IVUS/stent/balloon angioplasty.
Assessment and plan
Acute thrombosis of right lower extremity detour bypass
Patient has history of peripheral arterial disease with superficial femoral artery stenting done 11 years ago
Previous bilateral occluded SFA stents
Recent percutaneous transmural artery bypass right lower extremity
Patient was on Xarelto for anticoagulation
Presented with acute pain in right leg and foot, on workup occluded detour bypass in the right lower extremity.
Suction thrombectomy and lysis catheter placement done
Procedure completed uneventfully, patient feels well
The right lower extremity dorsalis pedis artery palpable now but was not appreciated at the time of admission
Patient Currently on heparin for anticoagulation
Vitally stable
Discuss with vascular surgery regarding recurrent thrombosis of stent/graft
OTHER
Previous bilateral occluded SFA stents
Recent percutaneous transmural artery bypass right lower extremity
-Continue aspirin
CAD status post CABG-----Continue aspirin
Essential hypertension
Hypercholesterolemia----Continue statin, Zetia
Anxiety/depression----Continue sertraline
BPH-----Continue tamsulosin
Full code
DVT prophylaxis�heparin drip
Anticipated Discharge: 24 - 48 hours
Subjective/Interval History
-
Date of Service: July 07, 2024
Complains of some mild bleeding at the femoral site used for catheter advancement on the left side. Otherwise feels well and pain-free
Objective Data
-
Labs:
Laboratory Results
07/06/24 07/07/24 07/07/24
23:29 05:18 12:00
WBC 9.8
Hgb 12.8 L
Hct 38.1 L
Plt Count 115 L
PT 15.4 H
INR 1.23
APTT 126.3 H 99.8 H Pending
Sodium 141
Potassium 4.1
Chloride 108 H
Carbon Dioxide 27
BUN 18
Creatinine 1.0
Glucose 116 H
Calcium 8.6
Vital Signs:
Vital Signs
Temp Pulse Resp BP Pulse Ox
98.0 F 64 16 121/63 93
07/07/24 07:00 07/06/24 22:15 07/06/24 22:15 07/06/24 22:11 07/06/24 22:15
I&O
07/06/24 07/07/24 07/08/24
06:59 06:59 06:59
Intake Total 1278 / 1413 1121 / 1135 42 / 42
Output Total 627 / 677 1250 / 1250
Balance 651 / 736 -129 / -115 42 / 42
Review of Systems
-
All other systems: Reviewed and negative
Physical Exam
-
General: Well Developed, Well Nourished, Comfortable and Conversant
HEENT: Anicteric and PERRLA
Respiratory: Clear to Auscultation
Cardiac: Regular Rhythm and S1/S2
GI: Soft, Nontender and Normal Bowel Sounds
Genito-urinary: No Costovertebral Tender
Musculoskeletal: No Clubbing, No Cyanosis and No Edema
Skin: Warm and Dry
Neuro: Awake, Alert, Oriented and No Motor Deficits
Hematologic / Lymphatic: No Lymphadenopathy
Psych: Calm
--- NOTE | 2024-07-07 11:20 | W.PN.VS ---
Today's Communication / Plan
-
pressure for puncture site ooze
Assessment/Plan
-
Assessment: 74 year old male with acute thrombosis of RLE DETOUR bypass
Plan:
s/p lysis, now with pulse
oob ambulate
stop hep gtt and start xarelto
follow puncture site ooze
Subjective Data
-
Date of Service: July 07, 2024
doing well
no pain in foot
Objective Data
-
Vital Signs
Temp Pulse Resp BP Pulse Ox
97.8 F 64 16 121/63 93
07/07/24 11:00 07/06/24 22:15 07/06/24 22:15 07/06/24 22:11 07/06/24 22:15
Intake and Output
07/06/24 07/07/24 07/08/24
06:59 06:59 06:59
Intake Total 1278 / 1413 1121 / 1135 56 / 56
Output Total 627 / 677 1250 / 1250 200 / 200
Balance 651 / 736 -129 / -115 -144 / -144
Intake:
IV fluids (Total) 1278 / 1413 1121 / 1135 56 / 56
HEPARIN 73346 UNITS/250 ML 25, 50 / 55 10 / 10
000 units In 250 ml @ 500 UNITS
/HR 5 mls/hr ART SHEATH .Q24H
[facility] Rx#:[id number]
Normosol-R/Plasmalyte-A 1,000 720 / 800 720 / 720
ml @ 80 mls/hr IV .[id number] [facility]
Rx#:[id number]
Nss 1,000 ml @ 46 mls/hr INF 460 / 506 92 / 92
CATH .[id number] [facility] Rx#:[id number]
TPA 48 / 52 8 / 8
heparin 291 / 305 56 / 56
Output:
Urine, Stoner 627 / 677 1250 / 1250 200 / 200
Lab Results
07/07/24 05:18
07/07/24 05:18
Calcium 8.6 mg/dl (8.4-10.2) 07/07/24 05:18
Phosphorus 2.7 mg/dl (2.5-4.5) 07/06/24 03:58
Magnesium 1.9 mg/dl (1.6-2.3) 07/06/24 03:58
Total Bilirubin 0.8 mg/dl (0.2-1.3) 07/06/24 03:58
Direct Bilirubin Cancelled 07/06/24 06:00
AST 28 U/L (17-59) 07/06/24 03:58
ALT 14 U/L (0-50) 07/06/24 03:58
Alkaline Phosphatase 60 U/L (38-126) 07/06/24 03:58
Total Protein 6.0 g/dl (6.3-8.2) L 07/06/24 03:58
Albumin 3.7 g/dl (3.5-5.0) 07/06/24 03:58
Physical Exam
-
+ PT pulse right foot
slight ooze from puncture site
no hematoma
[2024-07-07] MEDS: XARELTO 20 MG PO (12:02)
--- NOTE | 2024-07-07 13:12 | PTCARENOTE ---
Stoner catheter removed per orders; pt. DTV @ 1630. Heparin gtt of per orders @ 1200; admin first dose of PO Xarelto- see MAR. Dr. Cummings to bedside this AM to assess pt. Received instruction for pt to be OOB. Pt. assisted x2 OOB to chair @
1200; denies dizziness/lightheadedness. Tolerating chair position. Small amt of drainage from L groin puncture site on new dressing from this AM. Neurovascular checks maintained per orders- see flow sheet. Chair alarm active. Call segal in
reach.
--- NOTE | 2024-07-07 15:00 | PTCARENOTE ---
Pt. noted to have multiple episodes of bradycardia into low 40's. Asymptomatic, immediately self resolving w HR into high 50's, low 60's. Dr. Reid aware.
--- NOTE | 2024-07-07 17:09 | PTCARENOTE ---
Addendum entered by Chloe Guevara RN 07/07/24 17:11:
@1600*
Original Note:
@ 1500, L groin dressing noted to be saturated again. Pressure held until bleeding ceased and new clean dressing applied. Assisted back into bed and sandbag reapplied over L groin dressing. Neurovas checks maintained. remains @ bedside.
Call luzma latham in reach.
--- NOTE | 2024-07-07 21:13 | PTCARENOTE ---
Assumed care of pt at 1900. Pt is A/O x4, pleasant and cooperative with care. No c/o pain. Left groin site check and neurovascular check done in tandem with offgoing RN. At start of shift pt had sandbag over left groin site. So far dressing has been
C/D/I. Sandbag removed shortly after 1999. See post cath flowsheet for neurovascular assessment details, see nursing shift assessment flowsheet for full physical assessment details. SB 50s on monitor. SpO2 92-93% on RA. Call segal and personal items
within reach.
[2024-07-07] MEDS: ZETIA 10 MG PO (21:54)
[2024-07-07] MEDS: ZOLOFT 50 MG PO (21:54)
[2024-07-07] MEDS: LIPITOR 20 MG PO (21:54)
[2024-07-07] MEDS: FLOMAX 0.4 MG PO (21:54)
[2024-07-08] VITALS (13 sets, daily range): BP systolic 105–126; BP diastolic 47–104; BMI 28.6
--- NOTE | 2024-07-08 04:49 | PTCARENOTE ---
Physical assessment unchanged. Left groin dressing remains C/D/I. Pulses weakly palpable, verified with doppler and strong signals present for b/l DP and PT pulses. See post cath flowsheet for futher details. SB 50s on monitor. Pt able to ambulate
with steady gait to bathroom with only standby assistance.
[2024-07-08 04:58] LABS: Hematocrit 37.2 % (39.0-52.0); Hemoglobin 13.1 g/dL (13.0-18.0); Mean Corp Hgb Conc. 34.6 g/dL (33.0-37.0); Mean Corpuscular Volume 86.9 fL (80.0-94.0); Platelet Count 110 10^3/uL (130-400); Red Blood Cell Count 4.36 10^6/uL (4.70-6.10); Red Cell Dist. Width 13.7 % (11.5-14.5); White Blood Cell Count 7.5 10^3/uL (4.8-10.8)
[2024-07-08 05:41] LABS: Blood Urea Nitrogen 15 mg/dl (9-20); Calcium 8.5 mg/dl (8.4-10.2); Carbon Dioxide 26 mmol/L (22-30); Chloride 107 mmol/L (98-107); Estimated Creatinine Clearance 72 ml/min; Glucose 114 mg/dl (70-99); Potassium 4.2 mmol/L (3.5-5.1); Sodium 143 mmol/L (135-145); eGFR > 60.00
[2024-07-08] MEDS: ASPIR LOW (ENTERIC COATED) 81 MG PO (07:19)
--- NOTE | 2024-07-08 07:28 | PTCARENOTE ---
report received, assessments per work list. patient denies pain, left groin dressing intact, no signs bleeding. ecchymosis around dressing unchanged per maintenance technician 2nd shift [email or web address]. doppler distal pulses. site soft. monitor nsr, lungs clear. assisted to
bathroom, gait steady. call segal in reach
--- NOTE | 2024-07-08 09:12 | W.PN.VS ---
Today's Communication / Plan
-
See below.
Assessment/Plan
-
Assessment: 74 year old male with acute thrombosis of RLE DETOUR bypass
Plan:
Continue xarelto 20mg PO once daily
Hematology as an outpatient
Ok for discharge from a vascular surgery perspective
Subjective Data
-
Date of Service: July 08, 2024
Patient seen and examined at bedside, offers no complaints. Patient kept overnight for additional observation of scant bleeding noted at left groin puncture site, patient endorses that puncture site has been dry all night and he has had no
difficulties with ambulation. Reports eagerness for discharge to home.
Objective Data
-
Vital Signs
Temp Pulse Resp BP Pulse Ox
98.0 F 55 14 110/62 95
07/08/24 08:45 07/08/24 07:16 07/08/24 07:16 07/08/24 07:16 07/08/24 07:23
Intake and Output
07/07/24 07/08/24 07/09/24
06:59 06:59 06:59
Intake Total 1121 / 1135 550 / 550 120 / 120
Output Total 1250 / 1250 1125 / 1125
Balance -129 / -115 -575 / -575 120 / 120
Intake:
Oral fluids 480 / 480 120 / 120
IV fluids (Total) 1121 / 1135 70 / 70
HEPARIN 40382 UNITS/250 ML 25, 10 / 10
000 units In 250 ml @ 500 UNITS
/HR 5 mls/hr ART SHEATH .Q24H
[facility] Rx#:[id number]
Normosol-R/Plasmalyte-A 1,000 720 / 720
ml @ 80 mls/hr IV .[id number] [facility]
Rx#:[id number]
Nss 1,000 ml @ 46 mls/hr INF 92 / 92
CATH .[id number] [facility] Rx#:[id number]
TPA
heparin 291 / 305 70 / 70
Output:
Urine, Stoner 1250 / 1250 200 / 200
Urine, Voided 925 / 925
Other:
Number of approximated MODERATE 1
amounts of urine
Lab Results
07/08/24 04:34
07/08/24 04:35
Calcium 8.5 mg/dl (8.4-10.2) 07/08/24 04:35
Phosphorus 2.7 mg/dl (2.5-4.5) 07/06/24 03:58
Magnesium 1.9 mg/dl (1.6-2.3) 07/06/24 03:58
Total Bilirubin 0.8 mg/dl (0.2-1.3) 07/06/24 03:58
Direct Bilirubin Cancelled 07/06/24 06:00
AST 28 U/L (17-59) 07/06/24 03:58
ALT 14 U/L (0-50) 07/06/24 03:58
Alkaline Phosphatase 60 U/L (38-126) 07/06/24 03:58
Total Protein 6.0 g/dl (6.3-8.2) L 07/06/24 03:58
Albumin 3.7 g/dl (3.5-5.0) 07/06/24 03:58
Physical Exam
-
AAOx3
No tachypnea
No tachycardia
Abdomen soft, non-tender, non-distended
Left Groin site with no bleeding, dressing CDI, no evidence of hematoma, all surrounding compartments soft
Right calf soft, motor and sensation intact, foot warm
Right Pt palpable, foot warm
--- NOTE | 2024-07-08 11:48 | PTCARENOTE ---
reassessed, ambulated in hallway with assist of one. per vascular, patient is stable to discharge. tiger text to hospitalist, updated and aware
--- NOTE | 2024-07-08 12:07 | CM ---
CM following re: discharge planning.
Reviewed pt's chart, met with pt and pt's spouse at bedside.
Pt is admitted to with (R) foot pain went OR 07/05 vascular surgery LLE arteriogram, suction thrombectomy, lytic cath placement and 07/06 for possible stent/balloon angioplasty.Per Vascular Surgery pt will be discharge home this afternoon. Both
pt and his spouse are aware, expressed their agreement. IMM reviewed, placed on chart, pt has a copy.
Patient is AAOx3, lives with spouse in a 2 story home with no entry steps; master bedroom on first floor with shower and bathtub; has 2 supportive children and 2 stepchildren. Pt described himself as independent in all areas [employer], drives. No DME, VN
or SNF history.
PCP: Nicolas Escobar
Pharmacy: [facility] in [place]
D/C plan: home no needs. Spouse to transport.
--- NOTE | 2024-07-08 12:54 | W.PN.HOSP.TC ---
Today's Communication/Plan
-
xarelto
US as outpatient
f/u heme, vascular, cards, pcp outpatient
Assessment / Plan
Assessment / Plan
Impression
A 74-year-old male with acute thrombosis of right lower extremity detour bypass. Admitted for lysis catheter placement check, possible removal, angiogram, possible IVUS/stent/balloon angioplasty.
Assessment and plan
Acute thrombosis of right lower extremity detour bypass
Patient has history of peripheral arterial disease with superficial femoral artery stenting done 11 years ago
Previous bilateral occluded SFA stents
Recent percutaneous transmural artery bypass right lower extremity
Patient was on Xarelto for anticoagulation
s/p LLE arteriogram, suction thrombectomy, lytic cath placement on 07/05/24
The right lower extremity dorsalis pedis artery palpable now but was not appreciated at the time of admission
-stop heparin gtt and transition back to Xarelto (20mg daily)
-cont ASA/statin
Hematology as outpatient
F/u Vascular, Cardiology outpatient
Vitally stable
OTHER
Previous bilateral occluded SFA stents
Recent percutaneous transmural artery bypass right lower extremity
-Continue aspirin
CAD status post CABG-----Continue aspirin
Essential hypertension
Hypercholesterolemia----Continue statin, Zetia
Anxiety/depression----Continue sertraline
BPH-----Continue tamsulosin
Full code
DVT prophylaxis�xarelto
More than 30 minutes spent in discharge including
Final examination of the patient
Summarizing hospital stay
Instructions for continuing care to all relevant caregivers
Preparation of discharge records, prescriptions, and referral forms
Total time spent (35 in minutes):
Anticipated Discharge: Today
Subjective/Interval History
-
Date of Service: July 08, 2024
no acute events
Objective Data
-
Labs:
Laboratory Results
07/08/24 07/08/24
04:34 04:35
WBC 7.5
Hgb 13.1
Hct 37.2 L
Plt Count 110 L
Sodium 143
Potassium 4.2
Chloride 107
Carbon Dioxide 26
BUN 15
Creatinine 0.9
Glucose 114 H
Calcium 8.5
Vital Signs:
Vital Signs
Temp Pulse Resp BP Pulse Ox
98.1 F 62 14 125/104 94
07/08/24 12:25 07/08/24 12:00 07/08/24 12:00 07/08/24 12:00 07/08/24 12:00
I&O
07/07/24 07/08/24 07/09/24
06:59 06:59 06:59
Intake Total 1121 / 1135 550 / 550 360 / 360
Output Total 1250 / 1250 1125 / 1125
Balance -129 / -115 -575 / -575 360 / 360
Review of Systems
-
History Source: Patient
All other systems: Not reviewed unless documented
Physical Exam
-
General: Well Developed, Well Nourished, Comfortable and Conversant
HEENT: Anicteric and PERRLA
Respiratory: Clear to Auscultation
Cardiac: Regular Rhythm and S1/S2
GI: Soft, Nontender and Normal Bowel Sounds
Genito-urinary: No Costovertebral Tender and Other (Left Groin site with no bleeding, dressing CDI, no evidence of hematoma, all surrounding compartments soft)
Musculoskeletal: No Clubbing, No Cyanosis and No Edema
Skin: Warm and Dry
Neuro: Awake, Alert, Oriented and No Motor Deficits
Hematologic / Lymphatic: No Lymphadenopathy
Psych: Calm
Data Reviewed
-
Diagnostic Radiology: Image personally visualized and interpreted and Report Reviewed by me
Labs: Labs Reviewed by me
--- NOTE | 2024-07-08 13:00 | W.DS.TRANS ---
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
-
Discharge Instructions:
Discharge Diagnosis/Procedures Right acute occlusion of bypass with lysis
Diet As tolerated
Activity No strenuous activity
Driving Restrictions No driving for 48 hours
Bathing Restrictions OK to Shower
Others Tests Your follow up arterial ultrasound is on
2023 at 11am here at [facility]
Instructions:
Stand-Alone Forms: DC Instr - Vascular OR
Changes to Home Medications: Yes
Discharge Medications:
DC Medications w/original date entered in [employer]
coQ10 (ubiquinol) 100 mg capsule 300 mg PO HS Supplement 05/02/23
ezetimibe 10 mg tablet (Zetia) 10 mg PO HS High Cholesterol 05/02/23
tamsulosin 0.4 mg capsule 0.4 mg PO HS Urinary Issue 05/02/23
sertraline 50 mg tablet 50 mg PO HS Depression 05/17/24
aspirin 81 mg tablet,delayed release 81 mg PO DAILY Blood Clot Prevention/Tx 07/05/24
diphenhydramine HCl 25 mg capsule (ZzzQuil) 25 mg PO HSPRN PRN sleep 07/05/24
docusate sodium 100 mg capsule (Stool Softener) 100 mg PO DAILYPRN PRN constipation 07/05/24
simvastatin 40 mg tablet 40 mg PO HS High Cholesterol 07/05/24
rivaroxaban 20 mg tablet (Xarelto) 20 mg PO QPM #90 tabs 07/08/24
Home Medication Changes
rivaroxaban 20 mg tablet (Xarelto) 20 mg PO QPM #90 tabs 07/08/24
Pending Results: No
== END 2024-07-08 13:48 | disposition home or self-care (01) | DRG 271 ==
LOC: ICU 18:03
PROVIDERS: Nurse Practitioner; Nurse Practitioner Family; Physician Assistant; Surgery; ADMITTING PHYSICIAN Hospitalist; ATTENDING PHYSICIAN Internal Medicine; CONSULT PHYSICIAN Internal Medicine Critical Care Medicine; EMERGENCY PHYSICIAN Emergency Medicine; FAMILY PHYSICIAN Family Medicine
PROC: 04HM33Z Insertion of Infusion Device into Right Popliteal Artery, Percutaneous Approach (ICD-10-PCS; 2024-07-05)
PROC: 04CM3ZZ Extirpation of Matter from Right Popliteal Artery, Percutaneous Approach (ICD-10-PCS; 2024-07-05)
PROC: 3E05317 Introduction of Other Thrombolytic into Peripheral Artery, Percutaneous Approach (ICD-10-PCS; 2024-07-05)
PROC: 04PY33Z Removal of Infusion Device from Lower Artery, Percutaneous Approach (ICD-10-PCS; 2024-07-06)
DX: T82.868A Thrombosis due to vascular prosthetic devices, implants and grafts, initial encounter (principal); E87.20 Acidosis, unspecified; I74.3 Embolism and thrombosis of arteries of the lower extremities; I10 Essential (primary) hypertension; I25.10 Atherosclerotic heart disease of native coronary artery without angina pectoris; G47.33 Obstructive sleep apnea (adult) (pediatric); G25.81 Restless legs syndrome; E78.00 Pure hypercholesterolemia, unspecified; F32.A Depression, unspecified; F41.9 Anxiety disorder, unspecified; D72.829 Elevated white blood cell count, unspecified; K76.0 Fatty (change of) liver, not elsewhere classified; N40.0 Benign prostatic hyperplasia without lower urinary tract symptoms; I70.211 Atherosclerosis of native arteries of extremities with intermittent claudication, right leg; Z95.5 Presence of coronary angioplasty implant and graft; Z95.1 Presence of aortocoronary bypass graft; Z87.891 Personal history of nicotine dependence; Z88.5 Allergy status to narcotic agent; Z79.82 Long term (current) use of aspirin; Z79.01 Long term (current) use of anticoagulants; Z79.02 Long term (current) use of antithrombotics/antiplatelets; Y83.2 Surgical operation with anastomosis, bypass or graft as the cause of abnormal reaction of the patient, or of later complication, without mention of misadventure at the time of the procedure
CPT/HCPCS: 34203; 36247; 37211; 37214; 71045; 75635; 80048; 80053; 83735; 84100; 85014; 85018; 85025; 85027; 85049; 85384; 85610; 85730; 93005; 96365; 96366; 99285; C1757; C1760; C1769; C1887; C1894; J2997; Q9967

== ENCOUNTER 2024-07-09 10:22 | Outpatient (RCR) | payer MEDICARE, SELFPAY ==
[2024-07-09 10:52] VITALS: BP 141/75
[2024-07-09] MEDS: LEQVIO 284 MG SC (11:02)
== END 2024-07-10 08:14 | disposition home or self-care (01) ==
LOC: OID 10:22
PROVIDERS: ATTENDING PHYSICIAN Nurse Practitioner; FAMILY PHYSICIAN Family Medicine
DX: I25.10 Atherosclerotic heart disease of native coronary artery without angina pectoris (principal); I73.9 Peripheral vascular disease, unspecified; I25.5 Ischemic cardiomyopathy; E78.5 Hyperlipidemia, unspecified
CPT/HCPCS: 96372; J1306

== ENCOUNTER → 2024-07-19 10:39 | Outpatient (REF) | payer MEDICARE, SELFPAY | LOC: RAD 10:39 | PROVIDERS: ATTENDING PHYSICIAN Surgery Vascular Surgery; FAMILY PHYSICIAN Family Medicine | DX: I73.9 Peripheral vascular disease, unspecified (principal) | CPT/HCPCS: 93922; 93925 ==

== ENCOUNTER 2024-07-22 18:40 | Inpatient (IN) | payer MEDICARE, SELFPAY ==
[2024-07-22 15:43] VITALS: BP 161/89
[2024-07-22 17:05] LABS: % Basophils 0.4 % (0-2); % Eosinophils 1.6 % (0-6); % Immature Granulocytes 0.2 % (0-0.5); % Lymphocytes 22.2 % (20.5-51.1); % Monocytes 6.3 % (1.7-9.3); % Neutrophils 69.3 % (42.2-75.2); Absolute Eosinophils 0.2 10^3/uL (0-0.7); Absolute Lymphocytes 2.1 10^3/uL (1.2-3.4); Absolute Monocytes 0.6 10^3/uL (0.1-0.6); Absolute Neutrophils 6.6 10^3/uL (1.4-6.5); Hematocrit 45.9 % (39.0-52.0); Hemoglobin 15.3 g/dL (13.0-18.0); Mean Corp Hgb Conc. 33.3 g/dL (33.0-37.0); Mean Corpuscular Hgb 29.5 pg (27.0-31.0); Mean Corpuscular Volume 88.6 fL (80.0-94.0); Mean Platelet Volume 9.3 fL (7.4-10.4); Nucleated Red Blood Cells % 0 % (-); Platelet Count 181 10^3/uL (130-400); Red Blood Cell Count 5.18 10^6/uL (4.70-6.10); Red Cell Dist. Width 13.5 % (11.5-14.5); White Blood Cell Count 9.5 10^3/uL (4.8-10.8)
[2024-07-22 17:07] VITALS: BP 130/69
[2024-07-22 17:20] LABS: INR 1.21; PT 15.1 Sec (11.4-14.6)
--- NOTE | 2024-07-22 17:20 | ED.GENMED ---
History of Present Illness
General
Chief Complaint: DVT/Possible Blood Clot
Source: patient, records and physician
Exam Limitations: none
Time Seen by Provider: 07/22/24 16:40
Nursing documentation reviewed up to this point in time: agreed with
History of Present Illness
History of Present Illness:
74-year-old male with a past medical history of hypertension, hyperlipidemia, CAD status post bypass, PVD status post stenting and bypass in the right groin who presents to the emergency department after being found to have occluded bypass graft in
the right groin. Patient had occluded femoral artery that was stented in the past, stent found to be occluded over [place] and at that point he had a bypass graft. He then returned a little over 2 weeks ago with right leg pain and was found to
have occlusion of his bypass graft. He was admitted on heparin and had catheter directed thrombolysis and suction thrombectomy (07/05/2024). He says that he had been doing well since this procedure and has been tolerating activity quite well going
for daily walks. He has been on Xarelto and has been compliant. He says that today he went to play pickle ball and while he was playing had cramping in his calf and pain radiating to the dorsum of the foot which is his typical claudication
symptoms in the right leg. He went for an outpatient ultrasound which showed occlusion of his graft once again. Referred to the ER for assessment. He denies any other complaints. He says he has no pain at rest only with activity earlier today;
total duration of pain was about 2 hours before it started to tim.
Past History
Past History
ED Past Medical History: CAD, HTN and Hypercholesterolemia
ED Past Surgical History: Cardiac, Orthopedic and Other (Vascular surgery)
Social History
Tobacco: Former smoker
Alcohol: None
Drug: None
Personal:
Living: with family
Employment: Employed
Review of Systems
Review of Systems
All Other Systems: ROS reviewed and negative except as documented in HPI and ROS
Constitutional: Denies fever
Respiratory: Denies trouble breathing
Cardiac: Denies chest pain
ABD/GI: Denies abdominal pain
Musculoskeletal: Reports muscle pain
Neurological: Denies headache
Phy Exam
Physical Exam
Physical Exam:
General: Awake, alert, oriented x3 and very pleasant; no acute distress
Head: Normocephalic, atraumatic
Eyes: Conjunctiva normal
Throat: Airway intact, handling secretions
Neck: Trachea midline, supple without meningismus
Lungs: Breathing comfortably with no distress, no excess or muscle use, no cyanosis
Heart: Regular rate and rhythm
Neuro: Cranial nerves grossly intact, speech fluid
Skin: no rash
Extremities: Patient has some very slight paleness of the distal right leg compared to the left; both legs and feet are warm to the touch; he has a palpable left DP pulse, also has a faintly palpable right DP pulse but diminished when compared to
the left; strong palpable femoral pulses bilaterally; no significant edema in the legs
Scores
Heart Failure Risk
Heart Failure Risk Score: Not Applicable
Heart Score for Chest Pain Patients
STEMI patient?: Not applicable
Withdrawal Assessment of Alcohol
Withdrawal Assessment Completed?: Not applicable
Course
Orders/Labs/Results
Orders:
Orders
07/22/24 16:51
Vascular Surgery Consult Urgent
Consulting Provider: Lizandro Stoner III
Was physician already notified: Yes
07/22/24 16:59
Complete Blood Count/With Diff Urgent
Comprehensive Metabolic Panel Urgent
PTT Urgent
Prothrombin Time Urgent
07/22/24 17:10
Heparin 7,100 units IV NOW STA
Pharmacy Request to Place See Dose Instructions PO NOW STA
Discontinue all Active Warfarin orders?: Yes
Nursing to Place Non Medication Order As Directed
Physician Order: PTT 6 hours after initial start of Heparin infusion
07/22/24 17:15
Heparin 77701 Units/250 ml 25,000 units in 250 ml IV PER PROTOCOL
Weight to be used for heparin protocol in kilograms (kg):: 89.3
Protocol:: DVT/PE
PTT Goal Range to be used:: PTT 73 to 111 seconds
Order type:: Initial
INITIAL Infusion Dose (UNITS/KG/hr) & then follow protocol:: 18 units/kg/hr
Infusion Dose in UNITS/hr & then follow protocol (UNITS/hr):: 1,600
INFUSION RATE in mL/hr & then follow protocol (mL/hr):: 16
For DVT/PE algorithm, re-bolus for low PTT?: Yes
PTT less than or equal to 64 seconds:: Re-bolus 80 units/kg (max 10,000units). Increase by 400 units/hr
(+ 4mL/hr)
PTT 64.1 to 72.9 seconds:: Re-bolus 40 units/kg (max 5,000 units). Increase by 200 units/hr
(+ 2mL/hr)
PTT 73 to 111 seconds:: Target Range. No change in rate.
PTT 111.1 to 130.9 seconds:: Decrease rate by 200 units/hr (- 2 mL/hr)
PTT 131 to 199.9 seconds:: HOLD for 1 hr. Then decrease by 300 units/hr (- 3mL/hr)
PTT greater than or equal to 200 seconds:: HOLD for 2 hrs & Notify Provider. Then decrease by 400 units/hr
(- 4mL/hr)
Lab follow-up:: Each change, PTT q6h until 2 consecutive are therapeutic. Then
PTT daily.
07/22/24 18:[address] See Dose Instructions IV DIRECTED
Abnormal Lab Results
07/22/24
16:59
Absolute Neuts (auto) 6.6 H 10^3/uL
(1.4-6.5)
07/22/24 16:59
Vital Signs
Initial and Last Documented VS:
Initial Vital Signs
Temp Pulse Resp BP Pulse Ox
36.8 C 64 16 161/89 96
07/22/24 15:43 07/22/24 15:43 07/22/24 15:43 07/22/24 15:43 07/22/24 15:43
Last Documented Vital Signs
Temp Pulse Resp BP Pulse Ox
36.8 C 64 16 161/89 96
07/22/24 15:43 07/22/24 15:43 07/22/24 15:43 07/22/24 15:43 07/22/24 15:43
MDM/Problems Addressed
Differential Diagnosis Includes:
Bypass graft occlusion
MDM/Problems Addressed:
74-year-old male presents with vascular bypass graft occlusion as described above. Recently admitted with similar. Hypertensive otherwise normal vitals. Physical exam as above�he does have faintly palpable pulse distal right lower extremity
suggesting at least some collateral flow. He has no pain at rest. Reviewed ultrasound from earlier shows complete occlusion of the bypass graft. Placed on IV labs sent off including a CBC and a CMP which were unremarkable. Coags sent off. Case
discussed with vascular surgery�will initiate heparin infusion (last dose of Xarelto was last night) and admit for continued management. Case discussed with hospitalist for admission.
Chronic conditions affecting care:
Peripheral vascular disease
Acute Exacerbation and/or Progression of Chronic Illness:
Acutely hypertensive with no signs or symptoms of hypertensive emergency�no indication for emergent antihypertensive treatment at this point
Acute Exacerbation and/or Progression of Chronic Illness: HTN
*Radiology
Radiology exam reviewed: radiology read reviewed
*Pulse Oximetry
Patient hypoxic: no
*Critical Care Note
Total Time (30-74mins, 75-104mins- exclusive of procedures): Not Applicable
Data Reviewed
Review of Other/Old Records Reveals: Labs, Records, Radiology Studies, Operative Reports and Discharge Summary
Source: patient, records and physician
Patient Management
Discussion with other providers: Hospitalist (Discussed with hospitalist) and [employer] (Discussed with vascular surgery)
Escalation/DeEscalation of care consider admission/obs:
Admission indicated
ED Attending Note
-
Portions of this chart may have been created with voice recognition software.� Occasional wrong word or��sound alike� substitutions may have occurred due to the inherent limitations of voice recognition software.
Discharge Plan
Departure
Patient Disposition: Admit
Date of Disposition: 07/22/24
Time of Disposition: 17:19
Admit to doctor: Nya
Presentation/result/management discussed w/ accepting MD/DO: Hospitalist
Discharge Problem:
Femoral-popliteal bypass graft occlusion, right
Prescriptions:
No Action
ezetimibe [Zetia] 10 mg Tablet
10 mg PO HS
coQ10 (ubiquinol) 100 mg Capsule
300 mg PO HS
tamsulosin 0.4 MG capsule
0.4 mg PO HS
sertraline 50 mg Tablet
50 mg PO HS
aspirin 81 mg Tablet,Delayed Release (Dr/Ec)
81 mg PO DAILY
simvastatin 40 mg Tablet
40 mg PO HS
diphenhydramine HCl [ZzzQuil] 25 mg Capsule
25 mg PO HSPRN PRN (Reason: sleep)
docusate sodium [Stool Softener] 100 mg Capsule
100 mg PO DAILYPRN PRN (Reason: constipation)
Xarelto 20 mg Tablet
20 mg PO QPM Qty: 90 0RF
Interventions
Interventions:
*Risk Screen - Suicide Last Done: 07/22/24 15:43
*General Assessment Last Done: 07/22/24 15:43
*Neglect/Abuse Screening Last Done: 07/22/24 15:43
*ED COVID-19 Vaccine History Last Done: 07/22/24 15:43
Discharge Date and Time
Print Language: ZIMBABWEAN
[2024-07-22 17:21] LABS: APTT 31.1 Sec (23.4-35.0)
[2024-07-22 17:24] LABS: ALT (SGPT) 13 U/L (0-50); AST (SGOT) 25 U/L (17-59); Albumin 4.5 g/dl (3.5-5.0); Alkaline Phosphatase 77 U/L (38-126); Blood Urea Nitrogen 15 mg/dl (9-20); Calcium 9.3 mg/dl (8.4-10.2); Carbon Dioxide 25 mmol/L (22-30); Chloride 104 mmol/L (98-107); Glucose 94 mg/dl (70-99); Potassium 4.7 mmol/L (3.5-5.1); Sodium 144 mmol/L (135-145); Total Bilirubin 0.5 mg/dl (0.2-1.3); eGFR > 60.00
[2024-07-22] MEDS: HEPARIN 7100 UNITS IV (17:47)
[2024-07-22] MEDS: HEPARIN 25000 UNITS/250 ML IV (17:48)
--- NOTE | 2024-07-22 17:52 | HPS.HSE ---
Family Physician
-
Family Physician:
Chief Complaint
-
Right Lower Extremity Pain
History of Present Illness
Patient is a 74 y/o male past medical history of ASCVD, hypertension, hyperlipidemia who presents with right lower extremity pain. On May 21 patient underwent right lower extremity bypass due to critical limb threatening ischemia due to
thrombosis of right SFA stent. On July 05 patient developed recurrent right lower extremity pain at which time bypass graft was found to be occluded. He underwent mechanical thrombectomy and catheter directed thrombolysis. He was discharged
from the hospital on July 08. Patient reports he was doing well and walking several times a day without any symptoms. Today he went to go play pickle ball and he developed cramping in his right calf with pain rating to the dorsum of the typical
of his claudication symptoms. He had an outpatient ultrasound that showed occlusion of the right lower extremity graft, and he was referred to the emergency department for evaluation.
Medical History
Past Medical History
Past Medical History: Reports Other
Additional Past Medical History:
Coronary Artery Disease s/p CABG
Peripheral Arterial Disease s/p Bilateral Lower Extremity Bypass
Essential Hypertension
Hyperlipidemia
Anxiety/Depression
BPH
Past Surgical History: Reports Other
Additional Past Surgical History:
Right SFA Stent
Right Lower Extremity Bypass
Left Lower Extremity Bypass
Social History
Tobacco: Former Smoker
Alcohol: Occasional
Drug: None
Family History
Family History: Not pertinent
Allergies / Home Medications
Allergies reflects when Allergies were last updated in [employer].
Home Medications with original date entered in [employer]
Allergy/Medication List:
Allergies
Allergy/AdvReac Type Severity Reaction Status Date / Time
codeine Allergy UNSURE OF Verified 07/09/24 10:56
REACTION
pollen extracts Allergy Unknown Verified 07/09/24 10:56
Home Medications
coQ10 (ubiquinol) 100 mg capsule 300 mg PO HS Supplement 05/02/23
ezetimibe 10 mg tablet (Zetia) 10 mg PO HS High Cholesterol 05/02/23
tamsulosin 0.4 mg capsule 0.4 mg PO HS Urinary Issue 05/02/23
sertraline 50 mg tablet 50 mg PO HS Depression 05/17/24
aspirin 81 mg tablet,delayed release 81 mg PO DAILY Blood Clot Prevention/Tx 07/05/24
diphenhydramine HCl 25 mg capsule (ZzzQuil) 25 mg PO HSPRN PRN sleep 07/05/24
docusate sodium 100 mg capsule (Stool Softener) 100 mg PO DAILYPRN PRN constipation 07/05/24
simvastatin 40 mg tablet 40 mg PO HS High Cholesterol 07/05/24
inclisiran 284 mg/1.5 mL subcutaneous syringe (Leqvio) 284 mg SC [id number] 07/22/24
rivaroxaban 20 mg tablet (Xarelto) 20 mg PO HS 07/22/24
Review of Systems
-
A 12 point ROS was completed and negative except as noted: Yes
Constitutional: Denies Fever or Chills
Respiratory: Denies Cough or Trouble Breathing
Cardiac: Reports Chest Pain and Palpitations
Physical Exam
Vital Signs
Vital Signs
Temp Pulse Resp BP Pulse Ox
98.2 F 64 16 161/89 96
07/22/24 15:43 07/22/24 15:43 07/22/24 15:43 07/22/24 15:43 07/22/24 15:43
Physical Exam
General: Comfortable and Conversant
HEENT: Anicteric and Moist mucous membranes
Respiratory: Clear and Non Labored Respirations
Cardiac: S1/S2 and Regular Rhythm
GI: Soft and Non Tender
Rectal: Deferred by Provider
Musculoskeletal: No Clubbing, No Cyanosis and No Edema
Skin: Warm (Both legs are warm) and Dry
Neuro: Awake, Alert, Oriented and Nonfocal/grossly intact
Psych: Calm
Laboratory Results
-
07/22/24 16:59
07/22/24 16:59
Laboratory Results
PT 15.1 Sec (11.4-14.6) H 07/22/24 16:59
INR 1.21 07/22/24 16:59
APTT 31.1 Sec (23.4-35.0) 07/22/24 16:59
Total Bilirubin 0.5 mg/dl (0.2-1.3) 07/22/24 16:59
AST 25 U/L (17-59) 07/22/24 16:59
ALT 13 U/L (0-50) 07/22/24 16:59
Alkaline Phosphatase 77 U/L (38-126) 07/22/24 16:59
Data Reviewed
-
Ultrasound: Report Reviewed by me
Lab Data: Labs Reviewed by me
Impression/Plan
-
Recurrent Right Lower Extremity Bypass Occlusion
-Consult Vascular Surgery
-Start heparin drip
-NPO after midnight for possible intervention tomorrow
ASCVD with chronically occluded LLE Bypass, RLE Bypass and CABG
-Continue aspirin
Essential Hypertension
-Monitor BP closely
Hyperlipidemia
-Continue Zetia and simvastatin
Anxiety/Depression
-Continue sertraline
BPH
-Continue tamsulosin
DVT proph: Heparin Drip
Code Status: Full Code
[2024-07-22 18:01] VITALS: BP 123/60
--- NOTE | 2024-07-22 18:44 | W.PN.UPDATE ---
Update Note
Progress Note Update
This is an addendum to the H&P written by Magnolia Mcarthur on 07/22/2024. Patient seen and examined independently with PA.
74-year-old male past medical history of PAD status post right SFA stent and bypass, CAD status post CABG, hypertension, hypercholesteremia, anxiety/depression, BPH, who was recently admitted for symptoms of right lower extremity claudication while
playing pickle ball acute thrombosis of the right lower extremity bypass underwent arteriogram with suction thrombectomy and lytic catheter placement on 07/05. He was transitioned back to Xarelto.
He presents for recurrent right lower extremity pain while playing pickle ball again concern for recurrent thrombosis of right lower extremity. Hold Xarelto and start heparin drip. Vascular surgery consulted. Patient reportedly recently saw
hematology for hypercoagulable workup. Consider hematology consult for consideration of Xarelto failure after vascular evaluation.
[2024-07-22 19:00] VITALS: BP 138/76
[2024-07-22 20:09] VITALS: BP 135/63; BMI 28.8
--- NOTE | 2024-07-22 20:09 | PTCARENOTE ---
Pt arrived from ED via stretcher and was pulled over to bed with present in the room. Pt is AAOx3, VSS, and complains of 2/10 sharp and throbbing pain in R lower leg. Pt refused pain medication. The R lower leg is cool to the touch with the
posterior tibial pulse present with a doppler. Pt is oriented to the unit and resting comfortably w/ call segal within reach.
[2024-07-22] MEDS: ZOLOFT 50 MG PO (22:01)
[2024-07-22] MEDS: FLOMAX 0.4 MG PO (22:01)
[2024-07-22] MEDS: ZETIA 10 MG PO (22:01)
[2024-07-22] MEDS: LIPITOR PO (22:02)
[2024-07-22 23:54] VITALS: BP 117/67
[2024-07-23 00:23] LABS: APTT > 200 Sec (23.4-35.0)
[2024-07-23 07:18] VITALS: BP 112/53
[2024-07-23] MEDS: ASPIR LOW (ENTERIC COATED) 81 MG PO (07:58)
[2024-07-23 08:21] LABS: Hematocrit 41.3 % (39.0-52.0); Mean Corp Hgb Conc. 33.9 g/dL (33.0-37.0); Mean Corpuscular Hgb 29.4 pg (27.0-31.0); Mean Corpuscular Volume 86.8 fL (80.0-94.0); Mean Platelet Volume 9.9 fL (7.4-10.4); Platelet Count 164 10^3/uL (130-400); Red Blood Cell Count 4.76 10^6/uL (4.70-6.10); Red Cell Dist. Width 13.5 % (11.5-14.5)
[2024-07-23] MEDS: HEPARIN 7100 UNITS IV (08:59)
[2024-07-23 09:02] LABS: Blood Urea Nitrogen 14 mg/dl (9-20); Calcium 9.3 mg/dl (8.4-10.2); Carbon Dioxide 24 mmol/L (22-30); Chloride 107 mmol/L (98-107); Estimated Creatinine Clearance 65 ml/min; Glucose 105 mg/dl (70-99); Potassium 4.5 mmol/L (3.5-5.1); Sodium 141 mmol/L (135-145); eGFR > 60.00
--- NOTE | 2024-07-23 09:24 | CON.VAS ---
Addendum entered and electronically signed by Lizandro Stoner III, MD 07/23/24 11:19:
This patient was seen and examined with MELONIE Juares. I agree with the history and physical exam as well as the assessment and plan. I have the following additions:
Well-known to me
Admitted with thrombosed DETOUR bypass, right lower extremity
Recently admitted for same problem 2 weeks ago
Was successfully lysed and discharged home on full dose anticoagulation
Vascular history notable for bilateral thrombosed SFA stents
Clinical suspicion is for hypercoagulability. Perhaps this also represents a failure of Xarelto given that he thrombosed the DETOUR while fully anticoagulated. No technical problem was identified with the stents on recent arteriogram at the time of
successful lysis or on the postoperative duplex prior to his initial thrombosis 2-3 weeks ago. He has previously thrombosed bilateral SFA stents without a clearly identifiable cause. Outpatient hypercoagulable workup ongoing. His right lower
extremity is not acutely threatened. He has a robust monophasic Doppler signal at the posterior tibial artery at the ankle. His foot is pink and warm. My plan is to obtain hematology input regarding anticoagulation strategy. No surgical or
endovascular intervention is planned at the current time.
Discussed with patient at length.
Will follow.
Signed:
Lizandro Stoner III, MD
[facility]
[phone] (vzoc)
Original Note:
Consultation
Consultation Request
Performing Provider: Herbie
Reason for Consultation: Thrombosed detour bypass
Medical History
-
Chief Complaint: Leg pain
History of Present Illness:
74-year-old male known well to the vascular surgical group with significant past medical history for peripheral arterial disease, hypertension, and hypercholesterolemia who presents to [place] ED for acute and sudden onset of right calf and pain
while playing pickle ball today. Patient is known to our group as he recently presented to the ED on 07/05/2024 with right lower extremity pain presentation, ironically also following pickleball playing at that time, and was found to have
thrombosis of his detour bypass. He was admitted and had a lysis catheter procedure to open up the bypass. He notes he was doing very well until today. He had been walking a great deal at the park and doing well with that. He denies any severe
pain at this time just has a generalized ache at the calf. Denies rest pain. He endorses medical compliance with his Xarelto 20 mg. Vascular surgical history noted below, he does endorse bilateral lower extremity endovascular interventions
performed at [facility] 'many years ago.' However, he did experience early thrombosis of his left lower extremity stent, this is chronic, and had an episode of acute stent thrombosis 1 year ago in April, that was also treated
endovascularly.
Vascular surgical history:
07/05-07/06/24: Lysis of thrombosed DETOUR by Dr uCmmings
05/21/24: Percutaneous transmural artery bypass using the DETOUR system (conduit through right femoral vein to popliteal artery) by Dr. Lizandro Stoner III
05/03/24: Right lower extremity arteriogram with third order vessel catheterization right popliteal artery via left common femoral artery puncture. Placement of [place] Viabahn 6 mm x 10 cm covered stent through occluded SFA stent by Dr. Kervin Hernandez
Prior to meeting us patient admits to multiple bilateral lower extremity endovascular interventions at [facility]
Past Medical History
Past Medical History: CAD, HTN, Hypercholesterolemia and Other (PAD)
Past Surgical History: Cardiac (CABG x 3) and Other (DETOUR bypass)
Social History
Tobacco: Non-Smoker
Personal:
Living: With Family
Family History
Family History: Reviewed & Not Pertinent
Allergies / Home Medications
Allergy/AdvReac Type Severity Reaction Status Date / Time
atorvastatin [From Lipitor] Allergy Mild Swelling Verified 07/23/24 00:06
codeine Allergy UNSURE OF Verified 07/09/24 10:56
REACTION
pollen extracts Allergy Unknown Verified 07/09/24 10:56
�Medication �Instructions �Recorded �Confirmed �Type
coQ10 (ubiquinol) 100 mg capsule 300 mg PO HS Supplement 05/02/23 07/22/24 History
ezetimibe 10 mg tablet (Zetia) 10 mg PO HS High Cholesterol 05/02/23 07/22/24 History
tamsulosin 0.4 mg capsule 0.4 mg PO HS Urinary Issue 05/02/23 07/22/24 History
sertraline 50 mg tablet 50 mg PO HS Depression 05/17/24 07/22/24 History
aspirin 81 mg tablet,delayed 81 mg PO DAILY Blood Clot 07/05/24 07/22/24 History
release Prevention/Tx
diphenhydramine HCl 25 mg capsule 25 mg PO HSPRN PRN sleep 07/05/24 07/22/24 History
(ZzzQuil)
docusate sodium 100 mg capsule 100 mg PO DAILYPRN PRN constipation 07/05/24 07/22/24 History
(Stool Softener)
simvastatin 40 mg tablet 40 mg PO HS High Cholesterol 07/05/24 07/22/24 History
inclisiran 284 mg/1.5 mL 284 mg SC [id number] 07/22/24 07/22/24 History
subcutaneous syringe (Leqvio)
rivaroxaban 20 mg tablet (Xarelto) 20 mg PO HS 07/22/24 07/22/24 History
Review of Systems
-
History Source: Patient
All other systems: Negative unless noted
Constitutional: Reports No Symptoms
Respiratory: Reports No Symptoms
Cardiac: Reports No Symptoms
Vascular: Reports Leg Pain / Claudication
Abdomen/GI: Reports No Symptoms
: Reports No Symptoms
Musculoskeletal: Reports No Symptoms
Skin: Reports No Symptoms
Neurological: Reports No Symptoms
Endocrine: Reports No Symptoms
Physical Exam
Vital Signs
Temp Pulse Resp BP Pulse Ox
98.9 F 66 18 112/53 94
07/23/24 07:18 07/23/24 07:18 07/23/24 07:18 07/23/24 07:18 07/23/24 07:18
Lab Results
07/23/24 07:54
07/23/24 07:54
Physical Exam
General: No Apparent Distress
HEENT: Normocephalic and Atraumatic
Respiratory: Non Labored Respirations
Cardiac: Negative JVD
GI: Soft and Non Tender
Musculoskeletal: No Clubbing, No Cyanosis and No Edema
Skin: Warm
Neuro: Awake, Alert and Oriented
Psych: Calm
Pulses: Right Posterior Tibial: Doppler
Assessment / Plan
-
55-year-old male presents with increase in right lower extremity pain while playing pickle ball.
Ultrasound suggest thrombosed detour bypass
Second time in a month, has had clotting issues in the past as well inside lower extremity stents
Plan:
-Recommend hematology, suspect hypercoagulable given her many times he has thrombosed his stents and now his detour bypass x 2 while fully anticoagulated on Xarelto
-DOAC failure? Coumadin?
-Will follow along
Data Reviewed
-
Ultrasound: Discussed with Patient
Labs: Labs Reviewed by me
--- NOTE | 2024-07-23 10:39 | W.PN.HOSP.TC ---
Today's Communication/Plan
-
Monitor vitals
See plan
Continue with heparin drip
Hematology evaluation
Discussed with vascular, no plans for surgery/procedure.
Assessment / Plan
Assessment / Plan
General: Comfortable and Conversant
HEENT: Anicteric and Moist mucous membranes
Respiratory: Clear and Non Labored Respirations
Cardiac: S1/S2 and Regular Rhythm
GI: Soft and Non Tender
Musculoskeletal: No Clubbing, No Cyanosis and No Edema
Neuro: Awake, Alert, Oriented and Nonfocal/grossly intact
Psych: Calm
Recurrent Right Lower Extremity Bypass Occlusion
Spoke with Dr. Stoner from vascular surgery, no plans for any procedures/surgery. They requested hematology evaluation for possible switch anticoagulation to Coumadin. Patient did follow-up with hematology outpatient last week and had
hypercoagulable workup
-cw heparin drip
Hematology evaluation
wonder if this is xarelto failure; defer to hematology; likely will need Coumadin
ASCVD with chronically occluded LLE Bypass, RLE Bypass and CABG
-Continue aspirin
Essential Hypertension
-Monitor BP closely
Hyperlipidemia
-Continue Zetia and simvastatin
Anxiety/Depression
-Continue sertraline
BPH
-Continue tamsulosin
DVT proph: Heparin Drip
Code Status: Full Code
I spent a total of 53 minutes with the patient or on the floor. More than 50% of this time involved counseling and coordination of care.
Anticipated Discharge: > 48 hours
Subjective/Interval History
-
Date of Service: July 23, 2024
Denies nausea
Objective Data
-
Labs:
Laboratory Results
07/22/24 07/23/24 07/23/24
23:46 07:54 15:15
WBC 7.0
Hgb 14.0
Hct 41.3
Plt Count 164
APTT > 200 H* 62.0 H Pending
Sodium 141
Potassium 4.5
Chloride 107
Carbon Dioxide 24
BUN 14
Creatinine 1.0
Glucose 105 H
Calcium 9.3
Vital Signs:
Vital Signs
Temp Pulse Resp BP Pulse Ox
98.9 F 66 18 112/53 94
07/23/24 07:18 07/23/24 07:18 07/23/24 07:18 07/23/24 07:18 07/23/24 07:18
I&O
07/22/24 07/23/24 07/24/24
06:59 06:59 06:59
Intake Total 0 / 0
Output Total 575 / 575
Balance -575 / -575
--- NOTE | 2024-07-23 11:53 | PTCARENOTE ---
Patient's PTT 62.0 at 0830. Followed protocol with bolus and increased rate of heparin from 1200 units/hout to 1600 units/hour. Next PTT due at 1515.
--- NOTE | 2024-07-23 12:45 | PTCARENOTE ---
As per surgery - no surgical intervention. Patient ordered regular diet. Heparin drip maintained. Awaiting to see if patient needs to remain on bedrest.
[2024-07-23] MEDS: HEPARIN 25000 UNITS/250 ML IV (13:28)
[2024-07-23 15:25] VITALS: BP 127/69
[2024-07-23 16:01] LABS: APTT 198.8 Sec (23.4-35.0)
--- NOTE | 2024-07-23 16:56 | CM ---
Alert awake oriented patient who lives with his Florence who lives in a 2 story home with 2 step to enter and bed and bathroom on first floor. He is independent in driving and in all activities of daily living.He was offered VN he declined need.
[facility] VN hx / No SNF history
Pharmacy [facility]
PCP DR Escobar
PLAN Home Declined VN
--- NOTE | 2024-07-23 17:06 | CON.ONC ---
Impression
Impression
recurrent thrombosis of LE stents, detour bypass despite Xarelto, ASA
PVD, CAD, HLD
Plan
Plan
Agree with heparin bridge to Coumadin. Could consider Lovenox if agreeable to d/c before INR is therapeutic
Will see if any [facility] thrombophilia labs have resulted - none currently in his outpatient chart
Add'l risk factors for thrombosis include PVD, HLD, prior tobacco abuse, multiple vascular interventions
Outpatient heme f/u with Dr. Deal on 08/02 to review full results and consider additional mgmt. if indicated
Patient History
History of Present Illness
Asked to see patient re: recurrent thromboses despite anticoagulation. He has a long history of PVD, and has followed with vascular surgery at [place], previously [facility]. He reportedly had multiple bilateral lower extremity
endovascular interventions at [facility] before establishing care at [facility]. He describes multiple episodes of in-stent thrombosis despite aspirin and Plavix. He underwent percutaneous transmural artery bypass using the detour
system on May 21, 2024. He developed thrombosis of the detour in June 2024, requiring lysis. Most recently he was on full dose Xarelto and aspirin, and was playing pickle ball, and developed sudden onset of right calf pain. Ultrasound
suggested thrombosis again of the detour bypass. He was started on heparin, with plans to start warfarin tonight.
He has a h/o CAD with CABG x3, HTN, hyperlipidemia. He has a remote smoking history. He notes claudication symptoms.
He was seen for outpatient hematology evaluation last week, underwent thrombophilia testing at [facility], which is currently pending.
Past-Medical/Surgical History
PMH/Sh - as per the HPI
SH - former smoker
FH - N/C
Patient Medication
�Medication �Instructions �Recorded �Confirmed �Last Taken �Type
coQ10 (ubiquinol) 100 mg capsule 300 mg PO HS Supplement 05/02/23 07/22/24 07/08/24 History
ezetimibe 10 mg tablet (Zetia) 10 mg PO HS High Cholesterol 05/02/23 07/22/24 07/08/24 History
tamsulosin 0.4 mg capsule 0.4 mg PO HS Urinary Issue 05/02/23 07/22/24 07/08/24 History
sertraline 50 mg tablet 50 mg PO HS Depression 05/17/24 07/22/24 07/08/24 History
aspirin 81 mg tablet,delayed 81 mg PO DAILY Blood Clot 07/05/24 07/22/24 07/09/24 History
release Prevention/Tx
diphenhydramine HCl 25 mg capsule 25 mg PO HSPRN PRN sleep 07/05/24 07/22/24 07/08/24 History
(ZzzQuil)
docusate sodium 100 mg capsule 100 mg PO DAILYPRN PRN constipation 07/05/24 07/22/24 07/08/24 History
(Stool Softener)
simvastatin 40 mg tablet 40 mg PO HS High Cholesterol 07/05/24 07/22/24 07/08/24 History
inclisiran 284 mg/1.5 mL 284 mg SC [id number] High Cholesterol 07/22/24 07/22/24 Unknown History
subcutaneous syringe (Leqvio)
rivaroxaban 20 mg tablet (Xarelto) 20 mg PO HS Blood Clot 07/22/24 07/22/24 Unknown History
Prevention/Tx
Active Medications
Generic Name Dose Route Start Last Admin
Trade Name Freq PRN Reason Stop Dose Admin
Acetaminophen 650 mg 07/22/24 20:06
Acetaminophen 325 Mg Tablet PO 08/19/24 20:05
Q4HPRN PRN
mild pain/ fever>100.5F
Aspirin 81 mg 07/23/24 08:00 07/23/24 07:58
Aspirin 81 Mg (Enteric Coated) Tablet PO 08/20/24 07:59 81 mg
DAILY JUAN Administration
Atorvastatin Calcium 20 mg 07/22/24 22:00 07/22/24 22:02
Atorvastatin (Lipitor) 20 Mg Tablet PO 08/19/24 21:59 Not Given
HS JUAN
Diphenhydramine HCl 25 mg 07/22/24 20:06
Diphenhydramine 25 Mg Capsule PO 08/19/24 20:05
HSPRN PRN
sleep
Ezetimibe 10 mg 07/22/24 22:00 07/22/24 22:01
Ezetimibe (Zetia) 10 Mg Tablet PO 08/19/24 21:59 10 mg
HS JUAN Administration
Heparin Sodium 7,100 units 07/22/24 17:33 07/23/24 08:59
Heparin 80 Units/Kg Rebolus-Do Not Discard IV 08/19/24 17:32 7,100 units
PRN PRN Administration
PTT < OR = 64 seconds
Heparin Sodium 3,600 units 07/22/24 17:33
Heparin 40 Units/Kg Rebolus-Do Not Discard IV 08/19/24 17:32
PRN PRN
PTT = 64.1 to 72.9 seconds
Heparin Sodium 25,000 units in 250 mls @ 0 mls/hr 07/22/24 17:15 07/23/24 13:28
Heparin 41162 Units/250 Ml IV 250 mls
PER PROTOCOL JUAN Administration
Protocol
Per Protocol
Sertraline HCl 50 mg 07/22/24 22:00 07/22/24 22:01
Sertraline 50 Mg Tablet PO 08/19/24 21:59 50 mg
HS JUAN Administration
Sodium Chloride 0 flush 07/22/24 21:00
Sodium Chloride 0.9% (Flush) Syringe IV 08/19/24 20:59
PER PROTOCOL JUAN
Tamsulosin HCl 0.4 mg 07/22/24 22:00 07/22/24 22:01
Tamsulosin 0.4 Mg Capsule PO 08/19/24 21:59 0.4 mg
HS JUAN Administration
Physical Exam
-
General: Well Developed, Well Nourished, No Apparent Distress and Comfortable
Extremities: Negative Edema
Neurology: Non Focal, No Lateralizing Symptoms and No Word Finding Difficulty
Skin: Warm and Dry
Psych: Calm and Intact Judgement/Insight
Labs
Lab Results
WBC 7.0 10^3/uL (4.8-10.8) 07/23/24 07:54
RBC 4.76 10^6/uL (4.70-6.10) 07/23/24 07:54
Hgb 14.0 g/dL (13.0-18.0) 07/23/24 07:54
Hct 41.3 % (39.0-52.0) 07/23/24 07:54
MCV 86.8 fL (80.0-94.0) 07/23/24 07:54
MCH 29.4 pg (27.0-31.0) 07/23/24 07:54
MCHC 33.9 g/dL (33.0-37.0) 07/23/24 07:54
RDW 13.5 % (11.5-14.5) 07/23/24 07:54
Plt Count 164 10^3/uL (130-400) 07/23/24 07:54
MPV 9.9 fL (7.4-10.4) 07/23/24 07:54
Abs Immat Gran (auto) 0.0 10^3/uL (0-0.05) 07/22/24 16:59
Absolute Neuts (auto) 6.6 10^3/uL (1.4-6.5) H 07/22/24 16:59
Absolute Lymphs (auto) 2.1 10^3/uL (1.2-3.4) 07/22/24 16:59
Absolute Monos (auto) 0.6 10^3/uL (0.1-0.6) 07/22/24 16:59
Absolute Eos (auto) 0.2 10^3/uL (0-0.7) 07/22/24 16:59
Absolute Basos (auto) 0.0 10^3/uL (0-0.2) 07/22/24 16:59
Immature Gran % 0.2 % (0-0.5) 07/22/24 16:59
Neutrophils % 69.3 % (42.2-75.2) 07/22/24 16:59
Lymphocytes % 22.2 % (20.5-51.1) 07/22/24 16:59
Monocytes % 6.3 % (1.7-9.3) 07/22/24 16:59
Eosinophils % 1.6 % (0-6) 07/22/24 16:59
Basophils % 0.4 % (0-2) 07/22/24 16:59
Creatinine 1.0 mg/dL (0.7-1.3) 07/23/24 07:54
Vital Signs
Vital Signs
Temp Pulse Resp BP Pulse Ox
98.1 F 67 18 127/69 96
07/23/24 15:25 07/23/24 15:25 07/23/24 15:25 07/23/24 15:25 07/23/24 15:25
[2024-07-23] MEDS: COUMADIN 5 MG PO (17:41)
--- NOTE | 2024-07-23 18:24 | PTCARENOTE ---
Patient's PTT 198.8 this afternoon. Heparin held for one hour and restarted 300 units less - currently at 1300 units/hour from 1600 units/hour. Coumadin administered as per order. Gave patient Coumadin teaching sheets. Patient and verbalize
understanding of teaching.
[2024-07-23] MEDS: ZETIA 10 MG PO (21:28)
[2024-07-23] MEDS: LIPITOR PO (21:28)
[2024-07-23] MEDS: FLOMAX 0.4 MG PO (21:28)
[2024-07-23] MEDS: ZOLOFT 50 MG PO (21:28)
[2024-07-23 23:46] LABS: APTT 74.6 Sec (23.4-35.0)
[2024-07-23 23:55] VITALS: BP 113/62
[2024-07-24 07:17] LABS: Hematocrit 39.7 % (39.0-52.0); Hemoglobin 13.1 g/dL (13.0-18.0); Mean Corpuscular Hgb 28.1 pg (27.0-31.0); Mean Platelet Volume 10.3 fL (7.4-10.4); Platelet Count 163 10^3/uL (130-400); Red Blood Cell Count 4.67 10^6/uL (4.70-6.10); Red Cell Dist. Width 13.7 % (11.5-14.5); White Blood Cell Count 5.7 10^3/uL (4.8-10.8)
[2024-07-24 07:27] LABS: INR 1.09; PT 13.9 Sec (11.4-14.6)
[2024-07-24 07:53] VITALS: BP 120/68
[2024-07-24 08:07] LABS: Blood Urea Nitrogen 20 mg/dl (9-20); Calcium 9.2 mg/dl (8.4-10.2); Carbon Dioxide 25 mmol/L (22-30); Chloride 107 mmol/L (98-107); Estimated Creatinine Clearance 65 ml/min; Glucose 103 mg/dl (70-99); Potassium 4.6 mmol/L (3.5-5.1); Sodium 143 mmol/L (135-145); eGFR > 60.00
[2024-07-24 08:21] LABS: APTT 73.6 Sec (23.4-35.0)
[2024-07-24] MEDS: ASPIR LOW (ENTERIC COATED) 81 MG PO (08:22)
--- NOTE | 2024-07-24 10:19 | PTCARENOTE ---
Patient with therapeutic PTT this morning. PTT scheduled for tomorrow morning as per protocol.
[2024-07-24] MEDS: HEPARIN 25000 UNITS/250 ML IV (11:09)
--- NOTE | 2024-07-24 12:08 | W.PN.HOSP.TC ---
Today's Communication/Plan
-
Monitor vital signs
see plan
Monitor INR daily
Coumadin today
Continue heparin drip
Hematology and vascular following
Contacted PCP regarding Coumadin management outpatient, awaiting reply
Assessment / Plan
Assessment / Plan
General: Comfortable and Conversant
HEENT: Anicteric and Moist mucous membranes
Respiratory: Clear and Non Labored Respirations
Cardiac: S1/S2 and Regular Rhythm
GI: Soft and Non Tender
Musculoskeletal: No Clubbing, No Cyanosis and No Edema
Neuro: Awake, Alert, Oriented and Nonfocal/grossly intact
Psych: Calm
Recurrent Right Lower Extremity Bypass Occlusion
Spoke with Dr. Stoner from vascular surgery, no plans for any procedures/surgery. They requested hematology evaluation for possible switch anticoagulation to Coumadin. Patient did follow-up with hematology outpatient last week and had
hypercoagulable workup
-cw heparin drip
Hematology following. Continue with Coumadin bridge
Likely this is xarelto failure
Texted and called patient's primary care provider Dr. Escobar regarding managing Coumadin outpatient, awaiting reply
INR daily
ASCVD with chronically occluded LLE Bypass, RLE Bypass and CABG
-Continue aspirin
Essential Hypertension
-Monitor BP closely
Hyperlipidemia
-Continue Zetia and simvastatin
Anxiety/Depression
-Continue sertraline
BPH
-Continue tamsulosin
DVT proph: Heparin Drip
Code Status: Full Code
I spent a total of 51 minutes with the patient or on the floor. More than 50% of this time involved counseling and coordination of care.
Anticipated Discharge: 24 - 48 hours
Subjective/Interval History
-
Date of Service: July 24, 2024
denies nausea
Objective Data
-
Labs:
Laboratory Results
07/24/24
06:39
WBC 5.7
Hgb 13.1
Hct 39.7
Plt Count 163
PT 13.9
INR 1.09
APTT 73.6 H
Sodium 143
Potassium 4.6
Chloride 107
Carbon Dioxide 25
BUN 20
Creatinine 1.0
Glucose 103 H
Calcium 9.2
Vital Signs:
Vital Signs
Temp Pulse Resp BP Pulse Ox
98.4 F 56 18 120/68 95
07/24/24 07:53 07/24/24 07:53 07/24/24 07:53 07/24/24 07:53 07/24/24 10:29
I&O
07/23/24 07/24/24 07/25/24
06:59 06:59 06:59
Intake Total 0 / 0 840 / 840
Output Total 575 / 575 400 / 400
Balance -575 / -575 440 / 440
[2024-07-24 16:17] VITALS: BP 133/78
--- NOTE | 2024-07-24 16:33 | CM ---
Spoke with pt in room .
He is transitioning form Hep gtt to Coumadin.
He declined VN at [facility].
PLAN Home no needs
[2024-07-24] MEDS: COUMADIN 5 MG PO (17:11)
[2024-07-24] MEDS: TYLENOL 650 MG PO (18:16)
--- NOTE | 2024-07-24 18:32 | PTCARENOTE ---
Patient with complaints of right calf pain post ambulating in halls. Patient given Tylenol as ordered. Patient rates pain 5/10 on pain scale. Pain is not new for him.
[2024-07-24] MEDS: ZETIA 10 MG PO (20:35)
[2024-07-24] MEDS: ZOLOFT 50 MG PO (20:35)
[2024-07-24] MEDS: FLOMAX 0.4 MG PO (20:35)
[2024-07-24] MEDS: LIPITOR 20 MG PO (20:38)
[2024-07-24 23:57] VITALS: BP 113/66
[2024-07-25] MEDS: HEPARIN 25000 UNITS/250 ML IV (07:17)
[2024-07-25 07:22] LABS: % Basophils 0.5 % (0-2); % Eosinophils 2.8 % (0-6); % Immature Granulocytes 0.4 % (0-0.5); % Lymphocytes 31.3 % (20.5-51.1); % Monocytes 7.8 % (1.7-9.3); % Neutrophils 57.2 % (42.2-75.2); Absolute Eosinophils 0.2 10^3/uL (0-0.7); Absolute Lymphocytes 1.8 10^3/uL (1.2-3.4); Absolute Monocytes 0.4 10^3/uL (0.1-0.6); Absolute Neutrophils 3.2 10^3/uL (1.4-6.5); Hematocrit 40.9 % (39.0-52.0); Hemoglobin 13.8 g/dL (13.0-18.0); Mean Corp Hgb Conc. 33.7 g/dL (33.0-37.0); Mean Corpuscular Hgb 29.4 pg (27.0-31.0); Mean Corpuscular Volume 87.2 fL (80.0-94.0); Mean Platelet Volume 10.1 fL (7.4-10.4); Nucleated Red Blood Cells % 0 % (-); Platelet Count 152 10^3/uL (130-400); Red Blood Cell Count 4.69 10^6/uL (4.70-6.10); Red Cell Dist. Width 13.5 % (11.5-14.5); White Blood Cell Count 5.6 10^3/uL (4.8-10.8)
[2024-07-25 07:24] LABS: PT 14.8 Sec (11.4-14.6)
[2024-07-25 07:26] LABS: APTT 76.5 Sec (23.4-35.0)
[2024-07-25 07:50] LABS: Blood Urea Nitrogen 15 mg/dl (9-20); Calcium 9.2 mg/dl (8.4-10.2); Carbon Dioxide 23 mmol/L (22-30); Chloride 106 mmol/L (98-107); Estimated Creatinine Clearance 72 ml/min; Glucose 101 mg/dl (70-99); Potassium 4.4 mmol/L (3.5-5.1); Sodium 142 mmol/L (135-145); eGFR > 60.00
[2024-07-25 07:51] VITALS: BP 136/65
[2024-07-25] MEDS: ASPIR LOW (ENTERIC COATED) 81 MG PO (07:54)
[2024-07-25] MEDS: LOVENOX 90 MG SC ×2 (09:22→20:21)
--- NOTE | 2024-07-25 09:30 | PTCARENOTE ---
Lovenox teaching done this AM. Patient understood process of Lovenox injection. Will continue to monitor.
--- NOTE | 2024-07-25 12:25 | W.PN.HOSP.TC ---
Today's Communication/Plan
-
Monitor vital signs
see plan
Lovenox bridge with Coumadin, Lovenox teaching
Discussed with spouse over the phone
Discussed with patient's primary care provider who will manage his INR outpatient
Possible DC tomorrow
Assessment / Plan
Assessment / Plan
General: Comfortable and Conversant
HEENT: Anicteric and Moist mucous membranes
Respiratory: Clear and Non Labored Respirations
Cardiac: S1/S2 and Regular Rhythm
GI: Soft and Non Tender
Musculoskeletal: No Clubbing, No Cyanosis and No Edema
Neuro: Awake, Alert, Oriented and Nonfocal/grossly intact
Psych: Calm
Recurrent Right Lower Extremity Bypass Occlusion
Spoke with Dr. Stoner from vascular surgery, no plans for any procedures/surgery. They requested hematology evaluation for possible switch anticoagulation to Coumadin. Patient did follow-up with hematology outpatient last week and had
hypercoagulable workup
Change heparin drip to Lovenox
Hematology following. Continue with Coumadin bridge
Likely this is xarelto failure
Spoke with Dr. Escobar and he will manage Coumadin outpatient
INR daily
ASCVD with chronically occluded LLE Bypass, RLE Bypass and CABG
-Continue aspirin
Essential Hypertension
-Monitor BP closely
Hyperlipidemia
-Continue Zetia and simvastatin
Anxiety/Depression
-Continue sertraline
BPH
-Continue tamsulosin
DVT proph: lovenox
Code Status: Full Code
I spent a total of 52 minutes with the patient or on the floor. More than 50% of this time involved counseling and coordination of care.
Anticipated Discharge: Within 24 hours
Subjective/Interval History
-
Date of Service: July 25, 2024
denies nausea
Objective Data
-
Labs:
Laboratory Results
07/25/24
06:26
WBC 5.6
Hgb 13.8
Hct 40.9
Plt Count 152
PT 14.8 H
INR 1.10
APTT 76.5 H
Sodium 142
Potassium 4.4
Chloride 106
Carbon Dioxide 23
BUN 15
Creatinine 0.9
Glucose 101 H
Calcium 9.2
Vital Signs:
Vital Signs
Temp Pulse Resp BP Pulse Ox
97.6 F 59 16 136/65 94
07/25/24 07:51 07/25/24 07:51 07/25/24 07:51 07/25/24 07:51 07/25/24 08:00
I&O
07/24/24 07/25/24 07/26/24
06:59 06:59 06:59
Intake Total 840 / 840 1060 / 1060
Output Total 400 / 400
Balance 440 / 440 1060 / 1060
[2024-07-25 15:00] VITALS: BP 151/75
--- NOTE | 2024-07-25 16:29 | CM ---
Spoke with pt and in in room .
He is off Hep gtt changed to Coumadin.
He declined VN at [facility]
PLAN Home no needs
[2024-07-25] MEDS: COUMADIN 5 MG PO (17:21)
[2024-07-25] MEDS: ZETIA 10 MG PO (20:21)
[2024-07-25] MEDS: ZOLOFT 50 MG PO (20:21)
[2024-07-25] MEDS: FLOMAX 0.4 MG PO (20:21)
[2024-07-25] MEDS: LIPITOR 20 MG PO (20:23)
[2024-07-25 23:34] VITALS: BP 129/70
[2024-07-26 07:00] VITALS: BP 134/70
[2024-07-26 07:36] LABS: % Basophils 0.6 % (0-2); % Eosinophils 2.5 % (0-6); % Immature Granulocytes 0.2 % (0-0.5); % Lymphocytes 26.5 % (20.5-51.1); % Monocytes 8.2 % (1.7-9.3); Absolute Eosinophils 0.1 10^3/uL (0-0.7); Absolute Lymphocytes 1.4 10^3/uL (1.2-3.4); Absolute Monocytes 0.4 10^3/uL (0.1-0.6); Absolute Neutrophils 3.3 10^3/uL (1.4-6.5); Hematocrit 41.4 % (39.0-52.0); Mean Corp Hgb Conc. 33.8 g/dL (33.0-37.0); Mean Corpuscular Hgb 29.5 pg (27.0-31.0); Mean Corpuscular Volume 87.2 fL (80.0-94.0); Mean Platelet Volume 9.8 fL (7.4-10.4); Nucleated Red Blood Cells % 0 % (-); Platelet Count 146 10^3/uL (130-400); Red Blood Cell Count 4.75 10^6/uL (4.70-6.10); Red Cell Dist. Width 13.4 % (11.5-14.5); White Blood Cell Count 5.2 10^3/uL (4.8-10.8)
[2024-07-26 07:47] LABS: INR 1.12; PT 14.7 Sec (11.4-14.6)
[2024-07-26 07:55] VITALS: BP 134/70
[2024-07-26] MEDS: LOVENOX 90 MG SC (07:55)
[2024-07-26] MEDS: ASPIR LOW (ENTERIC COATED) 81 MG PO (07:56)
[2024-07-26 09:12] LABS: Blood Urea Nitrogen 17 mg/dl (9-20); Calcium 9.4 mg/dl (8.4-10.2); Carbon Dioxide 25 mmol/L (22-30); Chloride 107 mmol/L (98-107); Estimated Creatinine Clearance 72 ml/min; Glucose 97 mg/dl (70-99); Potassium 4.5 mmol/L (3.5-5.1); Sodium 144 mmol/L (135-145); eGFR > 60.00
--- NOTE | 2024-07-26 09:36 | W.PN.UPDATE ---
Update Note
Progress Note Update
Full thrombophilia profile pending, however, preliminary negative for antithrombin 3, protein S deficiency, protein C deficiency. Prothrombin mutation, B2 glycoprotein, lupus anticoagulant, cardiolipin Ab, and FVL are still pending
--- NOTE | 2024-07-26 10:25 | W.PN.HOSP.TC ---
Today's Communication/Plan
-
monitor vitals
see plan
dc today
time of discharge 39 minutes
Assessment / Plan
Assessment / Plan
General: Comfortable and Conversant
HEENT: Anicteric and Moist mucous membranes
Respiratory: Clear and Non Labored Respirations
Cardiac: S1/S2 and Regular Rhythm
GI: Soft and Non Tender
Musculoskeletal: No Clubbing, No Cyanosis and No Edema
Neuro: Awake, Alert, Oriented and Nonfocal/grossly intact
Psych: Calm
Recurrent Right Lower Extremity Bypass Occlusion
Spoke with Dr. Stoner from vascular surgery, no plans for any procedures/surgery. They requested hematology evaluation for possible switch anticoagulation to Coumadin. Patient did follow-up with hematology outpatient last week and had
hypercoagulable workup
Change heparin drip to Lovenox
Hematology following. Continue with Coumadin bridge
Likely this is xarelto failure
Spoke with Dr. Escobar and he will manage Coumadin outpatient
INR daily
repeat US 07/25 with occluded bypass; discussed with Dr Stoner from vascular who is ok with patient going home with outpatient follow up which he already has. INR script provided for 07/29 with results faxed to his PCP Dr Escobar.
ASCVD with chronically occluded LLE Bypass, RLE Bypass and CABG
-Continue aspirin
Essential Hypertension
-Monitor BP closely
Hyperlipidemia
-Continue Zetia and simvastatin
Anxiety/Depression
-Continue sertraline
BPH
-Continue tamsulosin
DVT proph: lovenox
Code Status: Full Code
Anticipated Discharge: Today
Subjective/Interval History
-
Date of Service: July 26, 2024
denies nausea
Objective Data
-
Labs:
Laboratory Results
07/26/24
06:48
WBC 5.2
Hgb 14.0
Hct 41.4
Plt Count 146
PT 14.7 H
INR 1.12
Sodium 144
Potassium 4.5
Chloride 107
Carbon Dioxide 25
BUN 17
Creatinine 0.9
Glucose 97
Calcium 9.4
Vital Signs:
Vital Signs
Temp Pulse Resp BP Pulse Ox
97.8 F 60 18 134/70 96
07/26/24 07:00 07/26/24 07:00 07/26/24 07:00 07/26/24 07:00 07/26/24 08:00
I&O
07/25/24 07/26/24 07/27/24
06:59 06:59 06:59
Intake Total 1060 / 1060 600 / 600
Balance 1060 / 1060 600 / 600
--- NOTE | 2024-07-26 11:41 | W.DCSUMMARY ---
Discharge Summary
Discharge Data
Date of Admission: 07/22/24
Date of Discharge: 07/26/24
-
Pending Results: Yes
Hospital Course
74-year-old male with past medical history of PAD, ASCVD with chronically occluded left lower extremity bypass, essential hypertension, hyperlipidemia, anxiety/depression, BPH, right lower extremity bypass occlusion status post recent procedure came
to the hospital with recurrence of right lower extremity bypass occlusion. Patient was seen by vascular throughout hospitalization and was put on heparin drip initially. Patient was also seen by hematology and he already had some workup done with
hematology outpatient which was still pending. Hematology recommended patient to be switched to Coumadin instead of Xarelto due to failure. Patient was then started on Coumadin. Prior to discharge he was put on Lovenox with coumadin bridging.
Prior to discharge patient was given INR prescription for it to be checked with his primary care provider on 07/29/2024. Once patient symptoms continue to improve, he was then discharged home with instructions to follow-up with all his physicians
outpatient.
Discharge Plan
-
Patient Disposition: Home with Home Care
Discharge Diagnosis/Procedures: Recurrent Right Lower Extremity Bypass Occlusion
Diet: As tolerated
Activity: As tolerated
Driving Restrictions: As prior to admission
Bathing Restrictions: None
Blood Work: INR on monday with pcp
Activity Restrictions/Additional Instructions:
Please follow-up with hematology
Referrals:
Lizandro Stoner III, MD [Active] - 08/07/24 1:15 pm (Vascular office follow up)
Angelica Deal DO [Active] - in less than 1 week
Nicolas Escobar DO [Family Provider] - in less than 1 week
Prescriptions:
New
warfarin [Jantoven] 5 mg Tablet
5 mg PO QPM Qty: 30 0RF
enoxaparin 100 mg/mL Syringe
90 mg SC Q12H Qty: 10 0RF
acetaminophen 325 mg Tablet
650 mg PO Q4HPRN PRN (Reason: mild pain/ fever>100.5F) Qty: 0 0RF
Continued
ezetimibe [Zetia] 10 mg Tablet
10 mg PO HS
coQ10 (ubiquinol) 100 mg Capsule
300 mg PO HS
tamsulosin 0.4 MG capsule
0.4 mg PO HS
sertraline 50 mg Tablet
50 mg PO HS
aspirin 81 mg Tablet,Delayed Release (Dr/Ec)
81 mg PO DAILY
simvastatin 40 mg Tablet
40 mg PO HS
diphenhydramine HCl [ZzzQuil] 25 mg Capsule
25 mg PO HSPRN PRN (Reason: sleep)
docusate sodium [Stool Softener] 100 mg Capsule
100 mg PO DAILYPRN PRN (Reason: constipation)
Leqvio 284 mg/1.5 mL Syringe
284 mg SC [id number]
Patient Comments:
07/22/24: Patient will take second dose in September.
Discontinued
Xarelto 20 mg tablet
20 mg PO HS
Discharge Orders:
Discharge Patient (As Directed); Ordered 07/26/24
Ordered By: Dae Cummings
Discharge Date and Time
Discharge Date/Time: 07/26/24 11:55
Print Language: HEBREW
--- NOTE | 2024-07-26 15:18 | CM ---
MD entered order for discharge.
Spoke with pt and in in room .
Pt declined need for VN .
to drive him home.
IMM reviewed signed on chart.
PLAN Home no needs
== END 2024-07-26 11:55 | disposition home or self-care (01) | DRG 300 ==
LOC: 4 EAST ACU 18:40
PROVIDERS: Physician Assistant Medical; ADMITTING PHYSICIAN Hospitalist; ATTENDING PHYSICIAN Internal Medicine; CONSULT PHYSICIAN Internal Medicine Hematology & Oncology; EMERGENCY PHYSICIAN Emergency Medicine; FAMILY PHYSICIAN Family Medicine; OTHER PHYSICIAN Surgery Vascular Surgery
DX: I74.3 Embolism and thrombosis of arteries of the lower extremities (principal); T82.898A Other specified complication of vascular prosthetic devices, implants and grafts, initial encounter; I25.10 Atherosclerotic heart disease of native coronary artery without angina pectoris; I70.229 Atherosclerosis of native arteries of extremities with rest pain, unspecified extremity; E78.00 Pure hypercholesterolemia, unspecified; Z87.891 Personal history of nicotine dependence; I10 Essential (primary) hypertension; F41.9 Anxiety disorder, unspecified; F32.A Depression, unspecified; N40.0 Benign prostatic hyperplasia without lower urinary tract symptoms; Y83.1 Surgical operation with implant of artificial internal device as the cause of abnormal reaction of the patient, or of later complication, without mention of misadventure at the time of the procedure
CPT/HCPCS: 80048; 80053; 85025; 85027; 85610; 85730; 93926; 96374; 99285

== ENCOUNTER 2024-10-01 10:20 | Outpatient (RCR) | payer MEDICARE, SELFPAY ==
[2024-10-01 11:12] VITALS: BP 139/78
[2024-10-01] MEDS: LEQVIO 284 MG SC (11:22)
== END 2024-10-02 10:10 | disposition home or self-care (01) ==
LOC: OID 10:20
PROVIDERS: ATTENDING PHYSICIAN Nurse Practitioner; FAMILY PHYSICIAN Family Medicine
DX: I25.10 Atherosclerotic heart disease of native coronary artery without angina pectoris (principal); I73.9 Peripheral vascular disease, unspecified; E78.5 Hyperlipidemia, unspecified
CPT/HCPCS: 96372; J1306

== ENCOUNTER → 2024-11-08 11:11 | Outpatient (REF) | payer MEDICARE, SELFPAY | LOC: DHVS 11:11 | PROVIDERS: ATTENDING PHYSICIAN Surgery Vascular Surgery; FAMILY PHYSICIAN Family Medicine; REFERRING PHYSICIAN Internal Medicine | DX: I73.9 Peripheral vascular disease, unspecified (principal) | CPT/HCPCS: 93922 ==

== ENCOUNTER → 2024-11-18 08:06 | Outpatient (REF) | payer MEDICARE, SELFPAY ==
--- NOTE | 2024-11-18 09:24 | CARDSERVLU ---
Echocardiogram with [facility] completed after protocol screening completed. Allergies verified.
Patent IV site: __Right antecubital 22 G PC___
IV site flushed with 0.9% NaCl pre and post administration.
Diluted bolus method utilized to enhance visualization of ventricular alfonso.
Total volume given: _3___ mL
Patient tolerated all procedures well without complications.
Heplock D/c ed at 0922, site clear, no redness, no edema. Pressure held for few minutes as pt on anticoagulants, no bleeding, 2x2 applied and taped. Pt offers no complaints.
== END ==
LOC: RCS 08:06
PROVIDERS: ATTENDING PHYSICIAN Internal Medicine; FAMILY PHYSICIAN Family Medicine
DX: I25.5 Ischemic cardiomyopathy (principal); I25.10 Atherosclerotic heart disease of native coronary artery without angina pectoris; I25.2 Old myocardial infarction
CPT/HCPCS: 93306; Q9950

== ENCOUNTER → 2025-01-20 13:11 | Outpatient (REF) | payer MEDICARE, SELFPAY | LOC: RAD 13:11 | PROVIDERS: ATTENDING PHYSICIAN Surgery Vascular Surgery; FAMILY PHYSICIAN Family Medicine | DX: I73.9 Peripheral vascular disease, unspecified (principal) | CPT/HCPCS: 75635; Q9967 ==

== ENCOUNTER → 2025-02-05 12:54 | Outpatient (REF) | payer MEDICARE, SELFPAY | LOC: RAD 12:54 | PROVIDERS: ATTENDING PHYSICIAN Physician Assistant; FAMILY PHYSICIAN Family Medicine; OTHER PHYSICIAN Surgery Vascular Surgery | DX: I86.8 Varicose veins of other specified sites (principal); Z98.890 Other specified postprocedural states; M79.605 Pain in left leg; I73.9 Peripheral vascular disease, unspecified | CPT/HCPCS: 93922; 93925; 93970 ==

== ENCOUNTER → 2025-02-20 09:47 | Outpatient (REF) | payer MEDICARE, SELFPAY | LOC: HWRAD 09:47 | PROVIDERS: ATTENDING PHYSICIAN Physician Assistant Medical | DX: M25.562 Pain in left knee (principal) | CPT/HCPCS: 73564 ==

== ENCOUNTER 2025-03-31 10:23 | Outpatient (RCR) | payer MEDICARE, SELFPAY ==
[2025-03-31 10:40] VITALS: BP 137/64
[2025-03-31] MEDS: LEQVIO 284 MG SC (10:52)
== END 2025-04-01 08:30 | disposition home or self-care (01) ==
LOC: OID 10:23
PROVIDERS: ATTENDING PHYSICIAN Nurse Practitioner; FAMILY PHYSICIAN Family Medicine
DX: I25.10 Atherosclerotic heart disease of native coronary artery without angina pectoris (principal); E78.5 Hyperlipidemia, unspecified; I73.9 Peripheral vascular disease, unspecified; I25.5 Ischemic cardiomyopathy
CPT/HCPCS: 96372; J1306

== ENCOUNTER → 2025-05-13 13:28 | Outpatient (REF) | payer MEDICARE, SELFPAY | LOC: RAD 13:28 | PROVIDERS: ATTENDING PHYSICIAN Surgery Vascular Surgery; FAMILY PHYSICIAN Family Medicine | DX: I73.9 Peripheral vascular disease, unspecified (principal) | CPT/HCPCS: 93922 ==

== ENCOUNTER → 2025-08-30 07:15 | Outpatient (REF) | payer MEDICARE, SELFPAY | LOC: DHSLP 07:15 | PROVIDERS: ATTENDING PHYSICIAN Internal Medicine Critical Care Medicine; FAMILY PHYSICIAN Family Medicine | DX: G47.33 Obstructive sleep apnea (adult) (pediatric) (principal); R09.02 Hypoxemia | CPT/HCPCS: 95800 ==